=== PATIENT | female | born 1940 | race Caucasian/White ===

== ENCOUNTER 2019-12-13 00:57 | Inpatient (IN) | payer MEDICARE, SELFPAY ==
[2019-12-13] VITALS (22 sets, daily range): BP systolic 109–145; BP diastolic 62–89; PULSE 16–98; RESP 16–24; TEMP 36.6–36.7; O2SAT 88–97; BMI 25.4
--- NOTE | ~2019-12-13 | XR_ITS ---
EXAMINATION: XR chest 2V DATE: 12/13/2019 02:01 INDICATION: Shortness of breath TECHNIQUE: PA and lateral views of the chest were obtained. COMPARISON: Chest radiograph dated 11/13/2019 FINDINGS: Airspace opacities in the bilateral lower lung zones. Bilateral calcified pulmonary nodules and calci fied mediastinal lymph nodes consistent with old granulomatous disease. Blunting at the costophrenic angles consistent with small bilateral pleural effusions. No pneumothorax. Megaly. Median sternotomy wires and mediastinal surgical clips are seen, likely from prior coronary artery bypass grafting. Tor tuous and atherosclerotic thoracic aorta. Cholecystectomy clips in the right upper quadrant. Right re nal artery stenting. Thoracic kyphosis with chronic T8 first fracture. IMPRESSION: 1. Bibasilar airspace opacities which could represent pulmonary edema, pneumonia and/or atelectasis w ith small bilateral pleural effusions. 2. Cardiomegaly. Reviewed, dictated and finalized at location A. CRIPTION CLERK IMPRESSION: 1. Bibasilar airspace opacities which could represent pulmonary edema, pneumoni a and/or atelectasis with small bilateral pleural effusions. 2. Cardiomegaly.
--- NOTE | ~2019-12-13 | XR_ITS ---
EXAMINATION: XR chest 1V portable DATE: 12/15/2019 05:43 INDICATION: Heart failure. TECHNIQUE: A single frontal view of the chest was obtained. COMPARISON: Chest 2 views 12/13/2019, CT abdomen and pelvis 11/11/2019 FINDINGS: The patient is rotated to her right. There is mild atelectasis in the lower lung zones. The re is a diffuse interstitial pattern bilaterally, consistent with mild pulmonary edema. Calcified pul monary nodules and calcified hilar and mediastinal lymph nodes are consistent with old granulomatous disease. No pleural effusion or pneumothorax. Cardiomegaly is noted. Median sternotomy wires and medi astinal surgical clips are seen, likely from prior coronary artery bypass grafting. Surgical clips in the right upper quadrant are likely from cholecystectomy. IMPRESSION: 1. Mild pulmonary edema. 2. Cardiomegaly. Reviewed, dictated and finalized at location A. ROOM MANAGER
--- NOTE | 2019-12-13 01:04 | ECG_ITS ---
Measurements Intervals [place] Rate: 73 P: HI: 0 QRS: 27 QRSD: 133 T: 189 QT: 451 QTc: 500 Interpretive Statements ATRIAL FIBRILLATION LEFT BUNDLE BRANCH BLOCK ST-T WAVE ABNORMALITY IN LATERAL LEADS- CONSIDER ISCHEMIA BASELINE ARTIFACT- III, AVL, V1 ABNORMAL ECG Electronically Signed On 12-13-2019 7:12:21 PHOTO JOURNALIST by Reinaldo Crowell D.O.
--- NOTE | 2019-12-13 01:06 | ED.SOB ---
HPI - SOB/Dyspnea General Chief Complaint: Shortness of Breath/Dyspnea Stated Complaint: sob Time Seen by Provider: 12/13/19 01:05 Source: patient and RN notes reviewed Mode of arrival: EMS Limitations: no limitations History of Present Illness HPI Narrative: Pt is an 79 y/o female who presents to the ED, via EMS, with c/o SOB that began at 11 PM yesterday (12/12/19). Pt notes that her sx woke her up. She states that she felt like she was going to suffocate. She states that she also awoke with chest pain. Pt denies being on oxygen at home. Pt's O2 saturation was 85% on room air. Pt was placed on 2L NC by EMS. Pt received 1 NTG spray and Lasix IV. Pt states that her chest pain has resolved after the NTG. Pt has a hx of CHF and pulmonary edema. Pt notes that she takes Lasix as prescribed. Pt denies diaphoresis, nausea, dizziness, cough, and a fever. Pt's cardiolgist is Dr. Duke and pt's laminating machine operator is Dr. Russell. MD elicited complaint: shortness of breath Pertinent past history: congestive heart failure Onset (ago): minute(s) Timing: constant Known history of: congestive heart failure Associated symptoms: chest pain (resolved) Treatment prior to arrival: oxygen (2L NC), nitroglycerin (1 spray) and diuretics (Lasix) Related Data Home oxygen amount: none Home Medications Medication Instructions Recorded Confirmed clopidogrel 75 mg PO DAILY 09/08/19 11/11/19 diazepam [Valium] 10 mg PO Q6H PRN 09/08/19 11/11/19 levothyroxine 100 mcg PO DAILY 09/08/19 11/11/19 potassium chloride 20 meq PO DAILY 09/08/19 11/11/19 simvastatin 20 mg PO HS 09/08/19 11/11/19 venlafaxine 75 mg PO QACLUNCH 09/08/19 11/11/19 Eliquis 2.5 mg PO Q12H 11/11/19 11/11/19 amiodarone [Pacerone] 200 mg PO DAILY@0800 11/11/19 11/11/19 amlodipine [Norvasc] 10 mg PO DAILY 11/11/19 11/11/19 furosemide 40 mg PO BID 11/11/19 11/11/19 metoprolol tartrate 100 mg PO Q12H 11/11/19 11/11/19 Avapro 300 mg PO 1300 12/13/19 12/13/19 oxycodone-acetaminophen [Percocet] 1 tablet PO Q6H PRN 12/13/19 12/13/19 Allergies Allergy/AdvReac Type Severity Reaction Status Date / Time No Known Allergies Allergy Verified 12/13/19 01:09 Review of Systems Review of Systems: All systems reviewed & are unremarkable except as noted in HPI and below Constitutional: Constitutional: Denies fever(s) Cardiovascular: Cardiovascular: Denies diaphoresis Respiratory: Respiratory: Denies cough and Reports dyspnea Gastrointestinal: Gastrointestinal: Denies nausea Neurologic: Denies dizziness [facility] Past Medical History Medical History (Updated 12/13/19 @ 07:49 by Windy Elias MD) Acute respiratory failure with hypoxia Anxiety Aortic stenosis Severe Atrial flutter Burst fracture of lumbar vertebra Chronic renal failure, stage 3 (moderate) Congestive heart failure Mixed Coronary artery disease Depression DVT prophylaxis Foot fracture, right History of basal cell carcinoma History of stent insertion of renal artery Hyperlipidemia Hypertension Hypokalemia Hypothyroidism Hypoxemia Myocardial infarction Osteoporosis PAF (paroxysmal atrial fibrillation) Cardioverted Renal artery stenosis Occluded right renal artery Surgical History Surgical History H/O hysterectomy for benign disease History of cardiac catheterization History of renal stent Hx of CABG Hx of cholecystectomy Family History Family History Mother Heart failure Hypertension Father Heart failure Hypertension Sibling Heart failure Diabetes mellitus Sibling Heart failure Sibling Alzheimer disease Social History Social History (Updated 12/13/19 @ 05:29 by Deysi Saenz NP) Social History: We had a long discussion about DNR. The patient states she understands with a DNR is in at this time she wants to leave herself a DNR. She still continues to live at [facility]
[2019-12-13 01:27] LABS: Basophils Percent Auto 0.6 % (0.2-1.2); Eosinophils Absolute Auto 0.3 K/mm3 (0-0.3); Eosinophils Percent Auto 3.8 % (0-4.4); Hematocrit 38.9 % (37.0-47.0); Immature Granulocyte Absolute 0.03 K/mm3 (0.00-0.031); Immature Granulocyte Percent A 0.5 % (0-0.5); Lymphocytes Absolute Auto 1.19 K/mm3 (0.9-3.2); Lymphocytes Percent Auto 18.3 % (18.3-44.2); Mean Corpuscular HGB Conc 33.4 g/dl (32-36); Mean Corpuscular Hemoglobin 33.9 pg (26-34); Mean Corpuscular Volume 101.3 fl (80-100); Mean Platelet Volume 9.4 fl (7.4-10.4); Monocytes Absolute Auto 0.5 K/mm3 (0.1-0.6); Monocytes Percent Auto 8.3 % (2.6-8.5); Neutrophils Absolute Auto 4.5 K/mm3 (1.3-6.7); Neutrophils Percent Auto 68.5 % (45.5-73.1); Platelet Count Result 258 k/mm3 (150-375); Red Blood Count 3.84 M/mm3 (4.2-5.4); Red Cell Distribution Width 15.1 % (11.5-14.5); White Blood Count 6.5 K/mm3 (4.5-10.0)
[2019-12-13 01:39] LABS: Blood Urea Nitrogen 36 mg/dL (7-17); Calcium 8.7 mg/dL (8.4-10.2); Carbon Dioxide 26 mmol/L (22-30); Chloride 95 mmol/L (98-107); Estimated CRCL calculation 16 ml/min; Estimated Glomerular Filt Rate 25; Glucose 162 mg/dL (65-105); Potassium 3.6 mmol/L (3.4-5.0); Sodium 135 mmol/L (137-145)
[2019-12-13 01:43] LABS: Partial Thromboplastin Time 24.8 SECONDS (22.3-36.8)
[2019-12-13 01:43] LABS: Alveolar/Arterial O2 Gradient 80.7 mmHg; Base Excess ABG -1.4 mEq/l (+/-2.0); Carboxyhemoglobin 1.2 % THb (0-2.0); Fractional Inspired Oxygen 28 %; HCO3 ABG 24.8 mEq/l (22.0-26.0); Oxygen Content ABG 16.1 %vol (16.0-22.0); Oxygen Saturation ABG 90.5 % (95.0-100.0); Oxyhemoglobin 89.3 % THb (90.0-100.0); PCO2 ABG 47.6 mmHg (35.0-45.0); PO2 ABG 62.8 mmHg (80.0-100.0); PO2 FiO2 Ratio Arterial Blood 2.24 %; Reduced Hemoglobin 9.5 %THb (0-5.0); Total Hemoglobin 12.8 g/dL (12.0-18.0); pH ABG 7.335 (7.350-7.450)
[2019-12-13 01:44] LABS: Device NASAL CANNULA; Modified Allen's Test Pass; Site Drawn RIGHT RADIAL
[2019-12-13 01:51] LABS: NT Pro B Type Natriuretic Pept 12500 PG/ML (5-100); Troponin I < 0.012 ng/mL (0.000-0.034)
--- NOTE | 2019-12-13 05:23 | PM.IMHP ---
H&P: HPI History of Present Illness Chief complaint: chf exacerbation Narrative: Olivia Horn is a 79 year old female who has a history of severe aortic stenosis and mixed congestive heart failure. The patient was last admitted here about a month ago. [facility]. Last month she was in atrial fibrillation and got a cardioversion. The patient still remains in sinus rhythm. She still lives at [facility] [address]. The patient stated that she is able to lie flat but is short of breath with exertion. The patient stated that this shortness of breath woke her up in the middle of the night. She denies any chest pain but stated that it is more in her upper back is she has had this upper back pain since she last left here last month. Patient's BNP was noted to be 12,500. She was given IV Lasix in the emergency room. Consult was placed for her concessionist. Date of service 12/13/2019. Review of Systems Review of Systems: All systems reviewed & are unremarkable except as noted in HPI and below Constitutional: Constitutional: Reports as per HPI and Reports no additional constitutional complaints Eyes: Eyes: Reports as per HPI and Reports no additional eye complaints ENT: Reports system reviewed and no additional complaints, except as documented and Reports Normal hearing present Cardiovascular: Cardiovascular: Reports no additional cardiovascular complaints Respiratory: Respiratory: Reports no additional respiratory complaints and Reports no additional respiratory complaints Gastrointestinal: Gastrointestinal: Reports as per HPI and Reports no additional gastrointestinal complaints Musculoskeletal: Musculoskeletal: Reports no additional musculoskeletal complaints Integumentary/Breasts: Skin/Breast: Reports system reviewed and no additional complaints, except as docu and Reports as per HPI Neurologic: Reports system reviewed and no additional complaints, except as documented, Reports as per HPI and Reports Normal hearing present Psychiatric: Psychiatric: Reports no additional psychiatric complaints and Reports as per HPI Endocrine: Endocrine: Reports no additional endocrine complaints Hematologic/Lymphatic: Hematologic/Lymphatic: Reports no additional hematologic/lymphatic complaints Allergic/Immunologic: Allergic/Immunologic: Reports no additional allergic/immunologic complaints [facility] Past Medical History Medical History (Updated 12/13/19 @ 05:28 by Deysi Saenz NP) Acute respiratory failure with hypoxia Anxiety Aortic stenosis Severe Atrial flutter Burst fracture of lumbar vertebra Chronic renal failure, stage 3 (moderate) Congestive heart failure Mixed Coronary artery disease Depression DVT prophylaxis Foot fracture, right History of basal cell carcinoma History of stent insertion of renal artery Hyperlipidemia Hypertension Hypokalemia Hypothyroidism Hypoxemia Myocardial infarction Osteoporosis PAF (paroxysmal atrial fibrillation) Cardioverted Renal artery stenosis Occluded right renal artery Surgical History Surgical History H/O hysterectomy for benign disease History of cardiac catheterization History of renal stent Hx of CABG Hx of cholecystectomy Family History Family History Mother Heart failure Hypertension Father Heart failure Hypertension Sibling Heart failure Diabetes mellitus Sibling Heart failure Sibling Alzheimer disease Social History Social History (Updated 12/13/19 @ 05:29 by Deysi Saenz NP) Social History: We had a long discussion about DNR. The patient states she understands with a DNR is in at this time she wants to leave herself a DNR. She still continues to live at [facility]. 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 Smoking status: Never smoker [place]
[2019-12-13 08:30] LABS: Troponin I < 0.012 ng/mL (0.000-0.034)
[2019-12-13] MEDS: FUROSEMIDE INJ 40 MG/4 ML VIAL 20 MG IV PUSH ×2 (08:49→20:33)
[2019-12-13] MEDS: CLOPIDOGREL BISULFATE 75 MG TABLET PO (08:50)
[2019-12-13] MEDS: METOPROLOL TARTRATE 50 MG TAB 100 MG PO ×2 (08:50→20:34)
[2019-12-13] MEDS: LEVOTHYROXINE SODIUM 100 MCG TABLET PO (08:50)
[2019-12-13] MEDS: POTASSIUM CHLORIDE 20 MEQ TABLET.ER PO (08:51)
[2019-12-13] MEDS: AMIODARONE HCL 200 MG TABLET PO (08:51)
[2019-12-13] MEDS: AMLODIPINE BESYLATE 5 MG TABLET 10 MG PO (08:51)
[2019-12-13] MEDS: VENLAFAXINE HCL XR 75 MG CAP.ER.24H PO (12:05)
--- NOTE | 2019-12-13 12:27 | PM.CNCAR ---
Assessment and Plan Assessment and plan (1) Congestive heart failure: Qualifiers: Heart failure type: unspecified Code(s): I50.9 - Heart failure, unspecified Status: Chronic Assessment and Plan: Acute on chronic decompensated heart failure with preserved ejection fraction. Symptomatically improved with IV Lasix, persistent crackles on examination. Continue with IV diuresis, monitor renal function and electrolytes. Monitor volume status. Ambulate with caution. Compliance with medications counseling performed. I would reduce amlodipine to 5 mg daily. (2) PAF (paroxysmal atrial fibrillation): Code(s): I48.0 - Paroxysmal atrial fibrillation Status: Chronic Assessment and Plan: Atrial fibrillation, heart rate controlled. Patient counseled not to discontinue anticoagulation unless otherwise explicitly advised. Counseled increased stroke risk. Patient is convinced her back pain is caused by her Eliquis yet admits for back pain has improved and in fact has worsened despite stopping Eliquis over 1 week ago. Her back pain is not related to anticoagulation use, H&H stable to evidence of bleeding or history of recent falls or trauma. Patient does not agree to restart Eliquis. She is reluctant to begin alternative such as Xarelto and refuses warfarin. Explained the importance of systemic anticoagulation in detail. All questions answered to her satisfaction yet she states she can't get past that she thinks Eliquis is causing her back pain. I informed her she must make a decision and inform us of which she will agree to understanding the ongoing risk of bleeding versus stroke risk. (3) Aortic stenosis: Qualifiers: Cardiac valve disease etiology: etiology unspecified Qualified Code(s): I35.0 - Nonrheumatic aortic (valve) stenosis Code(s): I35.0 - Nonrheumatic aortic (valve) stenosis Status: Chronic Assessment and Plan: Severe symptomatic aortic stenosis. She is not a good candidate for open aortic valve replacement. TAVR potential option. Patient is not definite on what she wants to do in this regard either. I explained the natural history of progression, limited life expectancy should she decide to do nothing along with increasing risk for further decompensated heart failure, declining quality of life, activity tolerance. Patient verbalized understanding. (4) Acute respiratory failure with hypoxia: Code(s): J96.01 - Acute respiratory failure with hypoxia Status: Acute Assessment and Plan: Stable, improved with IV diuresis. (5) Hypertension: Qualifiers: Hypertension type: essential hypertension Qualified Code(s): I10 - Essential (primary) hypertension Code(s): I10 - Essential (primary) hypertension Status: Chronic Assessment and Plan: Stable. Avoid hypotension given severe symptomatic aortic stenosis which may be very dangerous. Reduce Avapro to 150 mg daily. Reduce amlodipine to 5 mg daily. Monitor BP closely. (6) Chronic renal failure, stage 3 (moderate): Code(s): N18.3 - Chronic kidney disease, stage 3 (moderate) Status: Chronic Assessment and Plan: Explained potential risk for worsening renal failure with TAVR workup including CT scan, TAVR procedure. She is aware if things progression may require hemodialysis but is not clear what she desires in general. (7) Coronary artery disease: Qualifiers: Coronary Disease-Associated Artery/Lesion type: bypass graft [place] vs. transplanted heart: [place] heart Associated angina: without angina Qualified Code(s): I25.810 - Atherosclerosis of coronary artery bypass graft(s) without angina pectoris Code(s): I25.10 - Atherosclerotic heart disease of [place] coronary artery without angina pectoris Status: Acute Assessment and Plan: Continue aggressive medical therapy statin, beta-mansi as well as clopidogrel. Discussed
[2019-12-13] MEDS: IRBESARTAN 150 MG TABLET 300 MG PO (13:45)
--- NOTE | 2019-12-13 15:15 | PM.IMPN ---
Progress Note: A&P Assessment and Plan (1) Congestive heart failure: Qualifiers: Heart failure type: unspecified Code(s): I50.9 - Heart failure, unspecified Status: Chronic Assessment and Plan: Acute on chronic. Patient is clinically improving with diuresis. Cardiology is following and appreciate recommendations. Continue with diuresis for now Monitor UO Monitor for improvements. Wean O2 when tolerable (2) Aortic stenosis: Qualifiers: Cardiac valve disease etiology: etiology unspecified Qualified Code(s): I35.0 - Nonrheumatic aortic (valve) stenosis Code(s): I35.0 - Nonrheumatic aortic (valve) stenosis Status: Chronic Assessment and Plan: Patient is a DNR. She is followed by Dr. Duke. Cardiology consulted and appreciate recommendations Further discussion of possible TAVR and work up in some point in her future per Cardiology (3) Chronic kidney disease, stage 3: Code(s): N18.3 - Chronic kidney disease, stage 3 (moderate) Status: Acute Assessment and Plan: Patient's creatinine is 1.9 today; with baseline typically between 1.2-1.4 on EMR. Monitor closely as she is on diuretics. Trend tomorrow (4) Hypothyroidism: Qualifiers: Hypothyroidism type: acquired Qualified Code(s): E03.9 - Hypothyroidism, unspecified Code(s): E03.9 - Hypothyroidism, unspecified Status: Chronic Assessment and Plan: Continue with the levothyroxine. (5) Hyperlipidemia: Qualifiers: Hyperlipidemia type: unspecified Qualified Code(s): E78.5 - Hyperlipidemia, unspecified Code(s): E78.5 - Hyperlipidemia, unspecified Status: Chronic Assessment and Plan: Continue with her simvastatin (6) Depression: Qualifiers: Depression Type: unspecified Qualified Code(s): F32.9 - Major depressive disorder, single episode, unspecified Code(s): F32.9 - Major depressive disorder, single episode, unspecified Status: Chronic Assessment and Plan: Continue with the venlafaxine (7) Anxiety: Code(s): F41.9 - Anxiety disorder, unspecified Status: Chronic Assessment and Plan: Continue with Valium. (8) PAF (paroxysmal atrial fibrillation): Code(s): I48.0 - Paroxysmal atrial fibrillation Status: Chronic Assessment and Plan: Patient has refused Eliquis at this time due to back pain. She stopped taking roughly 1 week prior Further recommendations per Cardiology Her home Eliquis has been ordered for this hospital stay Subjective Date/time seen: 12/13/19 15:15 Interval history: Patient is a 79 yo F with history of severe , CHF, CKDIII, HTN as well as multiple other comorbidities who is here for acute on chronic CHF exacerbation. Patient states she is feeling much better today. She states her swelling in her legs has improved and she is breathing much better today, but is still requiring 2L O2 NC. Patient otherwise has no complaints today. Denies f/c/ns, headaches, dizziness, lightheadedness, changes in v/h, cp/palpitations, n/v/d/c, abd pain, dysphagia, melena, brbpr, dysuria, hematuria, cloudy urine, s/sx of stroke. Review of Systems Review of Systems: All systems reviewed & are unremarkable except as noted in HPI and below Exam Narrative: Exam Narrative: Patient lying supine in bed with head raised at time of visit Const: General: comfortable, no acute distress, well developed, alert and ill appearing chronically Orientation/consciousness: patient oriented x3 HENMT: Head: normocephalic and atraumatic Ears: external ears normal General nose exam
[2019-12-13] MEDS: APIXABAN 2.5 MG TABLET PO (17:43)
[2019-12-13] MEDS: SIMVASTATIN 20 MG TABLET PO (20:34)
[2019-12-14] VITALS (17 sets, daily range): BP systolic 107–148; BP diastolic 62–93; PULSE 67–100; RESP 18–24; TEMP 36.1–36.6; O2SAT 90–96
[2019-12-14 05:14] LABS: Basophils Absolute Auto 0.1 K/mm3 (0.0-0.1); Basophils Percent Auto 0.8 % (0.2-1.2); Eosinophils Absolute Auto 0.2 K/mm3 (0-0.3); Eosinophils Percent Auto 3.5 % (0-4.4); Hemoglobin 12.3 g/dL (12.0-15.0); Immature Granulocyte Absolute 0.02 K/mm3 (0.00-0.031); Immature Granulocyte Percent A 0.3 % (0-0.5); Lymphocytes Absolute Auto 1.17 K/mm3 (0.9-3.2); Lymphocytes Percent Auto 18.8 % (18.3-44.2); Mean Corpuscular HGB Conc 32.4 g/dl (32-36); Mean Corpuscular Hemoglobin 33.3 pg (26-34); Mean Platelet Volume 9.7 fl (7.4-10.4); Monocytes Absolute Auto 0.5 K/mm3 (0.1-0.6); Monocytes Percent Auto 8.3 % (2.6-8.5); Neutrophils Absolute Auto 4.3 K/mm3 (1.3-6.7); Neutrophils Percent Auto 68.3 % (45.5-73.1); Platelet Count Result 235 k/mm3 (150-375); Red Blood Count 3.69 M/mm3 (4.2-5.4); Red Cell Distribution Width 15.4 % (11.5-14.5); White Blood Count 6.2 K/mm3 (4.5-10.0)
[2019-12-14 05:29] LABS: Blood Urea Nitrogen 27 mg/dL (7-17); Calcium 8.5 mg/dL (8.4-10.2); Carbon Dioxide 29 mmol/L (22-30); Chloride 98 mmol/L (98-107); Estimated CRCL calculation 21 ml/min; Estimated Glomerular Filt Rate 36; Glucose 110 mg/dL (65-105); Potassium 3.3 mmol/L (3.4-5.0); Sodium 140 mmol/L (137-145)
[2019-12-14] MEDS: LEVOTHYROXINE SODIUM 100 MCG TABLET PO (05:41)
[2019-12-14] MEDS: AMIODARONE HCL 200 MG TABLET PO (09:09)
[2019-12-14] MEDS: CLOPIDOGREL BISULFATE 75 MG TABLET PO (09:09)
[2019-12-14] MEDS: POTASSIUM CHLORIDE 20 MEQ TABLET 40 MEQ PO (09:09)
[2019-12-14] MEDS: AMLODIPINE BESYLATE 5 MG TABLET PO (09:09)
[2019-12-14] MEDS: APIXABAN 2.5 MG TABLET PO ×2 (09:09→17:35)
[2019-12-14] MEDS: FUROSEMIDE INJ 40 MG/4 ML VIAL 20 MG IV PUSH ×2 (09:09→17:35)
[2019-12-14] MEDS: METOPROLOL TARTRATE 50 MG TAB 100 MG PO ×2 (09:10→20:43)
[2019-12-14] MEDS: POTASSIUM CHLORIDE 20 MEQ TABLET.ER PO (09:10)
[2019-12-14] MEDS: VENLAFAXINE HCL XR 75 MG CAP.ER.24H PO (12:12)
[2019-12-14] MEDS: IRBESARTAN 150 MG TABLET PO (12:15)
--- NOTE | 2019-12-14 16:16 | PM.IMPN ---
Progress Note: A&P Assessment and Plan (1) Congestive heart failure: Qualifiers: Heart failure type: unspecified Code(s): I50.9 - Heart failure, unspecified Status: Chronic Assessment and Plan: Acute on chronic. Patient is clinically improving with diuresis, although still having crackles on lung exam. Cr is 1.40 today, improved from yesterday. Cardiology is following and appreciate recommendations. Continue with diuresis for now Monitor UO Monitor for improvements. Wean O2 when tolerable CXR tomorrow morning per Cardiology (2) Aortic stenosis: Qualifiers: Cardiac valve disease etiology: etiology unspecified Qualified Code(s): I35.0 - Nonrheumatic aortic (valve) stenosis Code(s): I35.0 - Nonrheumatic aortic (valve) stenosis Status: Chronic Assessment and Plan: Patient is a DNR. She is followed by Dr. Duke. Cardiology consulted and appreciate recommendations Further discussion of possible TAVR and work up in some point in her future per Cardiology. Daughter states she is in the process of meeting with a Compo Caster at [facility]; she had an appointment a few weeks ago, but had to cancel due to not feeling well. (3) Chronic kidney disease, stage 3: Code(s): N18.3 - Chronic kidney disease, stage 3 (moderate) Status: Acute Assessment and Plan: Patient's creatinine is 1.4 today; improvement. Baseline typically between 1.2-1.4 on EMR. Monitor closely as she is on diuretics. Trend tomorrow (4) Hypothyroidism: Qualifiers: Hypothyroidism type: acquired Qualified Code(s): E03.9 - Hypothyroidism, unspecified Code(s): E03.9 - Hypothyroidism, unspecified Status: Chronic Assessment and Plan: Continue with the levothyroxine. (5) Hyperlipidemia: Qualifiers: Hyperlipidemia type: unspecified Qualified Code(s): E78.5 - Hyperlipidemia, unspecified Code(s): E78.5 - Hyperlipidemia, unspecified Status: Chronic Assessment and Plan: Continue with her simvastatin (6) Depression: Qualifiers: Depression Type: unspecified Qualified Code(s): F32.9 - Major depressive disorder, single episode, unspecified Code(s): F32.9 - Major depressive disorder, single episode, unspecified Status: Chronic Assessment and Plan: Continue with the venlafaxine (7) Anxiety: Code(s): F41.9 - Anxiety disorder, unspecified Status: Chronic Assessment and Plan: Continue with Valium. (8) PAF (paroxysmal atrial fibrillation): Code(s): I48.0 - Paroxysmal atrial fibrillation Status: Chronic Assessment and Plan: Patient agreeable to Eliquis now. She stopped taking roughly 1 week prior to presentation due to back pain Further recommendations per Cardiology Subjective Date/time seen: 12/14/19 16:16 Interval history: Patient is a 79 yo F with history of severe , CHF, CKDIII, HTN as well as multiple other comorbidities who is here for acute on chronic CHF exacerbation. Patient states she continues to improve. Her breathing has improved although still on 1L O2 NC. Her swelling continues to improve. Patient otherwise has no complaints today. Denies f/c/ns, headaches, dizziness, lightheadedness, changes in v/h, cp/palpitations, SOB, cough, n/v/d/c, abd pain, dysphagia, melena, brbpr, dysuria, hematuria, cloudy urine, s/sx of stroke. Review of Systems Review of Systems: All systems reviewed & are unremarkable except as noted in HPI and below Exam Narrative: Exam Narrative: Patient lying on right side in bed; daughter is in the room visiting Const: Yash
--- NOTE | 2019-12-14 16:22 | PM.PNCARD ---
Progress Note: A&P Assessment and Plan (1) Congestive heart failure: Qualifiers: Heart failure type: unspecified Code(s): I50.9 - Heart failure, unspecified Status: Chronic Assessment and Plan: Acute on chronic decompensated heart failure with preserved ejection fraction. -She remains symptomatically improved with IV Lasix, persistent crackles on examination. Continue IV diuresis. Monitor renal function and electrolytes. I/O, daily weight. -Ambulate with caution. -CXR in AM. -Wean O2 - (2) PAF (paroxysmal atrial fibrillation): Code(s): I48.0 - Paroxysmal atrial fibrillation Status: Chronic Assessment and Plan: Atrial fibrillation, heart rate controlled. Patient counseled not to discontinue anticoagulation unless otherwise explicitly advised. She has agreed to resume Eliquis. Tolerating well. (3) Aortic stenosis: Qualifiers: Cardiac valve disease etiology: etiology unspecified Qualified Code(s): I35.0 - Nonrheumatic aortic (valve) stenosis Code(s): I35.0 - Nonrheumatic aortic (valve) stenosis Status: Chronic Assessment and Plan: Severe symptomatic aortic stenosis. She is not a good candidate for open aortic valve replacement. TAVR workup underway at [facility]. (4) Acute respiratory failure with hypoxia: Code(s): J96.01 - Acute respiratory failure with hypoxia Status: Acute Assessment and Plan: Stable, improved with IV diuresis. Wean O2 as tolerated. Home O2 eval. (5) Hypertension: Qualifiers: Hypertension type: essential hypertension Qualified Code(s): I10 - Essential (primary) hypertension Code(s): I10 - Essential (primary) hypertension Status: Chronic Assessment and Plan: Stable. Avoid hypotension given severe symptomatic aortic stenosis which may be very dangerous. Reduce Avapro to 150 mg daily. Reduce amlodipine to 5 mg daily. Monitor BP closely. (6) Chronic renal failure, stage 3 (moderate): Code(s): N18.3 - Chronic kidney disease, stage 3 (moderate) Status: Chronic Assessment and Plan: Explained potential risk for worsening renal failure with TAVR workup including CT scan, TAVR procedure. She is aware if things progression may require hemodialysis but is not clear what she desires in general. (7) Coronary artery disease: Qualifiers: Coronary Disease-Associated Artery/Lesion type: bypass graft [place] vs. transplanted heart: [place] heart Associated angina: without angina Qualified Code(s): I25.810 - Atherosclerosis of coronary artery bypass graft(s) without angina pectoris Code(s): I25.10 - Atherosclerotic heart disease of [place] coronary artery without angina pectoris Status: Acute Assessment and Plan: Continue aggressive medical therapy statin, beta-mansi as well as clopidogrel. Discussed increased bleeding risk with anticoagulation and antiplatelet therapy. Patient states she has been on clopidogrel for many years and refuses to stop. Subjective Date/time seen: Date of service: 12/14/19 16:22 Follow-up for CHF, aortic stenosis Patient once again states she wants to go home. Remains on oxygen, denies shortness of breath but tachypneic lying in bed. No chest pain. States she feels fine which she has stated every day. Back pain better with pain medication. No chest pain. Denies dizziness, palpitations. Sons at bedside discussed plan of care. Review of Systems Review of Systems: All systems reviewed & are unremarkable except as noted in HPI and below Constitutional: Constitutional: Reports as per HPI, Reports no additional constitutional complaints, Denies difficulty sleeping, Reports fatigue, Denies headache(s) and Denies lethargy Eyes: Eyes: Reports as per HPI and Reports no additional eye complaints ENT: Reports system reviewed and no additional complaints, except as documented, Reports as per HPI and De
[2019-12-14] MEDS: SIMVASTATIN 20 MG TABLET PO (20:43)
[2019-12-15] VITALS (19 sets, daily range): BP systolic 129–141; BP diastolic 67–92; PULSE 65–104; RESP 12–20; TEMP 36–36.8; O2SAT 91–96
[2019-12-15 04:54] LABS: Hematocrit 40.7 % (37.0-47.0); Hemoglobin 13.7 g/dL (12.0-15.0); Mean Corpuscular HGB Conc 33.7 g/dl (32-36); Mean Corpuscular Hemoglobin 34.2 pg (26-34); Mean Corpuscular Volume 101.5 fl (80-100); Mean Platelet Volume 9.4 fl (7.4-10.4); Platelet Count Result 277 k/mm3 (150-375); Red Blood Count 4.01 M/mm3 (4.2-5.4); Red Cell Distribution Width 15.5 % (11.5-14.5); White Blood Count 6.5 K/mm3 (4.5-10.0)
[2019-12-15 05:14] LABS: Blood Urea Nitrogen 19 mg/dL (7-17); Calcium 8.9 mg/dL (8.4-10.2); Carbon Dioxide 32 mmol/L (22-30); Chloride 100 mmol/L (98-107); Estimated CRCL calculation 25 ml/min; Estimated Glomerular Filt Rate 43; Glucose 140 mg/dL (65-105); Magnesium 2.1 mg/dL (1.6-2.3); Potassium 3.8 mmol/L (3.4-5.0); Sodium 142 mmol/L (137-145)
[2019-12-15] MEDS: LEVOTHYROXINE SODIUM 100 MCG TABLET PO (06:10)
--- NOTE | 2019-12-15 09:01 | P.CDI_ITS ---
CDI Query Clarification Request -Acute respiratory failure has been documented by Dr Seymour -12/13 ABG's pH 7.335, pCO2 47.6, pO2 62.8, HCO3 24.8, O2sats 90.5% on 2LO2 -Pt on O2 at 2L here -No mention of acute respiratory failure by hospitalist Please clarify if acute respiratory failure was: * Ruled in * Ruled out * Unable to determine
[2019-12-15] MEDS: AMIODARONE HCL 200 MG TABLET PO (09:18)
[2019-12-15] MEDS: AMLODIPINE BESYLATE 5 MG TABLET PO (09:18)
[2019-12-15] MEDS: POTASSIUM CHLORIDE 20 MEQ TABLET.ER PO (09:19)
[2019-12-15] MEDS: CLOPIDOGREL BISULFATE 75 MG TABLET PO (09:19)
[2019-12-15] MEDS: FUROSEMIDE INJ 40 MG/4 ML VIAL 20 MG IV PUSH ×2 (09:19→17:51)
[2019-12-15] MEDS: APIXABAN 2.5 MG TABLET PO ×2 (09:19→17:49)
[2019-12-15] MEDS: METOPROLOL TARTRATE 50 MG TAB 100 MG PO ×2 (09:19→20:18)
[2019-12-15] MEDS: IRBESARTAN 150 MG TABLET PO (12:38)
[2019-12-15] MEDS: VENLAFAXINE HCL XR 75 MG CAP.ER.24H PO (12:38)
--- NOTE | 2019-12-15 14:33 | PM.PNCARD ---
Progress Note: A&P Assessment and Plan (1) Congestive heart failure: Qualifiers: Heart failure chronicity: acute on chronic Heart failure type: diastolic Qualified Code(s): I50.33 - Acute on chronic diastolic (congestive) heart failure Code(s): I50.9 - Heart failure, unspecified Status: Chronic Assessment and Plan: Acute on chronic decompensated heart failure with preserved ejection fraction. Continues to be symptomatically improved with IV Lasix, persistent crackles on examination. Continue IV diuresis. Monitor renal function and electrolytes. I/O, daily weight. Ambulate with assistance Mild pulmonary edema on chest x-ray Still requiring 1 L of oxygen. Will need home O2 eval prior to discharge. (2) PAF (paroxysmal atrial fibrillation): Code(s): I48.0 - Paroxysmal atrial fibrillation Status: Chronic Assessment and Plan: Atrial fibrillation, heart rate controlled. She has agreed to resume Eliquis. Tolerating well. (3) Aortic stenosis: Qualifiers: Cardiac valve disease etiology: etiology unspecified Qualified Code(s): I35.0 - Nonrheumatic aortic (valve) stenosis Code(s): I35.0 - Nonrheumatic aortic (valve) stenosis Status: Chronic Assessment and Plan: Severe symptomatic aortic stenosis. She is not a good candidate for open aortic valve replacement. TAVR workup underway at [facility]. Creatinine down 1.2 today. Family asking if she should be transferred to [facility] so that she can continue her workup. She is not unstable. Her pulmonary edema continues to improve. Her renal function is not worsening. There is no urgency in performing the CT scan necessary for her TAVR workup which is usually done as outpatient. Discussed with Dr Seymour. Did not feel there was a need to transfer her at this time. (4) Acute respiratory failure with hypoxia: Code(s): J96.01 - Acute respiratory failure with hypoxia Status: Acute Assessment and Plan: Acute respiratory failure has been ruled out. She is improving with diuretics. (5) Hypertension: Qualifiers: Hypertension type: essential hypertension Qualified Code(s): I10 - Essential (primary) hypertension Code(s): I10 - Essential (primary) hypertension Status: Chronic Assessment and Plan: Stable. Avoid hypotension given severe symptomatic aortic stenosis which may be very dangerous. Reduce Avapro to 150 mg daily. Reduce amlodipine to 5 mg daily. Monitor BP closely. (6) Chronic renal failure, stage 3 (moderate): Code(s): N18.3 - Chronic kidney disease, stage 3 (moderate) Status: Chronic Assessment and Plan: Explained potential risk for worsening renal failure with TAVR workup including CT scan, TAVR procedure. She is aware if things progression may require hemodialysis but is not clear what she desires in general. TAVR workup as above. (7) Coronary artery disease: Qualifiers: Associated angina: without angina Coronary Disease-Associated Artery/Lesion type: bypass graft [place] vs. transplanted heart: [place] heart Qualified Code(s): I25.810 - Atherosclerosis of coronary artery bypass graft(s) without angina pectoris Code(s): I25.10 - Atherosclerotic heart disease of [place] coronary artery without angina pectoris Status: Acute Assessment and Plan: Continue aggressive medical therapy statin, beta-mansi as well as clopidogrel. Discussed increased bleeding risk with anticoagulation and antiplatelet therapy. Patient states she has been on clopidogrel for many years and refuses to stop. Additional Plan Plan discussed with Dr Seymour [id number] 12/15/2019 Time Spent With Patient Time with patient: less than 15
--- NOTE | 2019-12-15 15:36 | PM.IMPN ---
Progress Note: A&P Assessment and Plan (1) Congestive heart failure: Qualifiers: Heart failure type: diastolic Heart failure chronicity: acute on chronic Qualified Code(s): I50.33 - Acute on chronic diastolic (congestive) heart failure Code(s): I50.9 - Heart failure, unspecified Status: Chronic Assessment and Plan: Acute on chronic. Patient is clinically improving with diuresis, although still having crackles on lung exam. Cr is 1.20 today, improved from yesterday. Cardiology is following and appreciate recommendations. CXR showed mild pulmonary edema today. Continue with diuresis for now Monitor UO Monitor for improvements. Wean O2 when tolerable (2) Aortic stenosis: Qualifiers: Cardiac valve disease etiology: etiology unspecified Qualified Code(s): I35.0 - Nonrheumatic aortic (valve) stenosis Code(s): I35.0 - Nonrheumatic aortic (valve) stenosis Status: Chronic Assessment and Plan: Patient is a DNR. She is followed by Dr. Duke. Cardiology consulted and appreciate recommendations Discussed with the patient and the family of the importance of further work up with patient as an outpatient as soon as possible. (3) Acute respiratory failure with hypoxia: Code(s): J96.01 - Acute respiratory failure with hypoxia Status: Acute Assessment and Plan: Patient was found to be hypoxic prior to arrival to the ER, satting 85% on RA; EMS placed patient on 2L NC. Patient satting 94% on 1L O2 on NC. Likely secondary to CHF exacerbation. Showing improvement with diuresis. CXR today shows mild pulmonary edema today. Continue to wean O2 as tolerable Monitor respiratory status during diuresis (4) Chronic kidney disease, stage 3: Code(s): N18.3 - Chronic kidney disease, stage 3 (moderate) Status: Acute Assessment and Plan: Patient's creatinine is 1.2 today; improvement. Baseline typically between 1.2-1.4 on EMR. Monitor closely as she is on diuretics. Trend tomorrow (5) Hypothyroidism: Qualifiers: Hypothyroidism type: acquired Qualified Code(s): E03.9 - Hypothyroidism, unspecified Code(s): E03.9 - Hypothyroidism, unspecified Status: Chronic Assessment and Plan: Continue with the levothyroxine. (6) Hyperlipidemia: Qualifiers: Hyperlipidemia type: unspecified Qualified Code(s): E78.5 - Hyperlipidemia, unspecified Code(s): E78.5 - Hyperlipidemia, unspecified Status: Chronic Assessment and Plan: Continue with her simvastatin (7) Depression: Qualifiers: Depression Type: unspecified Qualified Code(s): F32.9 - Major depressive disorder, single episode, unspecified Code(s): F32.9 - Major depressive disorder, single episode, unspecified Status: Chronic Assessment and Plan: Continue with the venlafaxine (8) Anxiety: Code(s): F41.9 - Anxiety disorder, unspecified Status: Chronic Assessment and Plan: Continue with Valium. (9) PAF (paroxysmal atrial fibrillation): Code(s): I48.0 - Paroxysmal atrial fibrillation Status: Chronic Assessment and Plan: Patient agreeable to Eliquis now. She stopped taking roughly 1 week prior to presentation due to back pain Further recommendations per Cardiology Subjective Date/time seen: 12/15/19 15:36 Interval history: Patient is a 79 yo F with history of severe , CHF, CKDIII, HTN as well as multiple other comorbidities who is here for acute on chronic CHF exacerbation. Patient tells me her breathing is okay today but still requiring 1L O2 N
[2019-12-15] MEDS: DIAZEPAM 10 MG TABLET PO (20:18)
[2019-12-15] MEDS: SIMVASTATIN 20 MG TABLET PO (20:18)
[2019-12-16] VITALS (20 sets, daily range): BP systolic 108–138; BP diastolic 65–90; PULSE 66–98; RESP 16–20; TEMP 35.9–36.5; O2SAT 92–97
[2019-12-16 04:41] LABS: Hematocrit 37.2 % (37.0-47.0); Hemoglobin 12.2 g/dL (12.0-15.0); Mean Corpuscular HGB Conc 32.8 g/dl (32-36); Mean Corpuscular Hemoglobin 34.1 pg (26-34); Mean Corpuscular Volume 103.9 fl (80-100); Mean Platelet Volume 9.7 fl (7.4-10.4); Platelet Count Result 241 k/mm3 (150-375); Red Blood Count 3.58 M/mm3 (4.2-5.4); Red Cell Distribution Width 15.5 % (11.5-14.5); White Blood Count 6.5 K/mm3 (4.5-10.0)
[2019-12-16 04:56] LABS: Blood Urea Nitrogen 16 mg/dL (7-17); Calcium 8.4 mg/dL (8.4-10.2); Carbon Dioxide 32 mmol/L (22-30); Chloride 96 mmol/L (98-107); Estimated CRCL calculation 29 ml/min; Estimated Glomerular Filt Rate 53; Glucose 178 mg/dL (65-105); Magnesium 1.8 mg/dL (1.6-2.3); Potassium 3.4 mmol/L (3.4-5.0); Sodium 138 mmol/L (137-145)
[2019-12-16] MEDS: LEVOTHYROXINE SODIUM 100 MCG TABLET PO (06:02)
[2019-12-16] MEDS: POTASSIUM CHLORIDE 20 MEQ TABLET.ER PO (09:07)
[2019-12-16] MEDS: METOPROLOL TARTRATE 50 MG TAB 100 MG PO ×2 (09:07→21:09)
[2019-12-16] MEDS: AMIODARONE HCL 200 MG TABLET PO (09:08)
[2019-12-16] MEDS: APIXABAN 2.5 MG TABLET PO ×2 (09:08→17:22)
[2019-12-16] MEDS: AMLODIPINE BESYLATE 5 MG TABLET PO (09:08)
[2019-12-16] MEDS: CLOPIDOGREL BISULFATE 75 MG TABLET PO (09:08)
[2019-12-16] MEDS: FUROSEMIDE INJ 40 MG/4 ML VIAL 20 MG IV PUSH ×2 (09:10→17:24)
--- NOTE | 2019-12-16 09:47 | PM.PNCARD ---
Progress Note: A&P Additional Plan 79-year-old lady with coronary artery disease previous CABG and recurrent CHF with critical aortic valve stenosis. CHF is improved following diuresis patient still has some left basilar rales but is breathing relatively comfortably this morning at bed rest. Still has shortness of breath with modest activity such as up to the bathroom. Current regimen will be continued for the time being as she is improving. I will reach out to her surgeon at [facility] to discuss the concept of transferring this patient apparently the next step in her TAVR workup is to perform their CT to determine if her aorta is suitable for this procedure Time Spent With Patient Time with patient: 15 - 25 minutes Subjective Date/time seen: Date of service: 12/16/19 09:47 Interval history: Follow-up for: severe , CHF, CKD 3, HTN , acute on chronic CHF exacerbation. Date of service: 12/16/19 Subjective: Denied chest discomfort, shortness of breath or lightheadedness. Son and [id number] at bedside. Questioning whether or not she needs to be transferred to [facility] so that she can proceed with her CT scan as part of her TAVR workup. Again again discussed the patient's need for AVR or TAVR as she has critical aortic stenosis and recurrent congestive heart failure. Once again daughter is asking about the concept of transferring patient to [facility] for more expedient evaluation/care. Exam Narrative: Exam Narrative: General: Well developed, alert and oriented x3. No apparent distress, mild discomfort due to back pain, lying flat in bed. Cooperative Head: atraumatic, normocephalic Eyes: conjunctivae unremarkable Ears/Nose: external inspection of ears and nose were grossly normal Mouth/Throat: oral mucosa pink and moist, lips are dry Neck: supple, normal range of motion, no jugular venous distention, , trachea midline. Cardiac: Irregular irregular rate and rhythm, normal S1-S2, grade II-III/ late systolic murmur, no clicks or rubs. Lungs: Crackles bilaterally in the bases. Able to complete a sentence Abdomen: Soft, nontender, nondistended, positive bowel sounds throughout. No appreciable hepatomegaly. Extremities: Trace bilateral LE edema, no clubbing or cyanosis. Extremities warm and well perfused. Skin: Warm and dry without ecchymoses, rashes, and/or petechiae. Healed median sternotomy scar Musculoskeletal: Muscle strength and tone intact throughout without obvious deformities. Vascular: Radial pulses 2+ bilaterally, dorsalis pedis pulses 2+ bilaterally, posterior tibialis pulses palpable bilaterally. Neurologic: Cranial nerves 2-12 grossly intact, examination grossly nonfocal Pscyhiatric: Mood calm and appropriate. Const: General: No confusion Orientation/consciousness: No confusion Neuro: General: No confusion Speech: No Abnormal speech present Objective Data Vital Signs Vital Signs: Vital Signs - 24 hr 12/15/19 10:00 12/15/19 12:00 12/15/19 12:32 Temperature 36.8 C Pulse Rate 80 88 78 Respiratory Rate 12 Blood Pressure 132/67 Pulse Oximetry 91 12/15/19 14:00 12/15/19 15:35 12/15/19 16:00 Temperature 36.3 C L Pulse Rate 75 72 104 H Respiratory Rate 16 Blood Pressure 130/81 Pulse Oximetry 94 12/15/19 18:00 12/15/19 20:00 12/15/19 20:18 Temperature 36.2 C L Pulse Rate 97 83 84 Respiratory Rate 18 Blood Pressure 129/87 Pulse Oximetry 96 12/15/19 22:00 12/16/19 00:00 12/16/19 00:32 Temperature 36.4 C Pulse Rate 77 77 77 Respiratory Rate 20 20 Blood Pressure 131/80 Pulse Oximetry 97 97 12/16/19 01:40 12/16/19 04:00 12/16/19 04:45 Temperature 36.5 C Pulse Rate 67 88 88 Respiratory Rate 18 18 Blood Pressure 138/84 Pulse Oximetry 92 92 12/16/19 05:14 12/16/19 08:00 12/16/19 08:22 Temperature 36.1 C L Pulse Rate 87 79 82 Respiratory Rate 16 Blood Pressure 108/80 Pulse Oximetry
[2019-12-16] MEDS: VENLAFAXINE HCL XR 75 MG CAP.ER.24H PO (11:18)
[2019-12-16] MEDS: IRBESARTAN 150 MG TABLET PO (14:01)
--- NOTE | 2019-12-16 15:50 | PM.IMPN ---
Progress Note: A&P Assessment and Plan (1) Congestive heart failure: Qualifiers: Heart failure type: diastolic Heart failure chronicity: acute on chronic Qualified Code(s): I50.33 - Acute on chronic diastolic (congestive) heart failure Code(s): I50.9 - Heart failure, unspecified Status: Chronic Assessment and Plan: Acute on chronic. Patient is clinically improving with diuresis, although still having crackles on lung exam again today. Cr is 1.00 today, improved from yesterday. Cardiology is following and appreciate recommendations. CXR showed mild pulmonary edema yesterday. Continue with diuresis for now Monitor UO Monitor for improvements. Wean O2 when tolerable (2) Aortic stenosis: Qualifiers: Cardiac valve disease etiology: etiology unspecified Qualified Code(s): I35.0 - Nonrheumatic aortic (valve) stenosis Code(s): I35.0 - Nonrheumatic aortic (valve) stenosis Status: Chronic Assessment and Plan: Patient is a DNR. She is followed by Dr. Duke. Cardiology consulted and appreciate recommendations Discussed with the patient and the family of the importance of further work up with patient as an outpatient as soon as possible. (3) Acute respiratory failure with hypoxia: Code(s): J96.01 - Acute respiratory failure with hypoxia Status: Acute Assessment and Plan: Patient was found to be hypoxic prior to arrival to the ER, satting 85% on RA; EMS placed patient on 2L NC. Patient satting 97% on 1L O2 on NC this morning. Likely secondary to CHF exacerbation. Showing improvement with diuresis. CXR yesterday shows mild pulmonary edema today. Continue to wean O2 as tolerable Monitor respiratory status during diuresis (4) Chronic kidney disease, stage 3: Code(s): N18.3 - Chronic kidney disease, stage 3 (moderate) Status: Acute Assessment and Plan: Patient's creatinine is 1.00 today; improvement. Baseline typically between 1.2-1.4 on EMR. Monitor closely as she is on diuretics. Trend tomorrow (5) Hypothyroidism: Qualifiers: Hypothyroidism type: acquired Qualified Code(s): E03.9 - Hypothyroidism, unspecified Code(s): E03.9 - Hypothyroidism, unspecified Status: Chronic Assessment and Plan: Continue with the levothyroxine. (6) Hyperlipidemia: Qualifiers: Hyperlipidemia type: unspecified Qualified Code(s): E78.5 - Hyperlipidemia, unspecified Code(s): E78.5 - Hyperlipidemia, unspecified Status: Chronic Assessment and Plan: Continue with her simvastatin (7) Depression: Qualifiers: Depression Type: unspecified Qualified Code(s): F32.9 - Major depressive disorder, single episode, unspecified Code(s): F32.9 - Major depressive disorder, single episode, unspecified Status: Chronic Assessment and Plan: Continue with the venlafaxine (8) Anxiety: Code(s): F41.9 - Anxiety disorder, unspecified Status: Chronic Assessment and Plan: Continue with Valium. (9) PAF (paroxysmal atrial fibrillation): Code(s): I48.0 - Paroxysmal atrial fibrillation Status: Chronic Assessment and Plan: Patient agreeable to Eliquis now. She stopped taking roughly 1 week prior to presentation due to back pain Further recommendations per Cardiology Subjective Date/time seen: 12/16/19 15:50 Interval history: Patient is a 79 yo F with history of severe , CHF, CKDIII, HTN as well as multiple other comorbidities who is here for acute on chronic CHF exacerbation. Patient tells me her breathing is ok
[2019-12-16] MEDS: SIMVASTATIN 20 MG TABLET PO (21:10)
[2019-12-17] VITALS (8 sets, daily range): BP systolic 112–147; BP diastolic 74–89; PULSE 74–95; RESP 16–24; TEMP 36.5–36.6; O2SAT 84–99
[2019-12-17] MEDS: DIAZEPAM 10 MG TABLET PO (00:09)
[2019-12-17 05:35] LABS: Hematocrit 38.3 % (37.0-47.0); Hemoglobin 12.4 g/dL (12.0-15.0); Mean Corpuscular HGB Conc 32.4 g/dl (32-36); Mean Corpuscular Hemoglobin 33.5 pg (26-34); Mean Corpuscular Volume 103.5 fl (80-100); Mean Platelet Volume 9.8 fl (7.4-10.4); Platelet Count Result 261 k/mm3 (150-375); Red Cell Distribution Width 15.6 % (11.5-14.5); White Blood Count 5.4 K/mm3 (4.5-10.0)
[2019-12-17] MEDS: LEVOTHYROXINE SODIUM 100 MCG TABLET PO (06:14)
[2019-12-17 06:25] LABS: Blood Urea Nitrogen 17 mg/dL (7-17); Calcium 8.9 mg/dL (8.4-10.2); Carbon Dioxide 33 mmol/L (22-30); Chloride 94 mmol/L (98-107); Estimated CRCL calculation 27 ml/min; Estimated Glomerular Filt Rate 48; Glucose 135 mg/dL (65-105); Magnesium 1.8 mg/dL (1.6-2.3); Potassium 3.5 mmol/L (3.4-5.0); Sodium 138 mmol/L (137-145)
[2019-12-17 07:10] LABS: Folic Acid 12.5 ng/mL (2.76->20)
[2019-12-17] MEDS: AMLODIPINE BESYLATE 5 MG TABLET PO (09:44)
[2019-12-17] MEDS: AMIODARONE HCL 200 MG TABLET PO (09:44)
[2019-12-17] MEDS: POTASSIUM CHLORIDE 20 MEQ TABLET.ER PO (09:44)
--- NOTE | 2019-12-17 09:44 | PM.PNCARD ---
Progress Note: A&P Additional Plan Okay to discharge to home Will shift Lasix back to 40 mg p.o. q.12 hours Anticipate seeing her in follow-up in the office with Dr. Duke following TAVR or AVR Time Spent With Patient Time with patient: 15 - 25 minutes Subjective Date/time seen: 12/17/19 09:44 Interval history: Follow-up for: severe , CHF, CKD 3, HTN , acute on chronic CHF exacerbation. Date of service: 12/17/2019 Subjective: Patient is feeling relatively good today not short of breath hoping to be discharged. Oxygenation on room air is normal. Discussion had with again with patient and family regarding the plans going forward. I did speak with her surgeon yesterday at [facility] and now that her creatinine as essentially normalized they will arrange for CT of the aorta this week as an outpatient and then further consultation if she is a candidate for TAVR or AVR Exam Narrative: Exam Narrative: General: Well developed, alert and oriented x3. No apparent distress, mild discomfort due to back pain, lying flat in bed. Cooperative Head: atraumatic, normocephalic Eyes: conjunctivae unremarkable Ears/Nose: external inspection of ears and nose were grossly normal Mouth/Throat: oral mucosa pink and moist, lips are dry Neck: supple, normal range of motion, no jugular venous distention, , trachea midline. Cardiac: Irregular irregular rate and rhythm, normal S1-S2, grade II-III/ late systolic murmur, no clicks or rubs. Lungs: Crackles bilaterally in the bases. Able to complete a sentence Abdomen: Soft, nontender, nondistended, positive bowel sounds throughout. No appreciable hepatomegaly. Extremities: Trace bilateral LE edema, no clubbing or cyanosis. Extremities warm and well perfused. Skin: Warm and dry without ecchymoses, rashes, and/or petechiae. Healed median sternotomy scar Musculoskeletal: Muscle strength and tone intact throughout without obvious deformities. Vascular: Radial pulses 2+ bilaterally, dorsalis pedis pulses 2+ bilaterally, posterior tibialis pulses palpable bilaterally. Neurologic: Cranial nerves 2-12 grossly intact, examination grossly nonfocal Pscyhiatric: Mood calm and appropriate. Const: General: No confusion Orientation/consciousness: No confusion Neuro: General: No confusion Speech: No Abnormal speech present Objective Data Vital Signs Vital Signs: Vital Signs - 24 hr 12/16/19 10:09 12/16/19 11:51 12/16/19 12:00 Temperature 35.9 C L Pulse Rate 71 98 93 Respiratory Rate 16 Blood Pressure 125/90 Pulse Oximetry 97 12/16/19 14:15 12/16/19 16:00 12/16/19 18:15 Temperature 36.2 C L Pulse Rate 79 72 83 Respiratory Rate 16 Blood Pressure 127/83 Pulse Oximetry 95 12/16/19 19:35 12/16/19 20:00 12/16/19 21:09 Temperature 36.2 C L Pulse Rate 82 82 86 Respiratory Rate 18 18 Blood Pressure 114/65 Pulse Oximetry 95 95 12/16/19 22:00 12/17/19 00:00 12/17/19 00:03 Temperature 36.6 C Pulse Rate 74 74 Respiratory Rate 24 H Blood Pressure 112/74 Pulse Oximetry 84 L 95 12/17/19 02:00 12/17/19 04:00 12/17/19 06:00 Temperature 36.6 C Pulse Rate 78 78 81 Respiratory Rate 20 Blood Pressure 147/80 H Pulse Oximetry 95 12/17/19 08:00 Temperature 36.5 C Pulse Rate 89 Respiratory Rate 16 Blood Pressure 145/89 H Pulse Oximetry 99 Intake/Output Intake/Output: Intake & Output 12/14/19 12/15/19 12/16/19 12/17/19 23:59 23:59 23:59 23:59 Intake Total 1610 655 745 150 Output Total 1200 1100 850 450 Balance 410 -445 -105 -300 Meds/Results Medications: Active Medications Generic Name Dose Route Start Last Admin Trade Name Moon PRN Reason Stop Dose Admin Amiodarone HCl 200 mg 12/13/19 08:05 12/16/19 09:08 Pacerone PO 200 mg DAILY@0800 HEATH Administration Amlodipine Besylate 5 mg 12/14/19 09:00 12/16/19 09:08 Norvasc PO 5 mg DAILY HEATH Administration Apixa
[2019-12-17] MEDS: APIXABAN 2.5 MG TABLET PO (09:45)
[2019-12-17] MEDS: CLOPIDOGREL BISULFATE 75 MG TABLET PO (09:45)
[2019-12-17] MEDS: METOPROLOL TARTRATE 50 MG TAB 100 MG PO (09:45)
--- NOTE | 2019-12-17 10:53 | PM.DS ---
DS: Diagnosis Admitting Diagnosis Admitting Diagnosis: Acute on chronic systolic (congestive) heart failure Discharge Diagnosis (1) Congestive heart failure: Qualifiers: Heart failure chronicity: acute on chronic Heart failure type: diastolic Qualified Code(s): I50.33 - Acute on chronic diastolic (congestive) heart failure Code(s): I50.9 - Heart failure, unspecified Status: Chronic Assessment and Plan: Acute on chronic. Patient is clinically improving with diuresis. She is breathing okay today on RA. Some crackles noted on exam at bases today. Cr is 1.10 today, stable. Cardiology is following and appreciate recommendations. CXR showed mild pulmonary edema on repeat. Okay for discharge from Cardiology standpoint Discharge on home PO diuretics Patient to be discharged today (2) Aortic stenosis: Qualifiers: Cardiac valve disease etiology: etiology unspecified Qualified Code(s): I35.0 - Nonrheumatic aortic (valve) stenosis Code(s): I35.0 - Nonrheumatic aortic (valve) stenosis Status: Chronic Assessment and Plan: Patient is a DNR. She is followed by Dr. Duke. Cardiology consulted and appreciate recommendations Discussed with the patient and the family of the importance of further work up with patient as an outpatient as soon as possible. It appears patient is to have CT sometime within the next week as her Cr has improved this hospital stay. (3) Acute respiratory failure with hypoxia: Code(s): J96.01 - Acute respiratory failure with hypoxia Status: Acute Assessment and Plan: Patient was found to be hypoxic prior to arrival to the ER, satting 85% on RA; EMS placed patient on 2L NC. Likely secondary to CHF exacerbation. Showing improvement with diuresis. Repeat CXR earlier in stay shows mild pulmonary edema. Patient satting 90s on RA (4) Chronic kidney disease, stage 3: Code(s): N18.3 - Chronic kidney disease, stage 3 (moderate) Status: Acute Assessment and Plan: Patient's creatinine is 1.10 today; stable. Baseline typically between 1.2-1.4 on EMR. Patient to follow up with her surgeon for CT scan this next week Follow up with Nephrology (5) Hypothyroidism: Qualifiers: Hypothyroidism type: acquired Qualified Code(s): E03.9 - Hypothyroidism, unspecified Code(s): E03.9 - Hypothyroidism, unspecified Status: Chronic Assessment and Plan: Continue with the levothyroxine. (6) Hyperlipidemia: Qualifiers: Hyperlipidemia type: unspecified Qualified Code(s): E78.5 - Hyperlipidemia, unspecified Code(s): E78.5 - Hyperlipidemia, unspecified Status: Chronic Assessment and Plan: Continue with her simvastatin (7) Depression: Qualifiers: Depression Type: unspecified Qualified Code(s): F32.9 - Major depressive disorder, single episode, unspecified Code(s): F32.9 - Major depressive disorder, single episode, unspecified Status: Chronic Assessment and Plan: Continue with the venlafaxine (8) Anxiety: Code(s): F41.9 - Anxiety disorder, unspecified Status: Chronic Assessment and Plan: Continue with Valium. (9) PAF (paroxysmal atrial fibrillation): Code(s): I48.0 - Paroxysmal atrial fibrillation Status: Chronic Assessment and Plan: Patient agreeable to Eliquis now. She stopped taking roughly 1 week prior to presentation due to back pain continue eliquis on discharge. DS: Summary Hospital Course Reason for hospitalization: CHF exacerbation, acute respiratory failure with hyp
[2019-12-17] MEDS: FUROSEMIDE 40 MG TABLET PO (11:22)
== END 2019-12-17 11:50 | disposition home or self-care (01) | DRG 291 ==
LOC: ANHED 01:16 → ANHIMU 02:44
PROVIDERS: Physician Assistant; Admitting Provider Family Medicine; Emergency Provider General Practice; PCP Internal Medicine; Visit Provider Family Medicine
DX: I13.0 Hypertensive heart and chronic kidney disease with heart failure and stage 1 through stage 4 chronic kidney disease, or unspecified chronic kidney disease (principal); I50.33 Acute on chronic diastolic (congestive) heart failure; J96.01 Acute respiratory failure with hypoxia; I25.810 Atherosclerosis of coronary artery bypass graft(s) without angina pectoris; N18.3 Chronic kidney disease, stage 3 (moderate); I48.0 Paroxysmal atrial fibrillation; I35.0 Nonrheumatic aortic (valve) stenosis; E03.9 Hypothyroidism, unspecified; E78.5 Hyperlipidemia, unspecified; F32.9 Major depressive disorder, single episode, unspecified; F41.9 Anxiety disorder, unspecified; E87.6 Hypokalemia; I70.1 Atherosclerosis of renal artery; M81.0 Age-related osteoporosis without current pathological fracture; Z85.828 Personal history of other malignant neoplasm of skin; I25.2 Old myocardial infarction; Z95.5 Presence of coronary angioplasty implant and graft; Z95.1 Presence of aortocoronary bypass graft; Z90.49 Acquired absence of other specified parts of digestive tract
CPT/HCPCS: 36415; 36600; 71045; 71046; 80048; 82375; 82607; 82746; 82805; 83050; 83735; 83880; 84132; 84484; 85025; 85027; 85610; 85730; 93005; 96374; 99291; A9270; G0378; J1940

== ENCOUNTER 2019-12-19 08:02 | Inpatient (IN) | payer MEDICARE, SELFPAY ==
[2019-12-19] VITALS (32 sets, daily range): BP systolic 95–167; BP diastolic 62–90; PULSE 85–109; RESP 16–36; TEMP 36.4–37.3; O2SAT 75–100; BMI 24.3
--- NOTE | ~2019-12-19 | XR_ITS ---
EXAMINATION: XR chest 2V DATE: 12/23/2019 08:07 INDICATION: Pulmonary edema TECHNIQUE: PA and lateral views of the chest are obtained. COMPARISON: 12/22/2019 FINDINGS: The lungs are hyperinflated. Mild atelectasis of the lung bases has improved. There is no p leural effusion or pneumothorax. There is stable cardiomegaly. Median sternotomy wires and mediastina l surgical clips are seen, likely from prior coronary artery bypass grafting. Chronic burst fractures of the mid thoracic spine are unchanged. A stent is again noted in the right renal artery. IMPRESSION: 1. Mild atelectasis of the lung bases with improvement. 2. Stable cardiomegaly. Reviewed, dictated and finalized at location A. INUM POLISHER
--- NOTE | ~2019-12-19 | XR_ITS ---
EXAMINATION: XR chest 2V DATE: 12/25/2019 13:12 INDICATION: Shortness of breath. Cough. Shortness of failure. TECHNIQUE: Frontal and lateral views of the chest were obtained. COMPARISON: Chest 2 views 12/23/2019 FINDINGS: Calcified pulmonary nodules and calcified hilar lymph nodes are consistent with old granulo matous disease. There is mild atelectasis in the lower lung zones. No pleural effusion or pneumothora x. Cardiomegaly is noted. Median sternotomy wires and mediastinal surgical clips are seen, likely fro m prior coronary artery bypass grafting. Surgical clips in the right upper quadrant are likely from c holecystectomy. There are chronic burst fractures in thoracic spine. IMPRESSION: 1. Mild atelectasis in the lower lung zones. 2. Cardiomegaly. Reviewed, dictated and finalized at location A. IPLE SCLEROSIS NURSE
--- NOTE | ~2019-12-19 | XR_ITS ---
EXAMINATION: XR chest 1V portable DATE: 12/21/2019 06:07 INDICATION: Congestive heart failure. Acute respiratory failure with hypoxia. TECHNIQUE: A single frontal view of the chest was obtained. COMPARISON: Chest 2 views 12/19/2019, CT abdomen and pelvis 11/11/2019, chest CT 08/05/2016 FINDINGS: Calcified bilateral lung nodules and calcified hilar and mediastinal lymph nodes are consis tent with old granulomatous disease. There are mild airspace opacities in right mid and lower lung zo delmi. No pleural effusion or pneumothorax. Cardiomegaly is noted. Median sternotomy wires and mediasti nal surgical clips are seen, likely from prior coronary artery bypass grafting. Surgical clips in the right upper quadrant are likely from cholecystectomy. The brachiocephalic vessels are tortuous. IMPRESSION: 1. Worsened mild airspace opacities in right mid and lower lung zones, consistent with atelectasis ve rsus pneumonia. 2. Cardiomegaly. Reviewed, dictated and finalized at location A. NICAL CLERK IMPRESSION: 1. Worsened mild airspace opacities in right mid and lower lung zones, consiste nt with atelectasis versus pneumonia. 2. Cardiomegaly.
--- NOTE | ~2019-12-19 | XR_ITS ---
XR chest 2V DATE: 12/19/2019 09:14 INDICATION: Shortness of breath. Weakness. History of cardiac problems. TECHNIQUE: PA and lateral views COMPARISON: 12/15/2019 portable upright AP chest on 0532 hours FINDINGS: Status post sternotomy. Cardiomegaly. There is mild pulmonary vascular congestion and redistribution. No apparent pleural eff usion. No pneumothorax. There is mild infiltrate or atelectasis involving primarily the mid and lower lung zones. Aortic calcification. Probable right renal artery stent; recommend correlation with clinical history. Surgical clips, right upper quadrant, consistent with cholecystectomy. Diffuse osteopenia. There are 2 contiguous prominent fracture deformities with loss of height and anterior wedging at the mid to lower thoracic spine, including at least one probable burst fracture. IMPRESSION: Cardiomegaly, mild pulmonary vascular congestion and redistribution, consistent with mild congestive heart failure, stable or minimally increased since 12/15/2019 Mild patchy infiltrates in mid and lower lung zones Reviewed, dictated and finalized at location B. CULTURAL SCIENCE PROFESSOR IMPRESSION: Cardiomegaly, mild pulmonary vascular congestion and redistribution , consistent with mild congestive heart failure, stable or minimally increased since 12/15/2019 Mild patchy infiltrates in mid and lower lung zones
--- NOTE | ~2019-12-19 | XR_ITS ---
EXAMINATION: XR chest 2V EXAM DATE: 12/22/2019 12:45 INDICATION: Cough, CHF. TECHNIQUE: Frontal and lateral projections of the chest obtained and reviewed. Comparison is made to prior examination from 12/21/2019, 12/19/2019. FINDINGS: Some linear bilateral airspace disease consistent with atelectasis. There is cardiomegaly and pulmonary vascular congestion. Probable small unilateral pleural effusion based on the lateral im age. No confluent consolidation or pneumothorax. Sternotomy wires are present without findings to sug gest sternal dehiscence. There is aortic arterial sclerosis. The bones are osteopenic. There are bon y degenerative changes. 2 consecutive mid thoracic compression fractures causing kyphosis. IMPRESSION: 1. Cardiac, congestion. 2. Small pleural effusion. 3. Linear atelectasis. Reviewed, dictated and finalized at location A. ATOR OPERATOR
--- NOTE | 2019-12-19 08:33 | ECG_ITS ---
Measurements Intervals [place] Rate: 94 P: MD: 0 QRS: 17 QRSD: 140 T: 204 QT: 390 QTc: 488 Interpretive Statements ATRIAL FIBRILLATION LEFT BUNDLE BRANCH BLOCK ST-T WAVE ABNORMALITY IN LATERAL LEADS- CONSIDER ISCHEMIA BASELINE ARTIFACT- I, III, AVR, AVL, AVF, V1-V2, V4-V5 ABNORMAL ECG Electronically Signed On 12-19-2019 9:31:03 RECONSIGNMENT CLERK by Reinaldo Crowell D.O.
[2019-12-19 08:57] LABS: Basophils Absolute Auto 0.1 K/mm3 (0.0-0.1); Basophils Percent Auto 0.9 % (0.2-1.2); Eosinophils Absolute Auto 0.2 K/mm3 (0-0.3); Eosinophils Percent Auto 1.9 % (0-4.4); Hematocrit 41.7 % (37.0-47.0); Immature Granulocyte Absolute 0.03 K/mm3 (0.00-0.031); Immature Granulocyte Percent A 0.3 % (0-0.5); Lymphocytes Absolute Auto 0.56 K/mm3 (0.9-3.2); Lymphocytes Percent Auto 5.5 % (18.3-44.2); Mean Corpuscular HGB Conc 33.6 g/dl (32-36); Mean Corpuscular Hemoglobin 34.4 pg (26-34); Mean Corpuscular Volume 102.5 fl (80-100); Mean Platelet Volume 10.3 fl (7.4-10.4); Monocytes Absolute Auto 0.7 K/mm3 (0.1-0.6); Monocytes Percent Auto 6.4 % (2.6-8.5); Neutrophils Absolute Auto 8.7 K/mm3 (1.3-6.7); Platelet Count Result 289 k/mm3 (150-375); Red Blood Count 4.07 M/mm3 (4.2-5.4); Red Cell Distribution Width 15.4 % (11.5-14.5); White Blood Count 10.2 K/mm3 (4.5-10.0)
[2019-12-19 09:23] LABS: Blood Urea Nitrogen 20 mg/dL (7-17); Calcium 8.9 mg/dL (8.4-10.2); Carbon Dioxide 30 mmol/L (22-30); Chloride 88 mmol/L (98-107); Estimated CRCL calculation 23 ml/min; Estimated Glomerular Filt Rate 39; Glucose 206 mg/dL (65-105); Potassium 3.9 mmol/L (3.4-5.0); Sodium 134 mmol/L (137-145)
--- NOTE | 2019-12-19 09:29 | ED.SOB ---
HPI - SOB/Dyspnea General Chief Complaint: Shortness of Breath/Dyspnea Stated Complaint: sob Time Seen by Provider: 12/19/19 09:10 Source: patient Mode of arrival: wheelchair Limitations: no limitations History of Present Illness HPI Narrative: This is a 79 year old female that presents to the ER for shortness of breath since this morning. Reports she woke up in the middle of the night feeling short of breath and had a sharp chest pain. Reports she has since continued to be short of breath. Patient placed on NC on arrival to ED and reports improvement. Reports she is not on oxygen at home. Patient and daughter report she was just discharged from here 2 days ago for similar problems. She was scheduled to get imaging done at [facility] for a valve replacement. Currently denies any chest pain. Reports a productive cough that started today. Denies fever, congestion, rhinorrhea, sore throat, abdominal pain, or dysuria. Related Data Home Medications Medication Instructions Recorded Confirmed clopidogrel 75 mg PO DAILY 09/08/19 12/13/19 diazepam [Valium] 10 mg PO Q6H PRN 09/08/19 12/13/19 levothyroxine 100 mcg PO DAILY 09/08/19 12/13/19 potassium chloride 20 meq PO DAILY 09/08/19 12/13/19 simvastatin 20 mg PO HS 09/08/19 12/13/19 venlafaxine 75 mg PO QACLUNCH 09/08/19 12/13/19 Eliquis 2.5 mg PO Q12H 11/11/19 12/13/19 amiodarone [Pacerone] 200 mg PO DAILY@0800 11/11/19 12/13/19 amlodipine [Norvasc] 10 mg PO DAILY 11/11/19 12/13/19 furosemide 40 mg PO BID 11/11/19 12/13/19 metoprolol tartrate 100 mg PO Q12H 11/11/19 12/13/19 Avapro 300 mg PO 1300 12/13/19 12/13/19 oxycodone-acetaminophen [Percocet] 1 tablet PO Q6H PRN 12/13/19 12/13/19 Allergies Allergy/AdvReac Type Severity Reaction Status Date / Time No Known Allergies Allergy Verified 12/19/19 08:49 Review of Systems Review of Systems: Narrative: CONSTITUTIONAL: Denies fever ENT: Denies rhinorrhea, congestion, sore throat, or otalgia. CARDIOVASCULAR: Reports chest pain, and edema. RESPIRATORY: Reports cough and dyspnea. GASTROINTESTINAL: Denies abdominal pain, nausea, vomiting GENITOURINARY: Denies dysuria or hematuria. All systems reviewed & are unremarkable except as noted in HPI and below PMFSH Social History Social History Social History: We had a long discussion about DNR. The patient states she understands with a DNR is in at this time she wants to leave herself a DNR. She still continues to live at [facility]. 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 Smoking status: Never smoker Tobacco type: cigarettes Second hand tobacco smoke exposure: Yes Alcohol intake: never Substance use: never Substance use type: does not use Gender identity (if verbalized by the patient): Female Spiritual care concerns: No Agree to blood products: No Exam Narrative: Exam Narrative: GENERAL: Elderly, well-nourished, and in no acute distress. HEAD: Normocephalic, atraumatic. EYES: EOMI. ENT: Nares clear, no rhinorrhea or epistaxis. Mucous membranes moist. Oropharynx without tonsillar hypertrophy exudate or other lesions. Bilateral TMs pearly novoa non-bulging NECK: Supple. No adenopathy or masses. CHEST: No respiratory distress. Mild scattered wheezes. Rales in the bases bilaterally. No rhonchi HEART: Regular rate and rhythm. No murmur heard. Normal peripheral pulses. ABDOMEN: Soft, nontender, nondistended, normal active bowel sounds. EXTREMITIES: Normal range of motion. No edema. SKIN: Warm, dry, no rash. NEURO: No focal deficits. Alert and oriented x3. PSYCH: Normal mood and affect Course Vital Signs Vital signs: Vital Signs Temperature 98.7 F 12/19/19 08:05 Pulse Rate 104 H 12/19/19 08:05 Respiratory Rate 27 H 12/19/19 08:05 Blood Pressure 143/83 H 12/19/19 08:05 Pulse Oximetry 75 L 12/19/19 08:05 Temperature 97.6 F 12/19/19 10:40 Pulse Rate 88 0
[2019-12-19 11:05] LABS: NT Pro B Type Natriuretic Pept 7920 PG/ML (5-100); Troponin I < 0.012 ng/mL (0.000-0.034)
[2019-12-19] MEDS: ALBUTEROL SULFATE NEB 2.5 MG/0.5 ML INH 5 MG INHALATION (11:35)
[2019-12-19] MEDS: IPRATROPIUM BR 0.02% INH SOLN 0.5 MG/2.5 ML VIAL INHALATION (11:35)
--- NOTE | 2019-12-19 12:14 | PC.NURSE ---
Assuming care of pt from Anni VAZ. Pt wheeled to bathroom. Pt is A&Ox4. Pt lungs diminished with inspirator and expiratory wheezing throughout. Pt family at bedside. Pt aware of POC. Pt has call light in reach.
[2019-12-19] MEDS: OSELTAMIVIR PHOSPHATE 75 MG CAP PO (12:18)
[2019-12-19 13:07] LABS: Troponin I < 0.012 ng/mL (0.000-0.034)
--- NOTE | 2019-12-19 13:30 | PC.NURSE ---
This patient, Olivia Horn, was admitted to 3 [facility] Surg Room 313-01. Patient/family oriented to hospital policies and general routines including ID bracelet, bed and alarms, visiting hours, pain management, procedures, bathroom and other care routines, personal items, smoking policy, room service/diet, and visiting hours. Valuables list has been completed. Information on how to activate the Rapid Response Team has been discussed. Patient/Family are encouraged to report perceived risks to care and to ask questions if they do not understand what they are told or what they should do.
--- NOTE | 2019-12-19 16:28 | PM.IMHP ---
H&P: HPI History of Present Illness Chief complaint: Acute Respiratory Failure with Hypoxia/Influenza A Narrative: Olivia Horn is a 79 year old female Who was just discharged from here approximately 2 days ago. The patient has severe aortic stenosis and was going to be evaluated for a TAVR today. She is from [facility]. According to the daughter the patient had a little bit of nausea yesterday but was not short of breath and felt okay. The patient woke up around 445 this morning was very short of breath and also nauseated. She did not feel like she has the flu but was very short of breath. She could not get out of bed. She short of just lying in bed. She did not miss any of her medications at home last night. The daughter came over to evaluate the patient and she was unable to get out of bed and was tachypneic and was nauseated. Here the patient was checked for influenza a was found to be positive for influenza A. The patient does not have oxygen at home. Her oxygen level upon arrival was 75%. She was placed on 2 L per nasal cannula and her O2 saturations came up to 97%. She was afebrile and her pulse rate was 104 and then came down 88 she does have chronic AFib. The patient appears to be dry she has had a poor appetite today. Creatinine is 1.3. Troponin is negative. Chest x-ray was read by radiology as cardiomegaly, mild pulmonary vascular congestion and redistribution, consistent with mild congestive heart failure, stable or minimally increased since 12/15/2019. Patient was started on Tamiflu in the emergency room. Tylenol neb treatments. She was resting quietly when I entered the room. Her respirations were even and labored at that time. Patient was placed on droplet isolation for influenza A. She is being admitted for influenza a and hypoxia. Also she has acute renal failure as well. Date of service 12/19/2019 Review of Systems Review of Systems: All systems reviewed & are unremarkable except as noted in HPI and below Constitutional: Constitutional: Reports as per HPI and Reports no additional constitutional complaints Eyes: Eyes: Reports as per HPI and Reports no additional eye complaints ENT: Reports system reviewed and no additional complaints, except as documented and Reports Normal hearing present Cardiovascular: Cardiovascular: Reports no additional cardiovascular complaints Respiratory: Respiratory: Reports no additional respiratory complaints and Reports no additional respiratory complaints Gastrointestinal: Gastrointestinal: Reports as per HPI and Reports no additional gastrointestinal complaints Musculoskeletal: Musculoskeletal: Reports no additional musculoskeletal complaints Integumentary/Breasts: Skin/Breast: Reports system reviewed and no additional complaints, except as docu and Reports as per HPI Neurologic: Reports system reviewed and no additional complaints, except as documented, Reports as per HPI and Reports Normal hearing present Psychiatric: Psychiatric: Reports no additional psychiatric complaints and Reports as per HPI Endocrine: Endocrine: Reports no additional endocrine complaints Hematologic/Lymphatic: Hematologic/Lymphatic: Reports no additional hematologic/lymphatic complaints Allergic/Immunologic: Allergic/Immunologic: Reports no additional allergic/immunologic complaints [facility] Past Medical History Medical History Acute respiratory failure with hypoxia Anxiety Aortic stenosis Severe Atrial flutter Burst fracture of lumbar vertebra Chronic renal failure, stage 3 (moderate) Congestive heart failure Mixed Coronary artery disease Depression DVT prophylaxis Foot fracture, right History of basal cell carcinoma History of stent insertion of renal artery Hyperlipidemia Hypertension Hypokalemia Hypothyroidism Hypoxemia Myocardial infarction Osteoporosis PAF (paroxysmal atrial fibrillation) Cardi
[2019-12-19] MEDS: ONDANSETRON INJ 4 MG/2 ML VIAL IV PUSH (18:36)
[2019-12-19] MEDS: FUROSEMIDE 40 MG TABLET PO (18:36)
[2019-12-19] MEDS: METOPROLOL TARTRATE 50 MG TAB 100 MG PO (22:16)
[2019-12-19] MEDS: APIXABAN 2.5 MG TABLET PO (22:16)
[2019-12-19] MEDS: SIMVASTATIN 20 MG TABLET PO (22:17)
[2019-12-19] MEDS: DIAZEPAM 10 MG TABLET PO (22:19)
[2019-12-20] VITALS (15 sets, daily range): BP systolic 105–115; BP diastolic 53–68; PULSE 73–95; RESP 16–18; TEMP 36.8; O2SAT 93–97
[2019-12-20] MEDS: LEVOTHYROXINE SODIUM 100 MCG TABLET PO (05:44)
[2019-12-20 06:08] LABS: Basophils Percent Auto 0.3 % (0.2-1.2); Hematocrit 35.5 % (37.0-47.0); Hemoglobin 11.8 g/dL (12.0-15.0); Immature Granulocyte Absolute 0.03 K/mm3 (0.00-0.031); Immature Granulocyte Percent A 0.5 % (0-0.5); Lymphocytes Absolute Auto 0.41 K/mm3 (0.9-3.2); Lymphocytes Percent Auto 6.9 % (18.3-44.2); Mean Corpuscular HGB Conc 33.2 g/dl (32-36); Mean Corpuscular Volume 102.3 fl (80-100); Mean Platelet Volume 9.7 fl (7.4-10.4); Monocytes Absolute Auto 0.7 K/mm3 (0.1-0.6); Monocytes Percent Auto 11.4 % (2.6-8.5); Neutrophils Absolute Auto 4.8 K/mm3 (1.3-6.7); Neutrophils Percent Auto 80.9 % (45.5-73.1); Platelet Count Result 217 k/mm3 (150-375); Red Blood Count 3.47 M/mm3 (4.2-5.4)
[2019-12-20 06:13] LABS: Alanine Aminotransferase 82 U/L (4-35); Albumin Level 3.4 g/dL (3.5-5.1); Alkaline Phosphatase 91 U/L (38-126); Aspartate Amino Transferase 126 U/L (14-36); Bilirubin,Total 0.8 mg/dL (0.2-1.3); Blood Urea Nitrogen 14 mg/dL (7-17); Calcium 8.3 mg/dL (8.4-10.2); Carbon Dioxide 33 mmol/L (22-30); Chloride 91 mmol/L (98-107); Estimated CRCL calculation 27 ml/min; Estimated Glomerular Filt Rate 48; Glucose 108 mg/dL (65-105); Magnesium 1.7 mg/dL (1.6-2.3); Potassium 2.9 mmol/L (3.4-5.0); Sodium 134 mmol/L (137-145)
[2019-12-20] MEDS: CLOPIDOGREL BISULFATE 75 MG TABLET PO (08:35)
[2019-12-20] MEDS: AMIODARONE HCL 200 MG TABLET PO (08:35)
[2019-12-20] MEDS: AMLODIPINE BESYLATE 5 MG TABLET 10 MG PO (08:35)
[2019-12-20] MEDS: OSELTAMIVIR PHOSPHATE 30 MG CAPSULE PO (08:35)
[2019-12-20] MEDS: FUROSEMIDE 40 MG TABLET PO ×2 (08:37→18:01)
[2019-12-20] MEDS: METOPROLOL TARTRATE 50 MG TAB 100 MG PO ×2 (08:37→20:37)
[2019-12-20] MEDS: POTASSIUM CHLORIDE 10 MEQ TABLET.ER 20 MEQ PO (08:37)
[2019-12-20] MEDS: APIXABAN 2.5 MG TABLET PO ×2 (08:37→20:37)
[2019-12-20] MEDS: VENLAFAXINE HCL XR 75 MG CAP.ER.24H PO (12:25)
--- NOTE | 2019-12-20 13:51 | PM.IMPN ---
Progress Note: A&P Assessment and Plan (1) Influenza A: Code(s): J10.1 - Influenza due to other identified influenza virus with other respiratory manifestations Status: Acute Assessment and Plan: Pt is on tamiflu for influenza (2) Acute respiratory failure with hypoxia: Code(s): J96.01 - Acute respiratory failure with hypoxia Status: Acute Assessment and Plan: Patient is currently on oxygen. Added Iv rocephin and medrol. Patient has severe aortic stenosis and is awaiting to be evaluated for a TAVR. PT will need home oxygen evaluation on discharge. (3) PAF (paroxysmal atrial fibrillation): Code(s): I48.0 - Paroxysmal atrial fibrillation Status: Chronic Assessment and Plan: Continue with Eliquis and amiodarone and metoprolol. (4) Chronic kidney disease, stage 3: Code(s): N18.3 - Chronic kidney disease, stage 3 (moderate) Status: Acute Assessment and Plan: Pt has severe aortic stenosis continue to monitor BMP, consult cardiology tomorrow. (5) Hypertension: Qualifiers: Hypertension type: essential hypertension Qualified Code(s): I10 - Essential (primary) hypertension Code(s): I10 - Essential (primary) hypertension Status: Chronic Assessment and Plan: Chronic and stable (6) Congestive heart failure: Qualifiers: Heart failure type: unspecified Heart failure chronicity: chronic Qualified Code(s): I50.9 - Heart failure, unspecified Code(s): I50.9 - Heart failure, unspecified Status: Chronic Assessment and Plan: Patient is on Lasix and potassium. Careful not to over diuresis. She is also on metoprolol as well. (7) Hypothyroidism: Qualifiers: Hypothyroidism type: acquired Qualified Code(s): E03.9 - Hypothyroidism, unspecified Code(s): E03.9 - Hypothyroidism, unspecified Status: Chronic Assessment and Plan: Continue with levothyroxine. (8) Hyperlipidemia: Qualifiers: Hyperlipidemia type: unspecified Qualified Code(s): E78.5 - Hyperlipidemia, unspecified Code(s): E78.5 - Hyperlipidemia, unspecified Status: Chronic Assessment and Plan: Continue with simvastatin. (9) Depression: Qualifiers: Depression Type: unspecified Qualified Code(s): F32.9 - Major depressive disorder, single episode, unspecified Code(s): F32.9 - Major depressive disorder, single episode, unspecified Status: Chronic Assessment and Plan: Continue on a venlafaxine (10) Anxiety: Code(s): F41.9 - Anxiety disorder, unspecified Status: Chronic Assessment and Plan: Venlafaxine Subjective Date/time seen: 12/20/19 13:51 Interval history: 79 year old female Who was just discharged from here approximately 2 days ago. The patient has severe aortic stenosis and was going to be evaluated for a TAVR today. Cxr shows pulmonary edema and infiltrates. Pt is flu positive. Pt has not been eating much her potassium is low. Review of Systems Review of Systems: All systems reviewed & are unremarkable except as noted in HPI and below Respiratory: Respiratory: Reports dyspnea Gastrointestinal: Gastrointestinal: Reports no additional gastrointestinal complaints Musculoskeletal: Musculoskeletal: Reports myalgias Neurologic: Reports system reviewed and no additional complaints, except as documented Exam Chest: Chest palpation & inspection: normal inspection of the chest Resp: Effort & Inspection: normal respiratory effort Auscultation: clear to auscultation bilaterally Percussion: percussion normal Cardio: Palpation: normal PMI Rate: regular rate Rhythm: abnormal rhythm (Atrial fibrillation) regularly irregular Heart sounds: S1 normal heart sound present and S2 normal heart sound present Peripheral pulses: Peripheral pulses 2+ throughout Extrem: General: normal to inspection Right upper extremity: no
[2019-12-20] MEDS: IRBESARTAN 150 MG TABLET 300 MG PO (14:50)
[2019-12-20] MEDS: methylPREDNISolone (MEDROL) DOSEPACK 4 MG TABLETS PO ×4 (15:33→23:51)
[2019-12-20] MEDS: POTASSIUM CHLORIDE 20 MEQ TABLET 40 MEQ PO (15:34)
--- NOTE | 2019-12-20 18:01 | WPDCN ---
Assessment and Plan Assessment and plan (1) Influenza A: Code(s): J10.1 - Influenza due to other identified influenza virus with other respiratory manifestations Status: Acute Assessment and Plan: Patient looks a lot better than I expected, no respiratory distress, doing fine on 1 L of O2. Treatment per hospitalist (2) Aortic stenosis: Qualifiers: Cardiac valve disease etiology: etiology unspecified Qualified Code(s): I35.0 - Nonrheumatic aortic (valve) stenosis Code(s): I35.0 - Nonrheumatic aortic (valve) stenosis Status: Chronic Assessment and Plan: Severe aortic stenosis being evaluated for TAVR by Dr. Sanchez at [facility]. When discharged, we will arrange for a follow-up CTA of iliacs and aorta at [facility] with Dr. Sanchez to evaluate her candidacy for TAVR. (3) Chronic diastolic heart failure: Code(s): I50.32 - Chronic diastolic (congestive) heart failure Status: Acute Assessment and Plan: Patient looks stable despite her influenza with mild chronic CHF. Stable on furosemide 40 mg b.i.d.. (4) Persistent atrial fibrillation: Code(s): I48.19 - Other persistent atrial fibrillation Status: Acute Assessment and Plan: Heart rate is controlled, with metoprolol 100 mg b.i.d. and amiodarone 200 mg daily. Anticoagulated with Eliquis 2.5 mg b.i.d. (5) Chronic kidney disease, stage 3: Code(s): N18.3 - Chronic kidney disease, stage 3 (moderate) Status: Acute Assessment and Plan: Renal function is stable. Follow I's and O's, fluid balance, BMPs etcetera (6) Coronary artery disease: Qualifiers: Coronary Disease-Associated Artery/Lesion type: bypass graft [place] vs. transplanted heart: [place] heart Associated angina: without angina Qualified Code(s): I25.810 - Atherosclerosis of coronary artery bypass graft(s) without angina pectoris Code(s): I25.10 - Atherosclerotic heart disease of [place] coronary artery without angina pectoris Status: Acute Assessment and Plan: History of CAD and CABG, stable. Taking clopidogrel. HPI Data of Consult Date/Time: 12/20/19 18:01 Requesting Physician: Parker Barakat MD Primary Care Provider: Kyle Bojorquez, Consult Narrative Narrative: Date of service: 12/20/2019 Olivia Horn is a 79 year old female whom we are asked to see by Dr. Henao for advice and opinion regarding her aortic stenosis and chronic CHF in consultation. Mrs. Horn is followed by Dr. Duke has had recurrent admissions for CHF secondary to severe bicuspid aortic stenosis. She is being evaluated for TAVR by Dr. Sanchez accessory [facility]. She also has persistent atrial fibrillation and chronic kidney disease. 09/08/2020-09/19/2020 admitted for heart failure, had cardioversion for atrial flutter which later recurred 11/11/2019-11/17/2019 admitted for heart failure 12/13/2019-12/17/2019 admitted for heart failure 12/17/2019 admitted for influenza. The patient was feeling well on discharge, December 17 put on December 19 she woke up feeling very short of breath and weak. She was tachypneic and nauseated. She was supposed to get a CT angiogram of her aorta and iliacs through Dr. Canas at [facility] but instead she was brought to the emergency room and was positive for influenza a. She was hypoxic and started on oxygen as well as Tamiflu. She has been given Tylenol and nebulizer treatments. She actually has done fairly well, with a reduction of her O2 needs, just now on 1 L. Her eyes nose had been fairly well-balanced. There is no edema. She is feeling better today had a lot less tired. Her breathing has improved. Cardiac testing:
[2019-12-20] MEDS: POTASSIUM CHLORIDE 20 MEQ TABLET.ER 40 MEQ PO (18:02)
[2019-12-20] MEDS: SIMVASTATIN 20 MG TABLET PO (20:37)
--- NOTE | 2019-12-20 20:38 | PC.NURSE ---
1700 dose of Medrol Dosepak given now since the medication wasn't sent from pharmacy on time.
[2019-12-20] MEDS: DIAZEPAM 10 MG TABLET PO (22:08)
--- NOTE | 2019-12-20 23:50 | PC.NURSE ---
2100 dose of Medrol Dosepak due to being behind on schedule from the medication not being available earlier.
[2019-12-21] VITALS (12 sets, daily range): BP systolic 115–126; BP diastolic 67–84; PULSE 71–100; RESP 14–18; TEMP 36.2–36.8; O2SAT 98–100
[2019-12-21] MEDS: LEVOTHYROXINE SODIUM 100 MCG TABLET PO (06:23)
[2019-12-21] MEDS: methylPREDNISolone (MEDROL) DOSEPACK 4 MG TABLETS PO ×4 (06:23→21:42)
[2019-12-21 06:40] LABS: Hematocrit 38.3 % (37.0-47.0); Hemoglobin 12.4 g/dL (12.0-15.0); Mean Corpuscular HGB Conc 32.4 g/dl (32-36); Mean Corpuscular Hemoglobin 33.8 pg (26-34); Mean Corpuscular Volume 104.4 fl (80-100); Mean Platelet Volume 9.9 fl (7.4-10.4); Platelet Count Result 248 k/mm3 (150-375); Red Blood Count 3.67 M/mm3 (4.2-5.4); Red Cell Distribution Width 14.9 % (11.5-14.5); White Blood Count 3.7 K/mm3 (4.5-10.0)
[2019-12-21 06:47] LABS: Blood Urea Nitrogen 17 mg/dL (7-17); Calcium 8.5 mg/dL (8.4-10.2); Carbon Dioxide 35 mmol/L (22-30); Chloride 93 mmol/L (98-107); Estimated CRCL calculation 29 ml/min; Estimated Glomerular Filt Rate 53; Glucose 193 mg/dL (65-105); Potassium 3.9 mmol/L (3.4-5.0); Sodium 137 mmol/L (137-145)
[2019-12-21] MEDS: POTASSIUM CHLORIDE 20 MEQ TABLET.ER 40 MEQ PO ×2 (08:51→17:06)
[2019-12-21] MEDS: AMIODARONE HCL 200 MG TABLET PO (08:52)
[2019-12-21] MEDS: FUROSEMIDE 40 MG TABLET PO ×2 (08:53→17:05)
[2019-12-21] MEDS: METOPROLOL TARTRATE 50 MG TAB 100 MG PO ×2 (08:53→21:42)
[2019-12-21] MEDS: APIXABAN 2.5 MG TABLET PO ×2 (08:54→21:42)
[2019-12-21] MEDS: OSELTAMIVIR PHOSPHATE 30 MG CAPSULE PO (08:54)
[2019-12-21] MEDS: CLOPIDOGREL BISULFATE 75 MG TABLET PO (08:54)
[2019-12-21] MEDS: AMLODIPINE BESYLATE 5 MG TABLET 10 MG PO (08:54)
--- NOTE | 2019-12-21 12:34 | PM.IMPN ---
Progress Note: A&P Assessment and Plan (1) Influenza A: Code(s): J10.1 - Influenza due to other identified influenza virus with other respiratory manifestations Status: Acute Assessment and Plan: Pt is on tamiflu for influenza (2) Acute respiratory failure with hypoxia: Code(s): J96.01 - Acute respiratory failure with hypoxia Status: Acute Assessment and Plan: Patient is currently on oxygen. Added Iv rocephin and medrol. Patient has severe aortic stenosis and is awaiting to be evaluated for a TAVR. PT will need home oxygen evaluation on discharge. Add iv zithromax, CXR reveiwed today. Bc negative to date. (3) PAF (paroxysmal atrial fibrillation): Code(s): I48.0 - Paroxysmal atrial fibrillation Status: Chronic Assessment and Plan: Continue with Eliquis and amiodarone and metoprolol. (4) Chronic kidney disease, stage 3: Code(s): N18.3 - Chronic kidney disease, stage 3 (moderate) Status: Acute Assessment and Plan: Pt has severe aortic stenosis continue to monitor BMP, consult cardiology tomorrow. (5) Hypertension: Qualifiers: Hypertension type: essential hypertension Qualified Code(s): I10 - Essential (primary) hypertension Code(s): I10 - Essential (primary) hypertension Status: Chronic Assessment and Plan: Chronic and stable (6) Congestive heart failure: Qualifiers: Heart failure type: unspecified Heart failure chronicity: chronic Qualified Code(s): I50.9 - Heart failure, unspecified Code(s): I50.9 - Heart failure, unspecified Status: Chronic Assessment and Plan: Patient is on Lasix and potassium. Careful not to over diuresis. She is also on metoprolol as well. Pt is awaiting a TAVR, seen by cardiology today. (7) Hypothyroidism: Qualifiers: Hypothyroidism type: acquired Qualified Code(s): E03.9 - Hypothyroidism, unspecified Code(s): E03.9 - Hypothyroidism, unspecified Status: Chronic Assessment and Plan: Continue with levothyroxine. (8) Hyperlipidemia: Qualifiers: Hyperlipidemia type: unspecified Qualified Code(s): E78.5 - Hyperlipidemia, unspecified Code(s): E78.5 - Hyperlipidemia, unspecified Status: Chronic Assessment and Plan: Continue with simvastatin. (9) Depression: Qualifiers: Depression Type: unspecified Qualified Code(s): F32.9 - Major depressive disorder, single episode, unspecified Code(s): F32.9 - Major depressive disorder, single episode, unspecified Status: Chronic Assessment and Plan: Continue on a venlafaxine (10) Anxiety: Code(s): F41.9 - Anxiety disorder, unspecified Status: Chronic Assessment and Plan: Venlafaxine Subjective Date/time seen: 12/21/19 12:34 Interval history: 79 year old female Who was just discharged from here approximately 2 days ago. The patient has severe aortic stenosis and was going to be evaluated for a TAVR today. Cxr shows pulmonary edema and infiltrates. Pt is flu positive. Pt looks better today more energy , Cxr shows pneumonia and cardiomegaly. Pt seen by cardiology. Review of Systems Review of Systems: All systems reviewed & are unremarkable except as noted in HPI and below Constitutional: Constitutional: Reports as per HPI and Reports lethargy Eyes: Eyes: Reports as per HPI and Reports no additional eye complaints ENT: Reports system reviewed and no additional complaints, except as documented and Reports Normal hearing present Cardiovascular: Cardiovascular: Reports no additional cardiovascular complaints and Reports dyspnea Respiratory: Respiratory: Reports dyspnea and Reports wheezing Gastrointestinal: Gastrointestinal: Reports as per HPI and Reports no additional gastrointestinal complaints Musculoskeletal: Musculoskeletal: Reports no additional musculoskeletal complaints and Reports myalgi
[2019-12-21] MEDS: VENLAFAXINE HCL XR 75 MG CAP.ER.24H PO (12:55)
[2019-12-21] MEDS: IRBESARTAN 150 MG TABLET 300 MG PO (13:49)
--- NOTE | 2019-12-21 14:08 | PM.PNCARD ---
Progress Note: A&P Assessment and Plan (1) Influenza A: Code(s): J10.1 - Influenza due to other identified influenza virus with other respiratory manifestations Status: Acute Assessment and Plan: Patient looks a lot better than I expected, no respiratory distress, doing fine on 1 L of O2 and occasionally on. Treatment per hospitalist (2) Chronic diastolic heart failure: Code(s): I50.32 - Chronic diastolic (congestive) heart failure Status: Acute Assessment and Plan: Patient looks pretty good despite her influenza with mild chronic CHF. Has been on home dose of furosemide 40 mg b.i.d. However, has some JVD, rales (chronic vs flu vs CHF?), worsening infiltrates, more LE edema and is a bit more tachy now (though just got back fr [place]). Will give an extra 20 mg Lasix today X1. BMP and BNP tmr. (3) Aortic stenosis: Qualifiers: Cardiac valve disease etiology: etiology unspecified Qualified Code(s): I35.0 - Nonrheumatic aortic (valve) stenosis Code(s): I35.0 - Nonrheumatic aortic (valve) stenosis Status: Chronic Assessment and Plan: Severe aortic stenosis being evaluated for TAVR by Dr. Sanchez at [facility]. When discharged, we will arrange for a follow-up CTA of iliacs and aorta at [facility] with Dr. Sanchez to evaluate her candidacy for TAVR. ___ (4) Persistent atrial fibrillation: Code(s): I48.19 - Other persistent atrial fibrillation Status: Acute Assessment and Plan: Heart rate is controlled, with metoprolol 100 mg b.i.d. and amiodarone 200 mg daily. Anticoagulated with Eliquis 2.5 mg b.i.d. (5) Chronic kidney disease, stage 3: Code(s): N18.3 - Chronic kidney disease, stage 3 (moderate) Status: Acute Assessment and Plan: CKD stage 2-3. Renal function is stable. Follow I's and O's, fluid balance, BMPs etcetera Subjective Date/time seen: 12/21/19 14:08 Interval history: Follow-up CHF, aortic stenosis. Admitted with SOB and influenza. Date of service: 12/21/2019: Feels pretty good, walked to [facility] and back w/o much breathlessness. Some loose stool. No dizziness, CP. Son and [id number] at bedside. Chest x-ray showed worsening left middle and upper lobe infiltrates. Small right effusion unchanged. Personally reviewed. Review of Systems Constitutional: Constitutional: Denies difficulty sleeping and Denies fatigue ENT: Denies epistaxis and Denies nasal discharge Cardiovascular: Cardiovascular: Denies chest pain, Reports leg edema, Denies lightheadedness and Denies palpitations Respiratory: Respiratory: Reports cough, Denies dyspnea and Denies dyspnea on exertion Gastrointestinal: Gastrointestinal: Denies abdominal pain and Reports diarrhea Genitourinary: Genitourinary: Denies hematuria Musculoskeletal: Musculoskeletal: Denies back pain Integumentary/Breasts: Skin/Breast: Denies rash Neurologic: Denies confusion Psychiatric: Psychiatric: Denies confusion Exam Const: General: comfortable and no acute distress HENMT: Mouth: Yes moist mucous membranes Eyes: EOM: EOMs intact bilaterally Neck: Neck: supple and No no JVD (Slight JVD) Resp: Auscultation: rales (RAles 1/2 up on left, base on right) Cardio: Rate: tachycardic Rhythm: abnormal rhythm regularly irregular Heart sounds: Murmur heart sound present GI: Auscultation: normal bowel sounds Skin: General skin exam: normal color Rashes: no rashes noted Neuro: General: gait normal Speech: normal speech Extrem: Right lower extremity: edema (trace to mild ) Left lower extremity: edema (trace to mild) and no joint enlargement Psych: Mental Status: mental status grossly normal Affect: normal affect Objective Data Vital Signs Vital Signs: Vital Signs - 24 hr
[2019-12-21] MEDS: DOXYCYCLINE HYCLATE 100 MG TABLET PO ×2 (14:26→21:42)
[2019-12-21] MEDS: FUROSEMIDE 20 MG TABLET PO (17:05)
[2019-12-21] MEDS: SIMVASTATIN 20 MG TABLET PO (21:42)
[2019-12-22] VITALS (13 sets, daily range): BP systolic 109–129; BP diastolic 69–81; PULSE 70–107; RESP 14–18; TEMP 36.4; O2SAT 96–100
[2019-12-22] MEDS: LEVOTHYROXINE SODIUM 100 MCG TABLET PO (06:25)
[2019-12-22] MEDS: methylPREDNISolone (MEDROL) DOSEPACK 4 MG TABLETS PO ×4 (06:29→20:31)
[2019-12-22 06:31] LABS: Blood Urea Nitrogen 21 mg/dL (7-17); Calcium 8.9 mg/dL (8.4-10.2); Carbon Dioxide 35 mmol/L (22-30); Chloride 92 mmol/L (98-107); Estimated CRCL calculation 27 ml/min; Estimated Glomerular Filt Rate 48; Glucose 185 mg/dL (65-105); Potassium 4.4 mmol/L (3.4-5.0); Sodium 138 mmol/L (137-145)
[2019-12-22 06:40] LABS: NT Pro B Type Natriuretic Pept 9990 PG/ML (5-100)
[2019-12-22] MEDS: FUROSEMIDE 40 MG TABLET PO ×2 (08:18→17:09)
[2019-12-22] MEDS: CLOPIDOGREL BISULFATE 75 MG TABLET PO (08:18)
[2019-12-22] MEDS: DOXYCYCLINE HYCLATE 100 MG TABLET PO ×2 (08:18→20:30)
[2019-12-22] MEDS: AMLODIPINE BESYLATE 5 MG TABLET 10 MG PO (08:19)
[2019-12-22] MEDS: AMIODARONE HCL 200 MG TABLET PO (08:19)
[2019-12-22] MEDS: OSELTAMIVIR PHOSPHATE 30 MG CAPSULE PO (08:19)
[2019-12-22] MEDS: POTASSIUM CHLORIDE 20 MEQ TABLET.ER 40 MEQ PO ×2 (08:19→17:09)
[2019-12-22] MEDS: METOPROLOL TARTRATE 50 MG TAB 100 MG PO ×2 (08:20→20:31)
[2019-12-22] MEDS: APIXABAN 2.5 MG TABLET PO ×2 (08:21→20:30)
--- NOTE | 2019-12-22 11:21 | WPDCDIQUERY2 ---
CDI Query Clarification Request - Cxr shows pulmonary edema and infiltrates and Cxr shows pneumonia and cardiomegaly documented by Dr Earlene Dumont IV and Doxycycline PO ordered -Coders cannot code CXR findings Please clarify on problem list, diagnosis/reason for antibiotics being given. <Abbie Strickland RN - Last Filed: 12/22/19 11:25>
[2019-12-22] MEDS: DIAZEPAM 10 MG TABLET PO ×2 (11:51→20:39)
[2019-12-22] MEDS: FUROSEMIDE INJ 40 MG/4 ML VIAL IV PUSH (12:47)
[2019-12-22] MEDS: VENLAFAXINE HCL XR 75 MG CAP.ER.24H PO (12:49)
--- NOTE | 2019-12-22 14:55 | WPDGIPROGNO ---
Progress Note: A&P Assessment and Plan (1) Influenza A: Code(s): J10.1 - Influenza due to other identified influenza virus with other respiratory manifestations Status: Acute Assessment and Plan: Pt is on tamiflu for influenza -continue use of oxygen (2) Acute respiratory failure with hypoxia: Code(s): J96.01 - Acute respiratory failure with hypoxia Status: Acute Assessment and Plan: Secondary to pneumonia -Patient is currently on oxygen. Will attempt to titrate off Continue iv rocephin and medrol and azithromycin -Patient has severe aortic stenosis and is awaiting to be evaluated for a TAVR. -PT will need home oxygen evaluation on discharge. - - Bc negative to date. (3) PAF (paroxysmal atrial fibrillation): Code(s): I48.0 - Paroxysmal atrial fibrillation Status: Chronic Assessment and Plan: Continue with Eliquis and amiodarone and metoprolol. (4) Chronic kidney disease, stage 3: Code(s): N18.3 - Chronic kidney disease, stage 3 (moderate) Status: Acute Assessment and Plan: Pt has severe aortic stenosis continue to monitor BMP, consult cardiology tomorrow. (5) Hypertension: Qualifiers: Hypertension type: essential hypertension Qualified Code(s): I10 - Essential (primary) hypertension Code(s): I10 - Essential (primary) hypertension Status: Chronic Assessment and Plan: Chronic and stable (6) Congestive heart failure: Qualifiers: Heart failure type: unspecified Heart failure chronicity: chronic Qualified Code(s): I50.9 - Heart failure, unspecified Code(s): I50.9 - Heart failure, unspecified Status: Chronic Assessment and Plan: Patient is on Lasix and potassium. Patient BNP and 9000 Careful not to over diuresis. She is also on metoprolol as well. Pt is awaiting a TAVR, seen by cardiology today. (7) Hypothyroidism: Qualifiers: Hypothyroidism type: acquired Qualified Code(s): E03.9 - Hypothyroidism, unspecified Code(s): E03.9 - Hypothyroidism, unspecified Status: Chronic Assessment and Plan: Stable Continue with levothyroxine. (8) Hyperlipidemia: Qualifiers: Hyperlipidemia type: unspecified Qualified Code(s): E78.5 - Hyperlipidemia, unspecified Code(s): E78.5 - Hyperlipidemia, unspecified Status: Chronic Assessment and Plan: Stable Continue with simvastatin. (9) Depression: Qualifiers: Depression Type: unspecified Qualified Code(s): F32.9 - Major depressive disorder, single episode, unspecified Code(s): F32.9 - Major depressive disorder, single episode, unspecified Status: Chronic Assessment and Plan: Stable Continue on a venlafaxine (10) Anxiety: Code(s): F41.9 - Anxiety disorder, unspecified Status: Chronic Assessment and Plan: Stable Venlafaxine (11) Pneumonia: Code(s): J18.9 - Pneumonia, unspecified organism Status: Acute Assessment and Plan: Secondary to pneumonia -Patient is currently on oxygen. Will attempt to titrate off Continue iv rocephin and medrol and azithromycin -Patient has severe aortic stenosis and is awaiting to be evaluated for a TAVR. -PT will need home oxygen evaluation on discharge. - - Bc negative to date. Subjective Date/time seen: 12/22/19 14:55 Follow-up CHF, aortic stenosis. Admitted with SOB and influenza. Patient does not appear to be any distress today. She denies any shortness of breath. She did not sleep well overnight due to the environment noted that she takes trazodone daily HS. Is asking for the oxygen to removed. I informed patient that we would have to titrate the oxygen off and that she would need a home O2 evaluation. Review of Systems Review of Systems: All systems reviewed & are unremarkable except as noted in HPI and below Constitutional: Constitutional: Reports a
[2019-12-22] MEDS: IRBESARTAN 150 MG TABLET 300 MG PO (15:32)
[2019-12-22] MEDS: SIMVASTATIN 20 MG TABLET PO (20:30)
[2019-12-23] VITALS (12 sets, daily range): BP systolic 125–130; BP diastolic 69–85; PULSE 65–105; RESP 18; TEMP 36.6–36.9; O2SAT 94–100
[2019-12-23] MEDS: methylPREDNISolone (MEDROL) DOSEPACK 4 MG TABLETS PO ×3 (05:56→21:28)
[2019-12-23] MEDS: LEVOTHYROXINE SODIUM 100 MCG TABLET PO (05:56)
[2019-12-23 06:52] LABS: Hematocrit 45.3 % (37.0-47.0); Hemoglobin 14.3 g/dL (12.0-15.0); Mean Corpuscular HGB Conc 31.6 g/dl (32-36); Mean Corpuscular Volume 104.6 fl (80-100); Platelet Count Result 349 k/mm3 (150-375); Red Blood Count 4.33 M/mm3 (4.2-5.4); Red Cell Distribution Width 14.5 % (11.5-14.5); White Blood Count 9.9 K/mm3 (4.5-10.0)
[2019-12-23 07:09] LABS: Blood Urea Nitrogen 29 mg/dL (7-17); Calcium 9.4 mg/dL (8.4-10.2); Carbon Dioxide 34 mmol/L (22-30); Chloride 89 mmol/L (98-107); Estimated CRCL calculation 23 ml/min; Estimated Glomerular Filt Rate 39; Glucose 176 mg/dL (65-105); Potassium 4.5 mmol/L (3.4-5.0); Sodium 137 mmol/L (137-145)
--- NOTE | 2019-12-23 07:09 | PC.NURSE ---
Patient is refusing the bed alarm. Patient is a high fall risk. Education on safety was provided and importance explained. Patient is still refusing bed alarm. Patient is being encouraged to use the call light and more frequent checks.
[2019-12-23 07:17] LABS: NT Pro B Type Natriuretic Pept 7730 PG/ML (5-100)
--- NOTE | 2019-12-23 09:29 | PM.IMPN ---
Progress Note: A&P Assessment and Plan (1) Influenza A: Code(s): J10.1 - Influenza due to other identified influenza virus with other respiratory manifestations Status: Acute Assessment and Plan: Pt is on tamiflu for influenza -continue use of oxygen (2) Acute respiratory failure with hypoxia: Code(s): J96.01 - Acute respiratory failure with hypoxia Status: Acute Assessment and Plan: Secondary to pneumonia -Patient is currently on oxygen. Will attempt to titrate off Continue iv rocephin and medrol and azithromycin -Patient has severe aortic stenosis and is awaiting to be evaluated for a TAVR. -PT will need home oxygen evaluation on discharge. - - Bc negative to date. (3) PAF (paroxysmal atrial fibrillation): Code(s): I48.0 - Paroxysmal atrial fibrillation Status: Chronic Assessment and Plan: Continue with Eliquis and amiodarone and metoprolol. (4) Chronic kidney disease, stage 3: Code(s): N18.3 - Chronic kidney disease, stage 3 (moderate) Status: Acute Assessment and Plan: Pt has severe aortic stenosis continue to monitor BMP, -cardiology consulted-Severe aortic stenosis being evaluated for TAVR by Dr. Sanchez at [facility]. When discharged, we will arrange for a follow-up CTA of iliacs and aorta at [facility] with Dr. Sanchez to evaluate her candidacy for TAVR. -renal function worsening to use diuretics. Will monitor closely. -BMP in the am (5) Hypertension: Qualifiers: Hypertension type: essential hypertension Qualified Code(s): I10 - Essential (primary) hypertension Code(s): I10 - Essential (primary) hypertension Status: Chronic Assessment and Plan: Chronic and stable (6) Congestive heart failure: Qualifiers: Heart failure chronicity: chronic Heart failure type: unspecified Qualified Code(s): I50.9 - Heart failure, unspecified Code(s): I50.9 - Heart failure, unspecified Status: Chronic Assessment and Plan: Patient is on Lasix and potassium. Patient BNP and 9000 now [id number] She is also on metoprolol as well. (7) Hypothyroidism: Qualifiers: Hypothyroidism type: acquired Qualified Code(s): E03.9 - Hypothyroidism, unspecified Code(s): E03.9 - Hypothyroidism, unspecified Status: Chronic Assessment and Plan: Stable Continue with levothyroxine. (8) Hyperlipidemia: Qualifiers: Hyperlipidemia type: unspecified Qualified Code(s): E78.5 - Hyperlipidemia, unspecified Code(s): E78.5 - Hyperlipidemia, unspecified Status: Chronic Assessment and Plan: Stable Continue with simvastatin. (9) Depression: Qualifiers: Depression Type: unspecified Qualified Code(s): F32.9 - Major depressive disorder, single episode, unspecified Code(s): F32.9 - Major depressive disorder, single episode, unspecified Status: Chronic Assessment and Plan: Stable Continue on a venlafaxine (10) Anxiety: Code(s): F41.9 - Anxiety disorder, unspecified Status: Chronic Assessment and Plan: Stable Venlafaxine (11) Pneumonia: Code(s): J18.9 - Pneumonia, unspecified organism Status: Acute Assessment and Plan: -Patient is currently on oxygen. Will attempt to titrate off Continue iv rocephin and medrol and azithromycin -Patient has severe aortic stenosis and is awaiting to be evaluated for a TAVR. -PT will need home oxygen evaluation on discharge. - - Bc negative to date. Subjective Date/time seen: 12/23/19 09:29 Patient in bed with family member at bedside. She appear to be better today and have no complains. Patient able to tolerate all meals , slept well and ambulate at baseline. Patient denies SOB, CP, palpitation, extremity numbness, lightheadness, dizziness, constipation, diarrhea, or chills or fever. Patient agree that they are ready for discharge
[2019-12-23] MEDS: METOPROLOL TARTRATE 50 MG TAB 100 MG PO ×2 (10:27→21:27)
[2019-12-23] MEDS: POTASSIUM CHLORIDE 20 MEQ TABLET.ER 40 MEQ PO ×2 (10:30→18:27)
[2019-12-23] MEDS: AMLODIPINE BESYLATE 5 MG TABLET 10 MG PO (10:30)
[2019-12-23] MEDS: AMIODARONE HCL 200 MG TABLET PO (10:30)
[2019-12-23] MEDS: OSELTAMIVIR PHOSPHATE 30 MG CAPSULE PO (10:30)
[2019-12-23] MEDS: FUROSEMIDE 40 MG TABLET PO ×2 (10:31→18:27)
[2019-12-23] MEDS: CLOPIDOGREL BISULFATE 75 MG TABLET PO (10:31)
[2019-12-23] MEDS: DOXYCYCLINE HYCLATE 100 MG TABLET PO ×2 (10:31→21:28)
[2019-12-23] MEDS: APIXABAN 2.5 MG TABLET PO ×2 (10:31→21:28)
[2019-12-23] MEDS: VENLAFAXINE HCL XR 75 MG CAP.ER.24H PO (15:01)
[2019-12-23] MEDS: IRBESARTAN 150 MG TABLET 300 MG PO (15:01)
--- NOTE | 2019-12-23 16:12 | PC.NURSE ---
At 1500 pt and family member (granddaughter) upset that pt had bed alarm on. While she has refused in the past to have her bed alarm, she wasambulating this AM and found to be very wobbly. She told the aide she felt drunk . When pt came back from toilet at 1500, I explained our concern for her and how we wanted to keep her safe. She said she was only joking, but I playfully reminded her we just wanted to keep her safe. She smiled and said okay. Bed alarm on at this time
[2019-12-23] MEDS: SIMVASTATIN 20 MG TABLET PO (21:27)
[2019-12-23] MEDS: DIAZEPAM 10 MG TABLET PO (23:42)
[2019-12-24] VITALS (14 sets, daily range): BP systolic 129–144; BP diastolic 72–81; PULSE 50–101; RESP 16–18; TEMP 36.1–36.8; O2SAT 94–98
[2019-12-24] MEDS: methylPREDNISolone (MEDROL) DOSEPACK 4 MG TABLETS PO ×2 (05:47→20:54)
[2019-12-24] MEDS: LEVOTHYROXINE SODIUM 100 MCG TABLET PO (05:47)
[2019-12-24 06:19] LABS: Mean Corpuscular HGB Conc 32.6 g/dl (32-36); Mean Corpuscular Hemoglobin 33.9 pg (26-34); Mean Corpuscular Volume 103.8 fl (80-100); Platelet Count Result 330 k/mm3 (150-375); Red Blood Count 4.43 M/mm3 (4.2-5.4); Red Cell Distribution Width 14.3 % (11.5-14.5); White Blood Count 9.7 K/mm3 (4.5-10.0)
[2019-12-24 06:37] LABS: NT Pro B Type Natriuretic Pept 6430 PG/ML (5-100)
[2019-12-24 06:42] LABS: Alanine Aminotransferase 171 U/L (4-35); Albumin Level 3.9 g/dL (3.5-5.1); Alkaline Phosphatase 101 U/L (38-126); Aspartate Amino Transferase 72 U/L (14-36); Bilirubin,Total 0.7 mg/dL (0.2-1.3); Blood Urea Nitrogen 41 mg/dL (7-17); Calcium 9.3 mg/dL (8.4-10.2); Carbon Dioxide 32 mmol/L (22-30); Chloride 90 mmol/L (98-107); Estimated CRCL calculation 23 ml/min; Estimated Glomerular Filt Rate 39; Glucose 143 mg/dL (65-105); Potassium 4.9 mmol/L (3.4-5.0); Sodium 137 mmol/L (137-145)
--- NOTE | 2019-12-24 07:08 | ECG_ITS ---
Measurements Intervals [place] Rate: 97 P: CA: 0 QRS: 0 QRSD: 126 T: 177 QT: 404 QTc: 515 Interpretive Statements ATRIAL FIBRILLATION LEFT BUNDLE BRANCH BLOCK VOLTAGE CRITERIA FOR LVH ST-T WAVE ABNORMALITY IN LATERAL LEADS- CONSIDER ISCHEMIA BASELINE ARTIFACT- II, III ABNORMAL ECG Electronically Signed On 12-24-2019 8:57:52 [employer]CH[employer]IC by Reinaldo Crowell D.O.
--- NOTE | 2019-12-24 07:24 | PC.NURSE ---
Pt is refusing the bed alarm this morning. Teaching was done on the importance of the bed alarm for her safety. Pt is alert and oriented and states she knows the risks.
--- NOTE | 2019-12-24 07:29 | PM.IMPN ---
Progress Note: A&P Assessment and Plan (1) Chest pain: Qualifiers: Chest pain type: unspecified Qualified Code(s): R07.9 - Chest pain, unspecified Code(s): R07.9 - Chest pain, unspecified Status: Acute Assessment and Plan: Patient with atypical chest pain occurring at rest. Possibly related to anxiety. EKG reviewed personally showing no significant changes. Patient had a left heart catheterization on 11/16/19 showing: Patent SVG to PDA, patent SVG sequential to the ramus, diagonal and obtuse marginal. Totally occluded DIAMOND to LAD. Diffuse 40-50% proximal LAD. Moderate to severe pulmonary arterial hypertension. Slightly elevated pulmonary capillary wedge pressure Will discuss with Cardiology but will continue curernt meds at this time without change. Contineu tele. (2) Influenza A: Code(s): J10.1 - Influenza due to other identified influenza virus with other respiratory manifestations Status: Acute Assessment and Plan: Patient was influenza A positive in the emergency room on 12/19/2019. Tamiflu started. Tamiflu is renally dosed. Show complete a course tomorrow. She appears to be clinically improving. Continue to monitor. (3) Pneumonia: Qualifiers: Pneumonia type: due to influenza A virus Laterality: bilateral Lung location: lower lobe of lung Qualified Code(s): J11.00 - Influenza due to unidentified influenza virus with unspecified type of pneumonia Code(s): J18.9 - Pneumonia, unspecified organism Status: Acute Assessment and Plan: CXR images from 12/23/19 was reviewed. This shows mild atelectasis at the lung bases with improvement. She has been weaned to room air. She is currently on Medrol, doxycycline and Rocephin. She is also on Tamiflu for the influenza. She is not on nebulizer treatments. There are no blood cultures that have been collected. Medrol Dosepak will end tomorrow so will continue this until it is completed. This is day 4 of doxycycline and will complete 7 days. (4) Acute respiratory failure with hypoxia: Code(s): J96.01 - Acute respiratory failure with hypoxia Status: Acute Assessment and Plan: Is felt patient may have pneumonia by chest x-ray although appears more likely atelectasis and/or viral pneumonia. No wheezing noted on exam. Patient is no longer hypoxic. Symptoms appear to be resolving as expected. (5) PAF (paroxysmal atrial fibrillation): Code(s): I48.0 - Paroxysmal atrial fibrillation Status: Chronic Assessment and Plan: Heart rate occasion elevated by telemetry but overall heart rate well controlled. Continue metoprolol and amiodarone. Will continue the Eliquis. She is also on Plavix. Hemoglobin remains normal. Continue current treatment plan. (6) Congestive heart failure: Qualifiers: Heart failure type: unspecified Heart failure chronicity: chronic Qualified Code(s): I50.9 - Heart failure, unspecified Code(s): I50.9 - Heart failure, unspecified Status: Chronic Assessment and Plan: EF 50-55% by recent Echo. BNP was 10,000 2 days ago but has dropped to 6400 now. Patient appears to be euvolemic. Continue Lasix and other cardiac medications. (7) Aortic stenosis: Qualifiers: Cardiac valve disease etiology: etiology unspecified Qualified Code(s): I35.0 - Nonrheumatic aortic (valve) stenosis Code(s): I35.0 - Nonrheumatic aortic (valve) stenosis Status: Chronic Assessment and Plan: CLEMENCIA 09/15/19 showing severe aortic stenosis with ELIZABETH 0.9cm2. Limited TTE echo November with ELIZABETH at 0.6. Patient had LHC in November here in preparation for further evaluated for TAVR by Dr. Sanchez at [facility]. When discharged per Cardiology, patient willl need a follow-up CTA of iliacs and aorta at [facility] with Dr. Sanchez to evaluate her candidacy for TAVR. (8) Chronic kidney disease, stag
[2019-12-24] MEDS: POTASSIUM CHLORIDE 20 MEQ TABLET.ER 40 MEQ PO ×2 (09:36→17:54)
[2019-12-24] MEDS: AMLODIPINE BESYLATE 5 MG TABLET 10 MG PO (09:36)
[2019-12-24] MEDS: DOXYCYCLINE HYCLATE 100 MG TABLET PO ×2 (09:36→20:53)
[2019-12-24] MEDS: APIXABAN 2.5 MG TABLET PO ×2 (09:36→20:55)
[2019-12-24] MEDS: CLOPIDOGREL BISULFATE 75 MG TABLET PO (09:37)
[2019-12-24] MEDS: METOPROLOL TARTRATE 50 MG TAB 100 MG PO ×2 (09:37→20:55)
[2019-12-24] MEDS: FUROSEMIDE 40 MG TABLET PO ×2 (09:38→17:54)
[2019-12-24] MEDS: AMIODARONE HCL 200 MG TABLET PO (09:38)
[2019-12-24] MEDS: OSELTAMIVIR PHOSPHATE 30 MG CAPSULE PO (09:38)
[2019-12-24] MEDS: IRBESARTAN 150 MG TABLET 300 MG PO (12:44)
[2019-12-24] MEDS: VENLAFAXINE HCL XR 75 MG CAP.ER.24H PO (12:44)
[2019-12-24] MEDS: SIMVASTATIN 20 MG TABLET PO (20:56)
[2019-12-25] VITALS (15 sets, daily range): BP systolic 112–118; BP diastolic 64–66; PULSE 53–80; RESP 16–18; TEMP 36.3–36.6; O2SAT 92–98
[2019-12-25 06:42] LABS: Alanine Aminotransferase 149 U/L (4-35); Albumin Level 3.8 g/dL (3.5-5.1); Alkaline Phosphatase 107 U/L (38-126); Aspartate Amino Transferase 69 U/L (14-36); Bilirubin,Total 0.8 mg/dL (0.2-1.3); Blood Urea Nitrogen 51 mg/dL (7-17); Calcium 9.2 mg/dL (8.4-10.2); Carbon Dioxide 31 mmol/L (22-30); Chloride 91 mmol/L (98-107); Estimated CRCL calculation 20 ml/min; Estimated Glomerular Filt Rate 33; Glucose 153 mg/dL (65-105); Potassium 4.9 mmol/L (3.4-5.0); Sodium 136 mmol/L (137-145)
[2019-12-25] MEDS: LEVOTHYROXINE SODIUM 100 MCG TABLET PO (06:58)
[2019-12-25] MEDS: methylPREDNISolone 4 MG TABLET PO (08:37)
[2019-12-25] MEDS: POTASSIUM CHLORIDE 20 MEQ TABLET.ER 40 MEQ PO ×2 (08:38→17:01)
[2019-12-25] MEDS: AMIODARONE HCL 200 MG TABLET PO (08:38)
[2019-12-25] MEDS: AMLODIPINE BESYLATE 5 MG TABLET 10 MG PO (08:38)
[2019-12-25] MEDS: DOXYCYCLINE HYCLATE 100 MG TABLET PO ×2 (08:38→21:15)
[2019-12-25] MEDS: CLOPIDOGREL BISULFATE 75 MG TABLET PO (08:38)
[2019-12-25] MEDS: APIXABAN 2.5 MG TABLET PO ×2 (08:38→21:17)
[2019-12-25] MEDS: METOPROLOL TARTRATE 50 MG TAB 100 MG PO ×2 (08:39→21:16)
[2019-12-25] MEDS: OSELTAMIVIR PHOSPHATE 30 MG CAPSULE PO (08:39)
[2019-12-25] MEDS: FUROSEMIDE 40 MG TABLET PO ×2 (08:39→17:01)
--- NOTE | 2019-12-25 09:54 | PM.IMPN ---
Progress Note: A&P Assessment and Plan (1) Chest pain: Qualifiers: Chest pain type: unspecified Qualified Code(s): R07.9 - Chest pain, unspecified Code(s): R07.9 - Chest pain, unspecified Status: Acute Assessment and Plan: Patient with atypical chest pain occurring at rest on 12/24/19. Possibly related to anxiety. EKG reviewed personally showing no significant changes. Patient had a left heart catheterization on 11/16/19 showing: Patent SVG to PDA, patent SVG sequential to the ramus, diagonal and obtuse marginal. Totally occluded DIAMOND to LAD. Diffuse 40-50% proximal LAD. Moderate to severe pulmonary arterial hypertension. Slightly elevated pulmonary capillary wedge pressure Further evaluation per Cardiology. Continue current meds at this time without change. (2) Influenza A: Code(s): J10.1 - Influenza due to other identified influenza virus with other respiratory manifestations Status: Acute Assessment and Plan: Patient was influenza A positive in the emergency room on 12/19/2019. Completed Tamiflu. She appears to be clinically improving. Continue to monitor. (3) Pneumonia: Qualifiers: Laterality: bilateral Lung location: lower lobe of lung Pneumonia type: due to influenza A virus Qualified Code(s): J11.00 - Influenza due to unidentified influenza virus with unspecified type of pneumonia Code(s): J18.9 - Pneumonia, unspecified organism Status: Acute Assessment and Plan: CXR images from 12/23/19 was reviewed. This shows mild atelectasis at the lung bases with improvement. She is back on 1L O2. She is currently on Medrol and doxycycline. Rocephin stopped yesterday. She has completed Tamiflu today. She was not on nebulizer treatments. There are no blood cultures that have been collected. Medrol Dosepak completed this morning. This is day 5 of doxycycline and will complete 7 days. (4) Acute respiratory failure with hypoxia: Code(s): J96.01 - Acute respiratory failure with hypoxia Status: Acute Assessment and Plan: Is felt patient may have pneumonia by chest x-ray although appears more likely atelectasis and/or viral pneumonia. Benign exam now. Symptoms appear to be resolving as expected. Home O2 eval showing no needs but patient on 1L this morning. Repeat home O2 eval (5) PAF (paroxysmal atrial fibrillation): Code(s): I48.0 - Paroxysmal atrial fibrillation Status: Chronic Assessment and Plan: Heart rate well controlled. Continue metoprolol and amiodarone. Will continue the Eliquis. She is also on Plavix. Hemoglobin remains normal. Continue current treatment plan. Stop tele (6) Congestive heart failure: Qualifiers: Heart failure chronicity: chronic Heart failure type: unspecified Qualified Code(s): I50.9 - Heart failure, unspecified Code(s): I50.9 - Heart failure, unspecified Status: Chronic Assessment and Plan: EF 50-55% by recent Echo. BNP was 10,000 2 days ago but has dropped to 6400. Patient appears to be euvolemic. Continue Lasix and other cardiac medications. (7) Aortic stenosis: Qualifiers: Cardiac valve disease etiology: etiology unspecified Qualified Code(s): I35.0 - Nonrheumatic aortic (valve) stenosis Code(s): I35.0 - Nonrheumatic aortic (valve) stenosis Status: Chronic Assessment and Plan: CLEMENCIA 09/15/19 showing severe aortic stenosis with ELIZABETH 0.9cm2. Limited TTE echo November with ELIZABETH at 0.6. Patient had LHC in November here in preparation for further evaluated for TAVR by Dr. Sanchez at [facility]. When discharged per Cardiology, patient will need a follow-up CTA of iliacs and aorta at [facility] with Dr. Sanchez to evaluate her candidacy for TAVR. (8) Chronic kidney disease, stage 3: Code(s): N18.3 - Chronic kidney disease, stage 3 (moderate) Status: Acute Assess
--- NOTE | 2019-12-25 10:18 | PM.PNCARD ---
Progress Note: A&P Assessment and Plan (1) Influenza A: Code(s): J10.1 - Influenza due to other identified influenza virus with other respiratory manifestations Status: Acute Assessment and Plan: Patient looks a lot better than I expected, no respiratory distress, doing fine on 1 L of O2 and occasionally on. Treatment per hospitalist (2) Chronic diastolic heart failure: Code(s): I50.32 - Chronic diastolic (congestive) heart failure Status: Acute Assessment and Plan: Patient looks pretty good despite her influenza with mild chronic CHF. Has been on home dose of furosemide 40 mg b.i.d. will repeat a PA and lateral chest x-ray today as well as a BNP. Creatinine is increasing slightly and she appears more pre renal .may need to back off furosemide (3) Aortic stenosis: Qualifiers: Cardiac valve disease etiology: etiology unspecified Qualified Code(s): I35.0 - Nonrheumatic aortic (valve) stenosis Code(s): I35.0 - Nonrheumatic aortic (valve) stenosis Status: Chronic Assessment and Plan: Severe aortic stenosis being evaluated for TAVR by Dr. Sanchez at [facility]. When discharged, we will arrange for a follow-up CTA of iliacs and aorta at [facility] with Dr. Sanchez to evaluate her candidacy for TAVR. ___ (4) Persistent atrial fibrillation: Code(s): I48.19 - Other persistent atrial fibrillation Status: Acute Assessment and Plan: Heart rate is controlled, with metoprolol 100 mg b.i.d. and amiodarone 200 mg daily. Anticoagulated with Eliquis 2.5 mg b.i.d. (5) Chronic kidney disease, stage 3: Code(s): N18.3 - Chronic kidney disease, stage 3 (moderate) Status: Acute Assessment and Plan: CKD stage 2-3. Renal function is stable. Follow I's and O's, fluid balance, BMPs etcetera Subjective Date/time seen: 12/25/19 10:18 Interval history: Follow-up CHF, aortic stenosis. Admitted with SOB and influenza. Date of service: 12/25/2019: no chest pain or shortness of breath. no edema Review of Systems Constitutional: Constitutional: Denies chills, Denies difficulty sleeping, Denies fatigue and Reports weakness ENT: Denies epistaxis and Denies nasal discharge Cardiovascular: Cardiovascular: Denies chest pain, Reports leg edema, Denies lightheadedness, Denies palpitations, Denies dyspnea and Denies dyspnea on exertion Respiratory: Respiratory: Denies chest congestion, Reports cough, Denies dyspnea and Denies dyspnea on exertion Gastrointestinal: Gastrointestinal: Denies abdominal pain and Reports diarrhea Genitourinary: Genitourinary: Denies hematuria Musculoskeletal: Musculoskeletal: Denies back pain Integumentary/Breasts: Skin/Breast: Denies rash Neurologic: Denies confusion and Reports weakness Psychiatric: Psychiatric: Denies anxiety and Denies confusion Endocrine: Endocrine: Denies fatigue and Denies palpitations Hematologic/Lymphatic: Hematologic/Lymphatic: Reports easy bleeding Allergic/Immunologic: Allergic/Immunologic: Denies tongue swelling Exam Narrative: Exam Narrative: Elderly female lying in bed, daughter at the bedside, smiling at me and in no distress Const: General: comfortable and no acute distress; No confusion Orientation/consciousness: No confusion HENMT: General nose exam: no epistaxis Mouth: Yes moist mucous membranes Eyes: EOM: EOMs intact bilaterally Neck: Neck: supple and No no JVD (Slight JVD) Resp: Effort & Inspection: normal respiratory effort Auscultation: rales (RAles 1/2 up on left, base on right) Cardio: Rate: tachycardic Heart sounds: Murmur heart sound present Other: 3/6 harsh ALEXANDER upper sternal borders GI: Inspection: non-distended Auscultation: normal bowel sounds Skin: General skin exam: normal co
[2019-12-25 11:42] LABS: NT Pro B Type Natriuretic Pept 4650 PG/ML (5-100)
[2019-12-25] MEDS: VENLAFAXINE HCL XR 75 MG CAP.ER.24H PO (12:07)
--- NOTE | 2019-12-25 14:52 | PCRCNOTE ---
HOME O2 EVAL COMPLETE. PT. DOES NOT NEED OXYGEN AT HOME.
--- NOTE | 2019-12-25 14:54 | HOMEO2EVAL ---
Home Oxygen Evaluation RC: Home Oxygen (O2) Evaluation Start: 12/25/19 09:57 Freq: ONCE Status: Active Protocol: RPE Activity Type Activity Date Activity User E-Sign Co-Sign Detail Recorded Client Recorded Date Recorded By Document 12/25/19 14:43 KRM [id number] 12/25/19 14:54 KRM Document 12/25/19 14:44 KRM [email or web address] 12/25/19 14:54 KRM Document 12/25/19 14:46 KRM [email or web address] 12/25/19 14:54 KRM Document 12/25/19 14:49 [email or web address] [email or web address] 12/25/19 14:54 KRM 12/25/19 12/25/19 12/25/19 14:43 14:44 14:46 Home O2 Evaluation Test Phase Resting Exercise Exercise Oxygen Delivery Room Air Room Air Room Air Pulse Oximetry (90-100 %) 92 95 98 Pulse Rate (60-100 beats/min) 67 72 66 Activity Tolerance Good Good Ambulation Distance (feet) 75 Treatment Charges O2 Evaluation 12/25/19 14:49 Home O2 Evaluation Test Phase Resting Oxygen Delivery Room Air Pulse Oximetry (90-100 %) 98 Pulse Rate (60-100 beats/min) 64 Activity Tolerance Ambulation Distance (feet) Treatment Charges
[2019-12-25] MEDS: IRBESARTAN 150 MG TABLET 300 MG PO (14:56)
[2019-12-25] MEDS: ACETAMINOPHEN 325 MG TABLET PO (21:14)
[2019-12-25] MEDS: SIMVASTATIN 20 MG TABLET PO (21:16)
[2019-12-26] MEDS: LEVOTHYROXINE SODIUM 100 MCG TABLET PO (05:30)
[2019-12-26 06:00] VITALS: BP 107/82; PULSE 66; RESP 18; TEMP 36.4; O2SAT 94
--- NOTE | 2019-12-26 06:33 | PC.NURSE ---
PATIENT REFUSED TO HAVE BED ALARM ON AFTER GETTING UP THIS AM, REASON FOR ALARM FOR PATIENT SAFETY WAS EXPLAINED TO PATIENT, AND PATIENT STATED SHE KNEW HOW TO CALL FOR ASSISTANCE.
[2019-12-26 06:40] LABS: Potassium 5.2 mmol/L (3.4-5.0)
[2019-12-26 09:29] VITALS: PULSE 80
[2019-12-26] MEDS: DOXYCYCLINE HYCLATE 100 MG TABLET PO (09:29)
[2019-12-26] MEDS: METOPROLOL TARTRATE 50 MG TAB 100 MG PO (09:29)
[2019-12-26] MEDS: CLOPIDOGREL BISULFATE 75 MG TABLET PO (09:29)
[2019-12-26] MEDS: APIXABAN 2.5 MG TABLET PO (09:29)
[2019-12-26 09:30] VITALS: PULSE 80
[2019-12-26] MEDS: AMIODARONE HCL 200 MG TABLET PO (09:30)
[2019-12-26] MEDS: AMLODIPINE BESYLATE 5 MG TABLET 10 MG PO (09:30)
[2019-12-26] MEDS: FUROSEMIDE 40 MG TABLET PO (09:30)
--- NOTE | 2019-12-26 10:50 | PM.PNCARD ---
Progress Note: A&P Assessment and Plan (1) Influenza A: Code(s): J10.1 - Influenza due to other identified influenza virus with other respiratory manifestations Status: Acute Assessment and Plan: Patient looks a lot better than I expected, no respiratory distress, doing fine off of oxygen and occasionally on. Treatment per hospitalist (2) Chronic diastolic heart failure: Code(s): I50.32 - Chronic diastolic (congestive) heart failure Status: Acute Assessment and Plan: Patient looks pretty good despite her influenza with mild chronic CHF. Has been on home dose of furosemide 40 mg b.i.d. BMP now (3) Aortic stenosis: Qualifiers: Cardiac valve disease etiology: etiology unspecified Qualified Code(s): I35.0 - Nonrheumatic aortic (valve) stenosis Code(s): I35.0 - Nonrheumatic aortic (valve) stenosis Status: Chronic Assessment and Plan: Severe aortic stenosis being evaluated for TAVR by Dr. Sanchez at [facility]. When discharged, we will arrange for a follow-up CTA of iliacs and aorta at [facility] with Dr. Sanchez to evaluate her candidacy for TAVR. ___ (4) Persistent atrial fibrillation: Code(s): I48.19 - Other persistent atrial fibrillation Status: Acute Assessment and Plan: Heart rate is controlled, with metoprolol 100 mg b.i.d. and amiodarone 200 mg daily. Anticoagulated with Eliquis 2.5 mg b.i.d. (5) Chronic kidney disease, stage 3: Code(s): N18.3 - Chronic kidney disease, stage 3 (moderate) Status: Acute Assessment and Plan: CKD stage 2-3. Renal function is stable. Follow I's and O's, fluid balance, BMPs etcetera (6) Hyperkalemia: Code(s): E87.5 - Hyperkalemia Status: Acute Assessment and Plan: will discontinue potassium. Patient is hyperkalemia today Subjective Date/time seen: 12/26/19 10:50 Interval history: Follow-up CHF, aortic stenosis. Admitted with SOB and influenza. Date of service: 12/26/2019: no chest pain or shortness of breath. no edema.Anxious to go home Review of Systems Constitutional: Constitutional: Denies chills, Denies difficulty sleeping, Denies fatigue and Reports weakness ENT: Denies epistaxis, Denies nasal discharge and Denies tongue swelling Cardiovascular: Cardiovascular: Denies chest pain, Reports leg edema, Denies lightheadedness, Denies palpitations, Denies dyspnea and Denies dyspnea on exertion Respiratory: Respiratory: Denies chest congestion, Reports cough, Denies dyspnea and Denies dyspnea on exertion Gastrointestinal: Gastrointestinal: Denies abdominal pain and Reports diarrhea Genitourinary: Genitourinary: Denies hematuria Musculoskeletal: Musculoskeletal: Denies back pain Integumentary/Breasts: Skin/Breast: Denies rash Neurologic: Denies confusion and Reports weakness Psychiatric: Psychiatric: Denies anxiety and Denies confusion Endocrine: Endocrine: Denies fatigue and Denies palpitations Hematologic/Lymphatic: Hematologic/Lymphatic: Reports easy bleeding Allergic/Immunologic: Allergic/Immunologic: Denies tongue swelling Exam Narrative: Exam Narrative: Elderly female lying in bed, daughter at the bedside, smiling at me and in no distress Const: General: comfortable and no acute distress; No confusion Orientation/consciousness: No confusion HENMT: General nose exam: no epistaxis Mouth: Yes moist mucous membranes Eyes: EOM: EOMs intact bilaterally Neck: Neck: supple and No no JVD (Slight JVD) Resp: Effort & Inspection: normal respiratory effort Auscultation: rales (RAles 1/2 up on left, base on right) Cardio: Rate: tachycardic Rhythm: abnormal rhythm regularly irregular Heart sounds: Murmur heart sound present Other: 3/6 harsh ALEXANDER upper sternal borders
[2019-12-26 11:38] LABS: Blood Urea Nitrogen 62 mg/dL (7-17); Calcium 9.6 mg/dL (8.4-10.2); Carbon Dioxide 32 mmol/L (22-30); Chloride 93 mmol/L (98-107); Estimated CRCL calculation 17 ml/min; Estimated Glomerular Filt Rate 27; Glucose 147 mg/dL (65-105); Potassium 4.8 mmol/L (3.4-5.0); Sodium 136 mmol/L (137-145)
--- NOTE | 2019-12-26 12:00 | PM.IMPN ---
Progress Note: A&P Assessment and Plan (1) Acute respiratory failure with hypoxia: Code(s): J96.01 - Acute respiratory failure with hypoxia Status: Acute Assessment and Plan: Result of pneumonia, influenza A. Now resolved. Not on oxygen at this time. Home oxygen evaluation with no oxygen need found. Will discharge home today. (2) Influenza A: Code(s): J10.1 - Influenza due to other identified influenza virus with other respiratory manifestations Status: Acute Assessment and Plan: Patient was influenza A positive in the emergency room on 12/19/2019. Has completed treatment with Tamiflu. Clinically improved. (3) Pneumonia: Qualifiers: Pneumonia type: due to influenza A virus Laterality: bilateral Lung location: lower lobe of lung Qualified Code(s): J11.00 - Influenza due to unidentified influenza virus with unspecified type of pneumonia Code(s): J18.9 - Pneumonia, unspecified organism Status: Acute Assessment and Plan: Infiltrates in mid and lower lung zones on 12/19/2019. Chest x-ray from 12/25/2019 with mild atelectasis seen. Completed Medrol Dosepak. Continue pleaded Tamiflu. Has completed 11 of 14 doses of doxycycline. (4) Chest pain: Qualifiers: Chest pain type: unspecified Qualified Code(s): R07.9 - Chest pain, unspecified Code(s): R07.9 - Chest pain, unspecified Status: Acute Assessment and Plan: Patient with atypical chest pain occurring at rest on 12/24/19. Possibly related to anxiety. Cardiology has been following and appreciate input. Had cardiac catheterization in November 2019 with following results: Patent SVG to PDA, patent SVG sequential to the ramus, diagonal and obtuse marginal. Totally occluded DIAMOND to LAD. Diffuse 40-50% proximal LAD. Moderate to severe pulmonary arterial hypertension. Slightly elevated pulmonary capillary wedge pressure No additional evaluation needed at this time. (5) PAF (paroxysmal atrial fibrillation): Code(s): I48.0 - Paroxysmal atrial fibrillation Status: Chronic Assessment and Plan: Appreciate help from Cardiology. Remains on metoprolol 100 mg q.12 hours with amiodarone 200 mg daily. On Eliquis for anticoagulation. (6) Congestive heart failure: Qualifiers: Heart failure type: unspecified Heart failure chronicity: chronic Qualified Code(s): I50.9 - Heart failure, unspecified Code(s): I50.9 - Heart failure, unspecified Status: Chronic Assessment and Plan: EF 50-55% by recent Echo. Presently stable. On home furosemide 40 mg b.i.d.. = (7) Aortic stenosis: Qualifiers: Cardiac valve disease etiology: etiology unspecified Qualified Code(s): I35.0 - Nonrheumatic aortic (valve) stenosis Code(s): I35.0 - Nonrheumatic aortic (valve) stenosis Status: Chronic Assessment and Plan: CLEMENCIA 09/15/19 showing severe aortic stenosis with ELIZABETH 0.9cm2. Limited TTE echo November with ELIZABETH at 0.6. Patient had LHC in November here in preparation for further evaluated for TAVR by Dr. Sanchez at [facility]. When discharged per Cardiology, patient will need a follow-up CTA of iliacs and aorta at [facility] with Dr. Sanchez to evaluate her candidacy for TAVR. (8) Chronic kidney disease, stage 3: Code(s): N18.3 - Chronic kidney disease, stage 3 (moderate) Status: Acute Assessment and Plan: Creatinine higher at 1.80 today but will need to tolerate. Will need to follow as outpatient. (9) Hypertension: Qualifiers: Hypertension type: essential hypertension Qualified Code(s): I10 - Essential (primary) hypertension Code(s): I10 - Essential (primary) hypertension Status: Chronic Assessment and Plan: Blood pressure reviewed on 12/26/2019 and stable. Continue amlodipine, metoprolol and Avapro. (10) Hypothyroidism: Qualifiers:
[2019-12-26] MEDS: VENLAFAXINE HCL XR 75 MG CAP.ER.24H PO (12:08)
--- NOTE | 2019-12-26 18:02 | PM.DS ---
DS: Diagnosis Admitting Diagnosis Admitting Diagnosis: Influenza due to other identified influenza virus with other respiratory manifestations Discharge Diagnosis (1) Acute respiratory failure with hypoxia: Code(s): J96.01 - Acute respiratory failure with hypoxia Status: Acute (2) Influenza A: Code(s): J10.1 - Influenza due to other identified influenza virus with other respiratory manifestations Status: Acute (3) Pneumonia: Qualifiers: Laterality: bilateral Lung location: lower lobe of lung Pneumonia type: due to influenza A virus Qualified Code(s): J11.00 - Influenza due to unidentified influenza virus with unspecified type of pneumonia Code(s): J18.9 - Pneumonia, unspecified organism Status: Acute (4) Chest pain: Qualifiers: Chest pain type: unspecified Qualified Code(s): R07.9 - Chest pain, unspecified Code(s): R07.9 - Chest pain, unspecified Status: Acute (5) PAF (paroxysmal atrial fibrillation): Code(s): I48.0 - Paroxysmal atrial fibrillation Status: Chronic (6) Congestive heart failure: Qualifiers: Heart failure chronicity: chronic Heart failure type: unspecified Qualified Code(s): I50.9 - Heart failure, unspecified Code(s): I50.9 - Heart failure, unspecified Status: Chronic (7) Aortic stenosis: Qualifiers: Cardiac valve disease etiology: etiology unspecified Qualified Code(s): I35.0 - Nonrheumatic aortic (valve) stenosis Code(s): I35.0 - Nonrheumatic aortic (valve) stenosis Status: Chronic (8) Chronic kidney disease, stage 3: Code(s): N18.3 - Chronic kidney disease, stage 3 (moderate) Status: Acute (9) Hypertension: Qualifiers: Hypertension type: essential hypertension Qualified Code(s): I10 - Essential (primary) hypertension Code(s): I10 - Essential (primary) hypertension Status: Chronic (10) Hypothyroidism: Qualifiers: Hypothyroidism type: acquired Qualified Code(s): E03.9 - Hypothyroidism, unspecified Code(s): E03.9 - Hypothyroidism, unspecified Status: Chronic (11) Anxiety and depression: Code(s): F41.9 - Anxiety disorder, unspecified; F32.9 - Major depressive disorder, single episode, unspecified Status: Acute DS: Summary Hospital Course Reason for hospitalization: Shortness of breath and nausea. Hospital Course: Date of Service of Discharge: December 26, 2019. History of Present Illness: Patient is an 79-year-old with severe aortic stenosis recently discharged 2 days earlier who was noted to have increased shortness of breath and nausea early on the morning of presentation. Patient was to go for evaluation for TAVR on the day of presentation. She is currently living at [facility]. Patient was unable to get out of bed due to her symptoms. Patient did not miss any medications. Daughter did come to evaluate with patient noted to be tachypneic and nauseated. No fever or chills. On evaluation in the emergency room, she did test positive for influenza A. She was also requiring 2 L of oxygen. With her symptoms, patient was admitted for further evaluation and treatment. Course in Hospital: Patient was started on Tamiflu in the emergency room due to testing positive for influenza A. She was noted to have pneumonia on imaging as result of the influenza a and started on oral doxycycline. She additionally was given Medrol Dosepak which she completed during her stay. She did require oxygen but was able to wean off to room air prior to discharge. A home oxygen evaluation was done with no home oxygen requirement. Patient's shortness of breath did return to her baseline with known severe aortic stenosis. She was seen in consultation by Cardiology given her cardiac issues. She was noted to have an episode of atypical chest pain at rest on 12/24/2019 which event
== END 2019-12-26 12:50 | disposition home or self-care (01) | DRG 193 ==
LOC: ANHED 11:56 → ANH3MEDSUR 14:18
PROVIDERS: Family Medicine; Internal Medicine; Internal Medicine Cardiovascular Disease; Nurse Practitioner; Physician Assistant; Admitting Provider Family Medicine; Emergency Provider Emergency Medicine; PCP Internal Medicine; Visit Provider Family Medicine
DX: J10.01 Influenza due to other identified influenza virus with the same other identified influenza virus pneumonia (principal); J96.01 Acute respiratory failure with hypoxia; I48.20 Chronic atrial fibrillation, unspecified; I13.0 Hypertensive heart and chronic kidney disease with heart failure and stage 1 through stage 4 chronic kidney disease, or unspecified chronic kidney disease; I50.32 Chronic diastolic (congestive) heart failure; I35.0 Nonrheumatic aortic (valve) stenosis; F41.8 Other specified anxiety disorders; N18.3 Chronic kidney disease, stage 3 (moderate); I25.10 Atherosclerotic heart disease of native coronary artery without angina pectoris; E78.5 Hyperlipidemia, unspecified; I10 Essential (primary) hypertension; E03.9 Hypothyroidism, unspecified; I25.2 Old myocardial infarction; M81.0 Age-related osteoporosis without current pathological fracture; Z90.49 Acquired absence of other specified parts of digestive tract; Z66 Do not resuscitate; I27.20 Pulmonary hypertension, unspecified
CPT/HCPCS: 36415; 71045; 71046; 80048; 80053; 83735; 83880; 84132; 84484; 85025; 85027; 85055; 87045; 87046; 87427; 87804; 93005; 94618; 94640; 99291; A9270; J0131; J0696; J1940; J2405

== ENCOUNTER 2020-01-10 21:03 | Emergency (ER) | payer MEDICARE, SELFPAY ==
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
--- NOTE | ~2020-01-10 | XR_ITS ---
XR chest 2V 01/10/2020 22:24 Indication: Generalized weakness. History of pneumonia. Procedure: AP and lateral views chest Comparison: Comparison to multiple prior studies sequentially, with oldest reviewed study dated 12/21. Findings: Status post median sternotomy for CABG. Cardiomegaly. No pleural effusion or pneumothorax. Mild pulmonary venous congestion. There is atherosclerosis. There are chronic burst fractures in the thoracic spine. Impression: 1: Cardiomegaly with pulmonary vascular congestion. Reviewed, dictated and finalized at location A. Impression: 1: Cardiomegaly with pulmonary vascular congestion.
[2020-01-10 21:11] VITALS: BP 98/69; PULSE 156; RESP 16; TEMP 36.4; O2SAT 98
--- NOTE | 2020-01-10 21:22 | ED.WEAKNESS ---
HPI - Weakness General Chief complaint: Weakness Stated complaint: TIRED LEGS, ?LOW Na, CAN'T WALK Time Seen by Provider: 01/10/20 21:17 Source: patient, family and RN notes reviewed Mode of arrival: wheelchair Limitations: no limitations History of Present Illness HPI Narrative: Pt is a 79 y/o female who presents to the ED with c/o generalized weakness. According to the pt's family, she was recently hospitalized for influenza and pneumonia. She notes that the pt had diarrhea for several days after being discharged back to the [facility] [place] [facility] [place] several weeks ago. Pt states that she has had worsening generalized weakness throughout the day today, noting that she has been unable to walk this evening. She also reports nausea, but denies any vomiting, CP, ABD pain, SOB, cough, fever, numbness/tingling, dysuria, or changes in vision. Pt states that she hasn't had any recent falls. She notes that she is currently taking Eliquis. MD Complaint: generalized weakness Onset (ago): day(s) (1) Location: generalized Context: recent illness Associated symptoms: nausea/vomiting (nausea) and other (diarrhea (resolved)) Related Data Home Medications Medication Instructions Recorded Confirmed clopidogrel 75 mg PO DAILY 09/08/19 12/19/19 diazepam [Valium] 10 mg PO PRN PRN 09/08/19 12/19/19 levothyroxine 100 mcg PO DAILY 09/08/19 12/19/19 potassium chloride 20 meq PO DAILY 09/08/19 12/19/19 simvastatin 20 mg PO HS 09/08/19 12/19/19 venlafaxine 75 mg PO QACLUNCH 09/08/19 12/19/19 Eliquis 2.5 mg PO Q12-24H 11/11/19 12/19/19 amiodarone [Pacerone] 200 mg PO DAILY 11/11/19 12/19/19 amlodipine [Norvasc] 10 mg PO DAILY 11/11/19 12/19/19 furosemide 40 mg PO BID 11/11/19 12/19/19 metoprolol tartrate 100 mg PO Q12H 11/11/19 12/19/19 oxycodone-acetaminophen [Percocet] 1 tablet PO Q6H PRN 12/13/19 12/19/19 irbesartan 300 mg PO DAILY 12/19/19 12/19/19 Allergies Allergy/AdvReac Type Severity Reaction Status Date / Time No Known Allergies Allergy Verified 12/19/19 08:49 Review of Systems Review of Systems: Narrative: CONSTITUTIONAL: Denies fever, chills, or sweats. Reports generalized weakness. EYES: Denies visual changes, redness, or discharge. CARDIOVASCULAR: Denies chest pain, palpitations, or edema. RESPIRATORY: Denies cough or dyspnea. GASTROINTESTINAL: Denies abdominal pain or vomiting. Reports nausea and diarrhea (resolved). GENITOURINARY: Denies dysuria or hematuria. MUSCULOSKELETAL: Denies back pain, joint pain, or myalgia. NEUROLOGIC: Denies headache or numbness/tingling. All systems reviewed & are unremarkable except as noted in HPI and below PMFSH Past Medical History Medical History Acute respiratory failure with hypoxia Anxiety Aortic stenosis Severe Atrial flutter Burst fracture of lumbar vertebra Chronic diastolic heart failure Chronic renal failure, stage 3 (moderate) Congestive heart failure Mixed Coronary artery disease Depression DVT prophylaxis Foot fracture, right History of basal cell carcinoma History of stent insertion of renal artery Hyperlipidemia Hypertension Hypokalemia Hypothyroidism Hypoxemia Influenza A Myocardial infarction Osteoporosis PAF (paroxysmal atrial fibrillation) Cardioverted Persistent atrial fibrillation Pneumonia Renal artery stenosis Occluded right renal artery Surgical History Surgical History H/O hysterectomy for benign disease History of cardiac catheterization History of renal stent Hx of CABG Hx of cholecystectomy Social History Social History Social History: She still continues to live at [facility]. 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
[2020-01-10 21:41] LABS: Basophils Percent Auto 0.6 % (0.2-1.2); Eosinophils Absolute Auto 0.2 K/mm3 (0-0.3); Hematocrit 39.6 % (37.0-47.0); Hemoglobin 12.9 g/dL (12.0-15.0); Immature Granulocyte Absolute 0.03 K/mm3 (0.00-0.031); Immature Granulocyte Percent A 0.4 % (0-0.5); Lymphocytes Absolute Auto 1.28 K/mm3 (0.9-3.2); Lymphocytes Percent Auto 18.9 % (18.3-44.2); Mean Corpuscular HGB Conc 32.6 g/dl (32-36); Mean Corpuscular Hemoglobin 32.9 pg (26-34); Mean Platelet Volume 9.9 fl (7.4-10.4); Monocytes Absolute Auto 0.5 K/mm3 (0.1-0.6); Monocytes Percent Auto 6.8 % (2.6-8.5); Neutrophils Absolute Auto 4.8 K/mm3 (1.3-6.7); Neutrophils Percent Auto 70.3 % (45.5-73.1); Platelet Count Result 169 k/mm3 (150-375); Red Blood Count 3.92 M/mm3 (4.2-5.4); Red Cell Distribution Width 14.5 % (11.5-14.5); White Blood Count 6.8 K/mm3 (4.5-10.0)
[2020-01-10 21:43] VITALS: BP 113/66; PULSE 62; RESP 22; TEMP 36.4; O2SAT 100
[2020-01-10] MEDS: SODIUM CHLORIDE 0.9% IV 1,000 ML 999 ML IV CONT (21:46)
--- NOTE | 2020-01-10 21:48 | ECG_ITS ---
Measurements Intervals [place] Rate: 62 P: [place]: 0 QRS: -66 QRSD: 122 T: 191 QT: 467 QTc: 477 Interpretive Statements ATRIAL FIBRILLATION LEFT BUNDLE BRANCH BLOCK ST-T WAVE ABNORMALITY IN LATERAL LEADS- CONSIDER ISCHEMIA BASELINE ARTIFACT- I, II, III, AVR, AVL, AVF, V2, V4-V6 ABNORMAL ECG Electronically Signed On 01-11-2020 6:58:44 CDT by Reinaldo Crowell D.O.
[2020-01-10 21:51] LABS: INR 0.9; Partial Thromboplastin Time 25.2 SECONDS (22.3-36.8); Prothrombin Time 12.3 Seconds (11.1-14.7)
[2020-01-10 21:53] LABS: Alanine Aminotransferase 52 U/L (4-35); Albumin Level 3.8 g/dL (3.5-5.1); Alkaline Phosphatase 85 U/L (38-126); Aspartate Amino Transferase 38 U/L (14-36); Bilirubin,Total 0.5 mg/dL (0.2-1.3); Blood Urea Nitrogen 26 mg/dL (7-17); Calcium 8.4 mg/dL (8.4-10.2); Carbon Dioxide 28 mmol/L (22-30); Chloride 102 mmol/L (98-107); Estimated Glomerular Filt Rate 36; Glucose 193 mg/dL (65-105); Lipase 151 U/L (23-300); Potassium 3.4 mmol/L (3.4-5.0); Sodium 137 mmol/L (137-145)
[2020-01-10 22:05] LABS: NT Pro B Type Natriuretic Pept 10100 PG/ML (5-100); Troponin I 0.013 ng/mL (0.000-0.034)
[2020-01-10 22:10] LABS: Lactic Acid Reflex 1.8 mmol/L (0.7-2.1)
[2020-01-10 22:12] VITALS: BP 119/63; PULSE 84; RESP 16; TEMP 36.8; O2SAT 100
[2020-01-10 22:50] LABS: Add Urine Microscopic? YES; Appearance Urine Clear (Clear); Bilirubin Urine Negative (Negative); Blood Urine Negative (Negative); Color Urine Colorless (Yellow); Glucose Urine UA 1+ mg/dL (Negative); Ketones Urine Negative (Negative); Leukocyte Esterase Ur Trace LEU/UL (Negative); Mucus Urine Rare /lpf; Nitrate Urine Negative (Negative); Protein Urine Negative (Negative); RBC Urine 0-2 /hpf (0-2); Specific Grav Ur 1.009 (1.001-1.035); Squamous Epithelial Cell Urine Occasional /hpf (Few); Urobilinogen Urine Negative mg/dL (<2.0)
[2020-01-10 23:13] VITALS: BP 123/70; PULSE 84; RESP 16; TEMP 36.2; O2SAT 100
[2020-01-10 23:29] VITALS: BP 119/67; PULSE 76; RESP 19; TEMP 36.8; O2SAT 100
== END 2020-01-10 23:30 | disposition home or self-care (01) ==
PROVIDERS: Emergency Provider Emergency Medicine; PCP Internal Medicine
DX: E86.0 Dehydration (principal); R78.89 Finding of other specified substances, not normally found in blood; I48.91 Unspecified atrial fibrillation; F41.9 Anxiety disorder, unspecified; I13.0 Hypertensive heart and chronic kidney disease with heart failure and stage 1 through stage 4 chronic kidney disease, or unspecified chronic kidney disease; N18.3 Chronic kidney disease, stage 3 (moderate); I50.32 Chronic diastolic (congestive) heart failure; F32.9 Major depressive disorder, single episode, unspecified; I25.10 Atherosclerotic heart disease of native coronary artery without angina pectoris; E03.9 Hypothyroidism, unspecified; I25.2 Old myocardial infarction
CPT/HCPCS: 36415; 70450; 71046; 80053; 81001; 83605; 83690; 83880; 84484; 85025; 85610; 85730; 87040; 87086; 93005; 96360; 99284; J7030

== ENCOUNTER 2020-03-02 21:10 | Emergency (ER) | payer MEDICARE, SELFPAY ==
--- NOTE | ~2020-03-02 | XR_ITS ---
XR wrist LT min 3V 03/02/2020 21:59 Indication: Left wrist pain after fall Procedure: 4 views left wrist Comparison: No prior studies for comparison. Findings: Generalized osteopenia. There is an impaction fracture of the distal radial metaphysis with dorsal angulation. No significant displacement. Ulnar styloid avulsion fracture. There are degenerat rodríguez changes of the first finger including the first CMC, MCP and IP joints. Impression: 1: Nondisplaced impaction fracture distal radial metaphysis with mild dorsal angulation. 2: Ulnar styloid avulsion fracture. Reviewed, dictated and finalized at location A. Impression: 1: Nondisplaced impaction fracture distal radial metaphysis with mild dorsal an gulation. 2: Ulnar styloid avulsion fracture.
--- NOTE | ~2020-03-02 | CT_ITS ---
EXAMINATION: CT BRAIN W/O DATE: 03/02/2020 22:00 INDICATION: Status post fall. Headache. Head injury. TECHNIQUE: Computed tomography (CT) of the head was performed without intravenous contrast. The dose- length product was 605.33 mGy-cm. The mA was adjusted according to patient size. Iterative reconstruc tion technique was employed. COMPARISON: CT dated 01/10/2020 FINDINGS: Normal brain parenchymal volume for age. Normal novoa-white differentiation. No acute intrac ranial hemorrhage, infarction, mass or mass effect. Generalized atrophy. There are scattered moderate periventricular and subcortical white matter changes, most likely related to small vessel ischemic d isease (microangiopathy). There is intracranial atherosclerosis. No ventriculomegaly or midline shift. Midline sagittal images demonstrate a normal corpus callosum, c raniovertebral junction and sella turcica. Basilar cisterns are patent. Paranasal sinuses and mastoids are pneumatized. No depressed skull fractures. There are scattered sca lp nodules, likely chronic sebaceous cysts. IMPRESSION: 1. No acute intracranial abnormality. 2: Chronic age-related findings. Reviewed, dictated and finalized at location A.
--- NOTE | ~2020-03-02 | CT_ITS ---
EXAMINATION: CT cervical spine wo con DATE: 03/02/2020 22:00 INDICATION: Status post fall. Head injury. TECHNIQUE: Computed tomography (CT) of the cervical spine was performed without intravenous contrast. The dose-length product was 98 mGy-cm. The mA was adjusted according to patient size. Iterative gunjan nstruction technique was employed. COMPARISON: No prior studies for comparison. FINDINGS: No acute fracture, subluxation or dislocation. There is disc narrowing and endplate degener ative change at C5-6 and C6-7. Odontoid process within normal limits. Normal cervical lordosis. Parav ertebral soft tissues are unremarkable. Thyroid gland is enlarged, incompletely visualized. Lung apic es are normal. IMPRESSION: 1. No acute abnormality of the cervical spine. Reviewed, dictated and finalized at location A.
[2020-03-02 21:11] VITALS: BP 133/75; PULSE 84; RESP 18; TEMP 36.7; O2SAT 96
--- NOTE | 2020-03-02 21:41 | ED.FALL ---
HPI - Fall General Chief Complaint: Fall Stated Complaint: fall Time Seen by Provider: 03/02/20 21:17 Source: patient Mode of arrival: ambulatory Limitations: no limitations History of Present Illness HPI Narrative: Patient is an 79-year-old female who presents to the emergency department via EMS from [facility] after sustaining a fall. Patient had turned off the lights to go to bed and misjudged how close she was to her bed. Patient went to get in bed and fell on the floor as she was too far away from the bed. She struck her right forehead on the carpeted floor. She also injured her left wrist. Patient denies any other injuries or complaints. Patient has bruises on her left foot, both knees, and left elbow that are old from previous injuries. She is denying any complaints to those areas at this time. MD complaint: fall Onset (ago): hour(s) Fall from: standing Fall witnessed: no Place fall occurred: home Loss of consciousness: none Prolonged down time: no Symptoms prior to fall: none Context: other (Turned out lights to go to bed and was further from bed than she thought) Location of injury: head and other (Left wrist) Associated symptoms (after fall): denies Related Data Home Medications Medication Instructions Recorded Confirmed clopidogrel 75 mg PO DAILY 09/08/19 12/19/19 diazepam [Valium] 10 mg PO PRN PRN 09/08/19 12/19/19 levothyroxine 100 mcg PO DAILY 09/08/19 12/19/19 potassium chloride 20 meq PO DAILY 09/08/19 12/19/19 simvastatin 20 mg PO HS 09/08/19 12/19/19 venlafaxine 75 mg PO QACLUNCH 09/08/19 12/19/19 Eliquis 2.5 mg PO Q12-24H 11/11/19 12/19/19 amiodarone [Pacerone] 200 mg PO DAILY 11/11/19 12/19/19 amlodipine [Norvasc] 10 mg PO DAILY 11/11/19 12/19/19 furosemide 40 mg PO BID 11/11/19 12/19/19 metoprolol tartrate 100 mg PO Q12H 11/11/19 12/19/19 oxycodone-acetaminophen [Percocet] 1 tablet PO Q6H PRN 12/13/19 12/19/19 irbesartan 300 mg PO DAILY 12/19/19 12/19/19 Allergies Allergy/AdvReac Type Severity Reaction Status Date / Time Actonel Allergy Unknown Uncoded 02/20/20 16:07 Norvasc Allergy Unknown Uncoded 02/20/20 16:07 Remeron Allergy Unknown Uncoded 02/20/20 16:07 Review of Systems Review of Systems: All systems reviewed & are unremarkable except as noted in HPI and below PMFSH Past Medical History Medical History Acute respiratory failure with hypoxia Anxiety Aortic stenosis Severe Atrial flutter Burst fracture of lumbar vertebra Chronic diastolic heart failure Chronic renal failure, stage 3 (moderate) Congestive heart failure Mixed Coronary artery disease Depression DVT prophylaxis Foot fracture, right History of basal cell carcinoma History of stent insertion of renal artery Hyperlipidemia Hypertension Hypokalemia Hypothyroidism Hypoxemia Influenza A Myocardial infarction Osteoporosis PAF (paroxysmal atrial fibrillation) Cardioverted Persistent atrial fibrillation Pneumonia Renal artery stenosis Occluded right renal artery Surgical History Surgical History H/O hysterectomy for benign disease History of cardiac catheterization History of renal stent Hx of CABG Hx of cholecystectomy Social History Social History Social History: She still continues to live at [facility]. 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
[2020-03-02 23:46] VITALS: BP 132/77; PULSE 88; RESP 18; O2SAT 95
== END 2020-03-02 23:47 | disposition home or self-care (01) ==
PROVIDERS: Emergency Provider Emergency Medicine; PCP Internal Medicine
DX: S59.292A Other physeal fracture of lower end of radius, left arm, initial encounter for closed fracture (principal); S52.612A Displaced fracture of left ulna styloid process, initial encounter for closed fracture; S00.83XA Contusion of other part of head, initial encounter; F41.9 Anxiety disorder, unspecified; I35.0 Nonrheumatic aortic (valve) stenosis; I48.92 Unspecified atrial flutter; Z79.01 Long term (current) use of anticoagulants; I25.10 Atherosclerotic heart disease of native coronary artery without angina pectoris; I13.0 Hypertensive heart and chronic kidney disease with heart failure and stage 1 through stage 4 chronic kidney disease, or unspecified chronic kidney disease; N18.3 Chronic kidney disease, stage 3 (moderate); I50.32 Chronic diastolic (congestive) heart failure; F32.9 Major depressive disorder, single episode, unspecified; Z85.828 Personal history of other malignant neoplasm of skin; E78.5 Hyperlipidemia, unspecified; E03.9 Hypothyroidism, unspecified; I25.2 Old myocardial infarction; M81.0 Age-related osteoporosis without current pathological fracture; I48.0 Paroxysmal atrial fibrillation; Z95.1 Presence of aortocoronary bypass graft; Z77.22 Contact with and (suspected) exposure to environmental tobacco smoke (acute) (chronic); W06.XXXA Fall from bed, initial encounter
CPT/HCPCS: 29125; 70450; 72125; 73110; 99284; A4565

== ENCOUNTER 2020-04-15 04:49 | Emergency (ER) | payer MEDICARE, SELFPAY ==
--- NOTE | ~2020-04-15 | CT_ITS ---
EXAMINATION: CT brain wo con DATE: 04/15/2020 05:38 INDICATION: Head injury. TECHNIQUE: Computed tomography (CT) of the head was performed without intravenous contrast. The mA wa s adjusted according to patient size. Iterative reconstruction technique was employed. The dose-lengt h product was 605.33 mGy-cm. COMPARISON: Head CT 03/02/2020 FINDINGS: There are scattered areas of low attenuation in the cerebral white matter. There is no intr acranial hemorrhage, acute infarction, or abnormal intracranial mass lesion. The ventricles are daniel l in size. The paranasal sinuses are clear. The mastoid air cells are normal. The orbits are normal. There are calcified masses in the scalp, likely old hematomas. IMPRESSION: 1. Stable moderate nonspecific cerebral white matter disease, which likely represents chronic small v essel ischemic disease. Reviewed, dictated and finalized at location A. IMPRESSION: 1. Stable moderate nonspecific cerebral white matter disease, which likely repr esents chronic small vessel ischemic disease.
--- NOTE | ~2020-04-15 | CT_ITS ---
EXAMINATION: CT cervical spine wo con DATE: 04/15/2020 05:38 INDICATION: Head injury. TECHNIQUE: Computed tomography (CT) of the cervical spine was performed without intravenous contrast. Automated exposure control and iterative reconstruction technique were employed. The dose-length pro duct was 96.02 mGy-cm. COMPARISON: CT cervical spine 03/02/2020 FINDINGS: There is a multinodular goiter. There is 9 degrees dextrocurvature of cervical spine. Verte bral body heights are normal. There is mildly decreased disc height at C3-C4 and C4-C5 and severely d ecreased disc height at C5-C6 and C6-C7. The following disc levels are specifically discussed: C2-C3: There is no uncovertebral joint osteoarthritis. There is severe right and moderate left facet joint osteoarthritis. There is no neural foraminal stenosis. There is no central canal stenosis. C3-C4: There is no uncovertebral joint osteoarthritis. There is mild right and moderate left facet surendra int osteoarthritis. There is no neural foraminal stenosis. There is no central canal stenosis. C4-C5: There is mild bilateral uncovertebral joint osteoarthritis. There is severe right and moderate left facet joint osteoarthritis. There is mild right neural foraminal stenosis. There is no central canal stenosis. C5-C6: There is severe bilateral uncovertebral joint osteoarthritis. There is no facet joint osteoart hritis. There is mild bilateral neural foraminal stenosis. There is mild central canal stenosis. C6-C7: There is moderate right and severe left uncovertebral joint osteoarthritis. There is mild bila teral facet joint osteoarthritis. There is mild left neural foraminal stenosis. There is mild central canal stenosis. C7-T1: There is no uncovertebral joint osteoarthritis. There is mild bilateral facet joint osteoarthr itis. There is no neural foraminal stenosis. There is no central canal stenosis. IMPRESSION: 1. No fracture. 2. Severe cervical spondylosis. Reviewed, dictated and finalized at location A.
--- NOTE | ~2020-04-15 | XR_ITS ---
EXAMINATION: XR wrist RT 2V DATE: 04/15/2020 06:04 INDICATION: Right wrist pain. Fall. TECHNIQUE: 2 views of right wrist were obtained. COMPARISON: None. FINDINGS: There is a fracture deformity of distal radial metaphysis. There is 7 degrees posterior til t of the distal articular surface. There is a nondisplaced avulsion fracture of the ulnar styloid. Th ere is mild osteoarthritis of first and second metacarpophalangeal joints. IMPRESSION: 1. Age-indeterminant fracture deformity of distal radial metaphysis. 2. Avulsion fracture of ulnar styloid. Reviewed, dictated and finalized at location A.
[2020-04-15 04:47] VITALS: BP 170/102; PULSE 95; RESP 18; TEMP 36.2; O2SAT 95
--- NOTE | 2020-04-15 04:51 | ED.FALL ---
HPI - Fall General Chief Complaint: Fall <Marisol Oliver MD - Last Filed: 04/15/20 11:55> Stated Complaint: FALL/WRIST PAIN <Marisol Oliver MD - Last Filed: 04/15/20 11:55> Time Seen by Provider: 04/15/20 04:49 <Marisol Oliver MD - Last Filed: 04/15/20 11:55> History of Present Illness HPI Narrative: Patient presents via EMS for fall in her home last night. She fell onto tile floor onto her right hand hitting her head. She denies loss of consciousness or head injury. She had significant pain in her right wrist which was diagnosed as a fracture by Dr. Maurice. Her splint had already been applied, before he left, and she had been discharged. Then the son said he needed her to go to rehab not independent living, so the discharge was canceled and the caseworker intake were called. We are now waiting for a chart to be generated so that an application can be placed to [facility]. Initially the patient was reluctant to have another evaluation. She says she wants to return to her independent living and not go to rehab, but her son insists, because she has been falling and having significant injuries. She has canceled 3 appointments with the orthopedic surgeon Dr. Reilly. Her cast on the left hand has blood at the proximal end, and bruising on the index finger with redness around the index knuckle. Patient denies having been sick for the last week or 2. She complains of back pain high-end low, but not on exam only with movement. She says she does not have a problem with her memory but on the orientation questions said she was at [facility], and then changed it quickly to the hospital. <Marisol Oliver MD - Last Filed: 04/15/20 11:55> 80 yo female BIBEMS from [facility] living at [facility] after a fall. She reportedly had 2 falls this evening. In the first fall she struck her head. EMS responded and she refused transport. In the second fall she landed on the left side. She reports that she did not hit her head. She says that she hurts everywhere except her left cheek. When asked for more details she becomes defensive and refuses to answer. <Bill Maurice MD - Last Filed: 04/15/20 20:51> Related Data Home Medications: Home Medications Medication Instructions Recorded Confirmed clopidogrel 75 mg PO DAILY 09/08/19 12/19/19 diazepam [Valium] 10 mg PO PRN PRN 09/08/19 12/19/19 levothyroxine 100 mcg PO DAILY 09/08/19 12/19/19 potassium chloride 20 meq PO DAILY 09/08/19 12/19/19 simvastatin 20 mg PO HS 09/08/19 12/19/19 venlafaxine 75 mg PO QACLUNCH 09/08/19 12/19/19 Eliquis 2.5 mg PO Q12-24H 11/11/19 12/19/19 amiodarone [Pacerone] 200 mg PO DAILY 11/11/19 12/19/19 amlodipine [Norvasc] 10 mg PO DAILY 11/11/19 12/19/19 furosemide 40 mg PO BID 11/11/19 12/19/19 metoprolol tartrate 100 mg PO Q12H 11/11/19 12/19/19 oxycodone-acetaminophen [Percocet] 1 tablet PO Q6H PRN 12/13/19 12/19/19 irbesartan 300 mg PO DAILY 12/19/19 12/19/19 <Marisol Oliver MD - Last Filed: 04/15/20 11:55> Allergies/Adverse Reactions: Allergies Allergy/AdvReac Type Severity Reaction Status Date / Time amlodipine [From Norvasc] Allergy Unknown Verified 04/15/20 11:47 mirtazapine [From Remeron] Allergy Unknown Verified 04/15/20 11:48 risedronate sodium Allergy Unknown Verified 04/15/20 11:47 [From Actonel] <Marisol Oliver MD - Last Filed: 04/15/20 11:55> Review of Systems Review of Systems: Narrative: CONSTITUTIONAL: Denies fever, chills, or sweats. EYES: Denies visual changes, redness, or discharge. ENT: Denies rhinorrhea, congestion, sore throat, or otalgia. CARDIOVASCULAR: Denies chest pain, palpitations, or edema. RESPIRATORY: Denies cough or dyspnea. GASTROINTESTINAL: Denies abdominal pain, nausea, vomiting, or diarrhea. GENITOURINARY: Denies dysuria or hematuria. SKIN: Denies rash or itching. MUSCULOSKELETAL: She has back pain and right wrist pain. NEUROLOGIC: Denies headache, numbness, or weakness. .
[2020-04-15 07:36] VITALS: BP 144/90; PULSE 96; RESP 17; O2SAT 97
--- NOTE | 2020-04-15 08:09 | PC.NURSE ---
Pt verbalizes frustration with wait time and wanting to be discharge. This RN verbalized to pt waiting on Care Coordination to come for eval for rehab.
--- NOTE | 2020-04-15 08:31 | PC.NURSE ---
Care Coordination in room w/ pt for Rehab eval.
[2020-04-15 08:32] VITALS: BP 160/100; PULSE 93; RESP 14; O2SAT 94
[2020-04-15 09:39] VITALS: BP 151/102; PULSE 94; RESP 15; O2SAT 96
--- NOTE | 2020-04-15 09:51 | PCCCNOTE ---
Opp called regarding potential for Assisted Living or Rehab. Requested information faxed to [facility]. Information relayed to patient and her son, Burke who is at bedside.
--- NOTE | 2020-04-15 10:47 | PC.NURSE ---
Pt remains in room, waiting for placement w/ Rehab facility. Care coordination discussed POC w/ pt and pt son.
[2020-04-15 11:39] VITALS: BP 155/93; PULSE 95; RESP 17; O2SAT 98
--- NOTE | 2020-04-15 11:40 | PC.NURSE ---
Per Care Coordination, pt has bed at [facility], Room 631. Attempted to call and give report to [phone] x 2 and left VM in order to give report.
--- NOTE | 2020-04-15 11:52 | PC.NURSE ---
Called Rehab at [facility] and gave report to Candice VAZ.
== END 2020-04-15 12:04 ==
PROVIDERS: Emergency Provider Emergency Medicine; PCP Internal Medicine
DX: S59.292A Other physeal fracture of lower end of radius, left arm, initial encounter for closed fracture (principal); S52.612A Displaced fracture of left ulna styloid process, initial encounter for closed fracture; S00.83XA Contusion of other part of head, initial encounter; I48.19 Other persistent atrial fibrillation; I35.0 Nonrheumatic aortic (valve) stenosis; I13.0 Hypertensive heart and chronic kidney disease with heart failure and stage 1 through stage 4 chronic kidney disease, or unspecified chronic kidney disease; N18.3 Chronic kidney disease, stage 3 (moderate); I50.40 Unspecified combined systolic (congestive) and diastolic (congestive) heart failure; I25.10 Atherosclerotic heart disease of native coronary artery without angina pectoris; E78.5 Hyperlipidemia, unspecified; I25.2 Old myocardial infarction; M81.0 Age-related osteoporosis without current pathological fracture; F41.9 Anxiety disorder, unspecified; F32.9 Major depressive disorder, single episode, unspecified; Z79.01 Long term (current) use of anticoagulants; Z85.828 Personal history of other malignant neoplasm of skin; M47.812 Spondylosis without myelopathy or radiculopathy, cervical region; R90.82 White matter disease, unspecified; W19.XXXA Unspecified fall, initial encounter
CPT/HCPCS: 29125; 70450; 72125; 73100; 99284; A9270

== ENCOUNTER 2020-05-04 20:52 | Inpatient (IN) | payer MEDICARE, SELFPAY ==
--- NOTE | ~2020-05-04 | CT_ITS ---
EXAMINATION: CT brain wo con DATE: 05/04/2020 21:58 INDICATION: Altered mental status TECHNIQUE: Computed tomography (CT) of the head was performed without intravenous contrast. Sagittal and coronal reconstructions were performed. The mA was adjusted according to patient size. Iterative reconstruction technique was employed. The dose-length product was 605.33 mGy-cm. COMPARISON: head CT dated 04/15/2020 FINDINGS: No acute intracranial hemorrhage, acute infarction or abnormal extra axial fluid collection. There is moderate scattered white matter hypoattenuation consistent with chronic small vessel ischemic diseas e. Symmetric prominence of the sulci consistent with mild age-appropriate diffuse cerebral volume los s. Ventricles are normal and symmetric. No mass/mass effect. The orbits, paranasal sinuses and masto id air cells are normal. IMPRESSION: 1. No acute intracranial process. 2. No interval change in age-related changes including mild diffuse volume loss and moderate scattere d white matter hypoattenuation consistent with chronic small vessel ischemic disease. Reviewed, dictated and finalized at location A. IMPRESSION: 1. No acute intracranial process. 2. No interval change in age-related changes including mild diffuse volume loss and moderate scattered white matter hypoattenuation consistent with chronic sm all vessel ischemic disease.
--- NOTE | ~2020-05-04 | XR_ITS ---
XR chest 1V portable DATE: 05/04/2020 21:31 INDICATION: Transient alteration of awareness TECHNIQUE: Portable upright AP chest on 05/04/2020 at 2132 hours COMPARISON: 01/10/2020 FINDINGS: Cardiomegaly. Status post sternotomy. Interval probable aortic valve replacement since 01/09; recommend correlation with surgical history. Aortic calcification. There is mild infiltrate, atelectasis and/or scarring in both lower lung zones. The lungs otherwise a re clear. No pulmonary vascular congestion or any significant pleural effusion or any pneumothorax. Status post cholecystectomy. Diffuse osteopenia. IMPRESSION: Cardiomegaly Status post sternotomy, probable aortic valve replacement; recommend correlation with surgical histor y Aortic atherosclerosis Mild infiltrate, atelectasis and/or scarring in the lower lung zones Reviewed, dictated and finalized at location A. IMPRESSION: Cardiomegaly Status post sternotomy, probable aortic valve replacement; recommend correlatio n with surgical history Aortic atherosclerosis Mild infiltrate, atelectasis and/or scarring in the lower lung zones
[2020-05-04 20:53] VITALS: BP 137/85; PULSE 98; RESP 18; TEMP 36.3; O2SAT 99
--- NOTE | 2020-05-04 20:58 | ECG_ITS ---
Measurements Intervals [place] Rate: 92 P: [place]: 0 QRS: -72 QRSD: 153 T: 144 QT: 420 QTc: 520 Interpretive Statements ATRIAL FLUTTER/TACHYCARDIA LEFT AXIS DEVIATION LEFT BUNDLE BRANCH BLOCK BASELINE ARTIFACT- I, II, III, AVR, AVL, AVF, V1-V6 ABNORMAL ECG Electronically Signed On 05-04-2020 21:31:08 CDT by Reinaldo Crowell D.O.
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
[2020-05-04 21:26] LABS: Basophils Percent Auto 0.5 % (0.2-1.2); Eosinophils Absolute Auto 0.1 K/mm3 (0-0.3); Eosinophils Percent Auto 0.9 % (0-4.4); Hematocrit 37.5 % (37.0-47.0); Hemoglobin 11.6 g/dL (12.0-15.0); Immature Granulocyte Absolute 0.04 K/mm3 (0.00-0.031); Immature Granulocyte Percent A 0.5 % (0-0.5); Lymphocytes Absolute Auto 0.83 K/mm3 (0.9-3.2); Lymphocytes Percent Auto 10.9 % (18.3-44.2); Mean Corpuscular HGB Conc 30.9 g/dl (32-36); Mean Corpuscular Hemoglobin 30.1 pg (26-34); Mean Corpuscular Volume 97.4 fl (80-100); Mean Platelet Volume 10.1 fl (7.4-10.4); Monocytes Absolute Auto 0.8 K/mm3 (0.1-0.6); Monocytes Percent Auto 10.9 % (2.6-8.5); Neutrophils Absolute Auto 5.8 K/mm3 (1.3-6.7); Neutrophils Percent Auto 76.3 % (45.5-73.1); Nucleated Red Blood Cells Perc 0.3 % (0.0-0.2); Platelet Count Result 263 k/mm3 (150-375); Red Blood Count 3.85 M/mm3 (4.2-5.4); Red Cell Distribution Width 18.5 % (11.5-14.5); White Blood Count 7.6 K/mm3 (4.5-10.0)
[2020-05-04 21:34] LABS: INR 1.9; Prothrombin Time 21.3 Seconds (11.1-14.7)
[2020-05-04 21:36] LABS: Lactic Acid Reflex 1.4 mmol/L (0.7-2.1); Potassium 4.4 mmol/L (3.4-5.0)
[2020-05-04 21:41] LABS: Alanine Aminotransferase 107 U/L (4-35); Albumin Level 3.7 g/dL (3.5-5.1); Alkaline Phosphatase 166 U/L (38-126); Aspartate Amino Transferase 49 U/L (14-36); Bilirubin,Total 1.1 mg/dL (0.2-1.3); Blood Urea Nitrogen 31 mg/dL (7-17); Calcium 8.3 mg/dL (8.4-10.2); Carbon Dioxide 23 mmol/L (22-30); Chloride 103 mmol/L (98-107); Estimated CRCL calculation 23 ml/min; Estimated Glomerular Filt Rate 33; Glucose 171 mg/dL (65-105); Sodium 138 mmol/L (137-145)
[2020-05-04 21:53] LABS: Add Urine Microscopic? YES; Appearance Urine Clear (Clear); Bilirubin Urine Negative (Negative); Blood Urine Negative (Negative); Color Urine Yellow (Yellow); Glucose Urine UA Negative (Negative); Ketones Urine Negative (Negative); Leukocyte Esterase Ur Negative LEU/UL (Negative); Mucus Urine Rare /lpf; Nitrate Urine Negative (Negative); Protein Urine 1+ mg/dL (Negative); RBC Urine 0-2 /hpf (0-2); Specific Grav Ur 1.016 (1.001-1.035); Squamous Epithelial Cell Urine Rare /hpf (Few); Urobilinogen Urine Negative mg/dL (<2.0); WBC Urine 0-3 /hpf
[2020-05-04 22:37] VITALS: BP 143/87; PULSE 87; RESP 17; O2SAT 96
[2020-05-04] MEDS: ACETAMINOPHEN 325 MG TABLET 650 MG PO (22:37)
[2020-05-04 23:15] VITALS: BP 130/76; PULSE 92; RESP 18; TEMP 36.2; O2SAT 97; BMI 20.2
--- NOTE | 2020-05-04 23:43 | ADMGEN ---
This patient, Olivia Horn, was admitted to 3 [facility] Room 322-01 at 2304. Patient/family oriented to hospital policies and general routines including ID bracelet, bed and alarms, visiting hours, pain management, procedures, bathroom and other care routines, personal items, smoking policy, room service/diet, and visiting hours. Valuables list has been completed. Information on how to activate the Rapid Response Team has been discussed. Patient/Family are encouraged to report perceived risks to care and to ask questions if they do not understand what they are told or what they should do.
--- NOTE | 2020-05-04 23:48 | PM.IMHP ---
H&P: HPI History of Present Illness Chief complaint: Combative behavior at the senior living. Narrative: This is an 80 year old female with known chronic diastolic heart failure, Chronic renal failure stage 3, Atrial flutter/fibrillation on chronic Eliquis therapy who presented to the hospital with a complaint of hallucinations and combative behavior at the senior living today. Apparently the patient was seeing snakes in her room and attempted to hit the staff. The patient has been on Keflex after being diagnosed with a recent culture proven UTI. She was evaluated in the ER and apparently was refusing to answer the questions of the ER provider. The patient was admitted to the hospital for encephalopathy. On my encounter with the patient she is alert, oriented x 4 and answering all of my questions appropriately. She admits that she has had numerous recent falls and currently has her right wrist in a cast secondary to a fracture. The patient has no complaints on my encounter with her and she denies any fevers, chills, coughing, sore throat, headache, blurry vision, chest pain, shortness of breath, abdominal pain, dysuria, hematuria, nausea, vomiting, diarrhea, rectal bleeding or LE edema. Review of Systems Review of Systems: All systems reviewed & are unremarkable except as noted in HPI and below PMFSH Past Medical History Medical History Acute respiratory failure with hypoxia Anxiety Aortic stenosis Severe Atrial flutter Burst fracture of lumbar vertebra Chronic diastolic heart failure Chronic renal failure, stage 3 (moderate) Congestive heart failure Mixed Coronary artery disease Depression DVT prophylaxis Foot fracture, right History of basal cell carcinoma History of stent insertion of renal artery Hyperlipidemia Hypertension Hypokalemia Hypothyroidism Hypoxemia Influenza A Myocardial infarction Osteoporosis PAF (paroxysmal atrial fibrillation) Cardioverted Persistent atrial fibrillation Pneumonia Renal artery stenosis Occluded right renal artery Surgical History Surgical History H/O hysterectomy for benign disease History of cardiac catheterization History of renal stent Hx of CABG Hx of cholecystectomy Family History Family History Mother Heart failure Hypertension Father Heart failure Hypertension Sibling Heart failure Diabetes mellitus Sibling Heart failure Sibling Alzheimer disease Social History Social History Social History: She still continues to live at [facility]. She is she had 5 children and was a homemaker.She is a full code Smoking status: Never smoker Tobacco type: cigarettes Second hand tobacco smoke exposure: Yes Alcohol intake: never Substance use: never Substance use type: does not use Additional living arrangements comments: [facility] Gender identity (if verbalized by the patient): Female Spiritual care concerns: No Agree to blood products: Yes Meds Home Medications and Allergies Home Medications Medication Instructions Recorded Confirmed Type levothyroxine 88 mcg PO DAILY 09/08/19 05/04/20 History simvastatin 20 mg PO HS 09/08/19 05/04/20 History Eliquis 2.5 mg PO BID 11/11/19 05/04/20 History furosemide 40 mg PO DAILY 11/11/19 05/04/20 History Milk Of Magnesia Concentrated 30 ml PO Q2-6H PRN 05/04/20 05/04/20 History acetaminophen 500 mg PO Q6H PRN 05/04/20 05/04/20 History ascorbic acid (vitamin C) 1 g PO DAILY 05/04/20 05/04/20 History cephalexin [Keflex] 500 mg PO QID 05/04/20 05/04/20 History lidocaine 1 patch TOPICAL DAILY 05/04/20 05/04/20 History losartan 50 mg PO DAILY 05/04/20 05/04/20 History metoprolol tartrate 12.5 mg PO Q12H 05/04/20 05/04/20 Histor
[2020-05-05] VITALS (7 sets, daily range): BP systolic 124–132; BP diastolic 71–78; PULSE 80–104; RESP 16–18; TEMP 36.3–36.5; O2SAT 97–99
[2020-05-05] MEDS: METOPROLOL TARTRATE 12.5 MG TABLET PO ×3 (01:23→21:30)
[2020-05-05] MEDS: SIMVASTATIN 20 MG TABLET PO ×2 (01:23→21:24)
[2020-05-05] MEDS: APIXABAN 2.5 MG TABLET PO ×3 (01:23→19:25)
[2020-05-05] MEDS: ACETAMINOPHEN 500 MG TABLET PO ×2 (03:27→21:23)
[2020-05-05 06:29] LABS: Basophils Absolute Auto 0.1 K/mm3 (0.0-0.1); Basophils Percent Auto 0.7 % (0.2-1.2); Eosinophils Absolute Auto 0.2 K/mm3 (0-0.3); Eosinophils Percent Auto 2.8 % (0-4.4); Hematocrit 34.5 % (37.0-47.0); Hemoglobin 10.4 g/dL (12.0-15.0); Immature Granulocyte Absolute 0.02 K/mm3 (0.00-0.031); Immature Granulocyte Percent A 0.3 % (0-0.5); Lymphocytes Absolute Auto 0.86 K/mm3 (0.9-3.2); Mean Corpuscular HGB Conc 30.1 g/dl (32-36); Mean Corpuscular Hemoglobin 29.7 pg (26-34); Mean Corpuscular Volume 98.6 fl (80-100); Mean Platelet Volume 10.3 fl (7.4-10.4); Monocytes Absolute Auto 0.8 K/mm3 (0.1-0.6); Monocytes Percent Auto 10.7 % (2.6-8.5); Neutrophils Absolute Auto 5.3 K/mm3 (1.3-6.7); Neutrophils Percent Auto 73.5 % (45.5-73.1); Platelet Count Result 235 k/mm3 (150-375); Red Cell Distribution Width 18.6 % (11.5-14.5); White Blood Count 7.2 K/mm3 (4.5-10.0)
[2020-05-05] MEDS: CEPHALEXIN 250 MG CAPSULE PO ×3 (06:29→21:24)
[2020-05-05] MEDS: LEVOTHYROXINE SODIUM 88 MCG TABLET PO (06:29)
[2020-05-05 06:42] LABS: Blood Urea Nitrogen 27 mg/dL (7-17); Calcium 8.1 mg/dL (8.4-10.2); Carbon Dioxide 26 mmol/L (22-30); Chloride 103 mmol/L (98-107); Estimated CRCL calculation 26 ml/min; Estimated Glomerular Filt Rate 43; Glucose 122 mg/dL (65-105); Potassium 3.6 mmol/L (3.4-5.0); Sodium 137 mmol/L (137-145)
[2020-05-05] MEDS: ASCORBIC ACID 500 MG TABLET 1000 MG PO (08:35)
[2020-05-05] MEDS: MULTIVITAMINS /C LUTEIN (CENTRUM SILVER) TABLET *BKC 1 TAB PO (08:36)
[2020-05-05] MEDS: LOSARTAN POTASSIUM 50 MG TABLET PO (08:36)
[2020-05-05] MEDS: FUROSEMIDE 40 MG TABLET PO (08:36)
[2020-05-05] MEDS: LIDOCAINE 5% PATCH 1 PATCH TOPICAL (08:47)
--- NOTE | 2020-05-05 10:22 | PM.IMPN ---
Progress Note: A&P Assessment and Plan (1) Hallucination, visual: Code(s): R44.1 - Visual hallucinations Status: Acute Assessment and Plan: Patient brought in from sn[facility] per the reports because she was seeing snakes in her room and attempting to hit [place] staff. No issues with hallucinations or combative behaviors today. CT brain - per ER provider showed no acute process, final report is pending. (2) Chronic diastolic heart failure: Code(s): I50.32 - Chronic diastolic (congestive) heart failure Status: Chronic Assessment and Plan: Appears compensated. Continue home medications. (3) PAF (paroxysmal atrial fibrillation): Code(s): I48.0 - Paroxysmal atrial fibrillation Status: Chronic Assessment and Plan: Rate controlled on home amiodarone. On systemic anticoagulation with Eliquis. (4) Hypertension: Qualifiers: Hypertension type: essential hypertension Qualified Code(s): I10 - Essential (primary) hypertension Code(s): I10 - Essential (primary) hypertension Status: Chronic Assessment and Plan: Last BP 124/71. Maintained on home Cozaar, metoprolol, lasix. Monitor BP and adjust treatment as needed. (5) Hypothyroidism: Qualifiers: Hypothyroidism type: acquired Qualified Code(s): E03.9 - Hypothyroidism, unspecified Code(s): E03.9 - Hypothyroidism, unspecified Status: Chronic Assessment and Plan: Continue home levothyroxine. (6) Hyperlipidemia: Qualifiers: Hyperlipidemia type: unspecified Qualified Code(s): E78.5 - Hyperlipidemia, unspecified Code(s): E78.5 - Hyperlipidemia, unspecified Status: Chronic Assessment and Plan: Home statin therapy. (7) Transaminitis: Code(s): R74.0 - Nonspecific elevation of levels of transaminase and lactic acid dehydrogenase [LDH] Status: Chronic Assessment and Plan: Chronic based on review of previous labs. Bili is normal. No abdominal pain. (8) UTI (urinary tract infection): Qualifiers: Hematuria presence: without hematuria Urinary tract infection type: acute cystitis Qualified Code(s): N30.00 - Acute cystitis without hematuria Code(s): N39.0 - Urinary tract infection, site not specified Status: Acute Assessment and Plan: Records show she is currently being treated with oral Keflex started 05/01 at the [facility] for UTI. UA is clear now but she can continue Keflex to complete the course. (9) Chronic kidney disease, stage 3: Code(s): N18.3 - Chronic kidney disease, stage 3 (moderate) Status: Acute Assessment and Plan: Baseline creatinine appears between 1.3 to 1.7 on review of old labs. Cr at baseline. Will monitor. Subjective Date/time seen: 05/05/20 10:00 Interval history: Ms. Horn is an 80yo F admitted due to combative behavior at the snf. It was noted she had recently began treatment with oral Keflex at the snf for UTI. She is sleeping and wakes to answer some of my questions but not all. Review of systems is limited but she is able to appropriately answer orientation questions. Review of Systems Review of Systems: ROS unobtainable: Yes unobtainable due to medical condition (Decreased cooperation) Exam Narrative: Exam Narrative: General: Elderly female resting in bed in no acute distress. HEENT: Normocephalic, scattered ecchymosis to right frontal area, EOMI, oral mucosa moist. Cardiovascular: Rate is normal, rhythm is irregular. Respiratory: Lungs clear to auscultation all hanley. Non-labored breathing. Tolerating room air. Abdomen: Soft, non-tender, non-distende
[2020-05-05] MEDS: AMIODARONE HCL 200 MG TABLET PO (14:19)
[2020-05-05] MEDS: VENLAFAXINE HCL 75 MG TABLET PO (14:20)
[2020-05-05] MEDS: ALPRAZolam 0.25 MG TABLET PO (17:45)
--- NOTE | 2020-05-05 19:38 | PC.NURSE ---
Pt became agitated this afternoon approx 1700. Staff attempted deescalation, began having pt one on one with bed side sitter.Prn Xanax 0.25mg po was given. Pt is resting now and is much more calm.
[2020-05-06 06:00] VITALS: BP 141/81; PULSE 87; RESP 16; TEMP 36.7; O2SAT 94
[2020-05-06] MEDS: LEVOTHYROXINE SODIUM 88 MCG TABLET PO (06:21)
[2020-05-06] MEDS: CEPHALEXIN 250 MG CAPSULE PO (06:22)
[2020-05-06] MEDS: ACETAMINOPHEN 500 MG TABLET PO ×2 (06:22→21:23)
[2020-05-06 06:35] LABS: Blood Urea Nitrogen 19 mg/dL (7-17); Calcium 8.2 mg/dL (8.4-10.2); Carbon Dioxide 27 mmol/L (22-30); Chloride 102 mmol/L (98-107); Estimated CRCL calculation 35 ml/min; Estimated Glomerular Filt Rate 60; Glucose 104 mg/dL (65-105); Magnesium 1.8 mg/dL (1.6-2.3); Potassium 3.2 mmol/L (3.4-5.0); Sodium 135 mmol/L (137-145)
[2020-05-06 08:00] VITALS: PULSE 87; RESP 16; O2SAT 94
[2020-05-06] MEDS: MULTIVITAMINS /C LUTEIN (CENTRUM SILVER) TABLET *BKC 1 TAB PO (08:34)
[2020-05-06] MEDS: ASCORBIC ACID 500 MG TABLET 1000 MG PO (08:34)
[2020-05-06] MEDS: AMIODARONE HCL 200 MG TABLET PO (08:35)
[2020-05-06] MEDS: FUROSEMIDE 40 MG TABLET PO (08:36)
[2020-05-06] MEDS: APIXABAN 2.5 MG TABLET PO ×2 (08:36→15:25)
[2020-05-06] MEDS: LOSARTAN POTASSIUM 50 MG TABLET PO (08:37)
[2020-05-06] MEDS: METOPROLOL TARTRATE 12.5 MG TABLET PO ×2 (08:37→21:23)
[2020-05-06] MEDS: CLOPIDOGREL BISULFATE 75 MG TABLET PO (08:38)
[2020-05-06] MEDS: POTASSIUM CHLORIDE 20 MEQ TABLET.ER PO (08:38)
[2020-05-06] MEDS: ALPRAZolam 0.25 MG TABLET PO (08:42)
[2020-05-06] MEDS: LIDOCAINE 5% PATCH 1 PATCH TOPICAL (09:06)
[2020-05-06] MEDS: VENLAFAXINE HCL XR 75 MG CAP.ER.24H PO (09:06)
[2020-05-06] MEDS: POTASSIUM CHLORIDE 20 MEQ TABLET 40 MEQ PO (09:06)
--- NOTE | 2020-05-06 09:26 | PM.IMPN ---
Progress Note: A&P Assessment and Plan (1) Hallucination, visual: Code(s): R44.1 - Visual hallucinations Status: Acute Assessment and Plan: Patient brought in from [facility] per the reports because she was seeing snakes in her room and attempting to hit [place] staff. No issues with hallucinations or combative behaviors today. CT brain shows no acute findings. Seems she would benefit from psych follow up. Just waiting on COVID testing to discharge her back to [facility]. Can discharge 05/06/20 if COVID is negative depending on how late [place] will take her back. (2) Anxiety and depression: Code(s): F41.9 - Anxiety disorder, unspecified; F32.9 - Major depressive disorder, single episode, unspecified Status: Acute Assessment and Plan: Resume her home valium today. She got agitated yesterday 1700 per nursing then calmed down after dose of Xanax. She wants to get back on her valium today since she has taken it for years. Stable today. (3) Chronic diastolic heart failure: Code(s): I50.32 - Chronic diastolic (congestive) heart failure Status: Chronic Assessment and Plan: Appears compensated. Continue home regimen with beta-blockade and lasix. (4) PAF (paroxysmal atrial fibrillation): Code(s): I48.0 - Paroxysmal atrial fibrillation Status: Chronic Assessment and Plan: Rate controlled on home amiodarone. On systemic anticoagulation with Eliquis. (5) Hypertension: Qualifiers: Hypertension type: essential hypertension Qualified Code(s): I10 - Essential (primary) hypertension Code(s): I10 - Essential (primary) hypertension Status: Chronic Assessment and Plan: Last BP 138/80. Maintained on home Cozaar, metoprolol, lasix. Monitor BP and adjust treatment as needed. (6) Hypothyroidism: Qualifiers: Hypothyroidism type: acquired Qualified Code(s): E03.9 - Hypothyroidism, unspecified Code(s): E03.9 - Hypothyroidism, unspecified Status: Chronic Assessment and Plan: Continue home levothyroxine. (7) Hyperlipidemia: Qualifiers: Hyperlipidemia type: unspecified Qualified Code(s): E78.5 - Hyperlipidemia, unspecified Code(s): E78.5 - Hyperlipidemia, unspecified Status: Chronic Assessment and Plan: Home statin therapy. (8) Transaminitis: Code(s): R74.0 - Nonspecific elevation of levels of transaminase and lactic acid dehydrogenase [LDH] Status: Chronic Assessment and Plan: Chronic based on review of previous labs. Bili is normal. No abdominal pain. (9) UTI (urinary tract infection): Qualifiers: Urinary tract infection type: acute cystitis Hematuria presence: without hematuria Qualified Code(s): N30.00 - Acute cystitis without hematuria Code(s): N39.0 - Urinary tract infection, site not specified Status: Acute Assessment and Plan: Records show she was treated oral Keflex at the [facility] for UTI. (10) Chronic kidney disease, stage 3: Code(s): N18.3 - Chronic kidney disease, stage 3 (moderate) Status: Acute Assessment and Plan: Stable. Cr 0.9 today and baseline appears between 1.3 to 1.7 on review of old labs. Subjective Date/time seen: 05/06/20 09:15 Interval history: Ms. Horn is an 80yo F admitted due to combative behavior at the correction. It was noted she had recently began treatment with oral Keflex at the [facility] for UTI. She is awake, alert and cooperative today. No issues with behavior today. She denies chest pain or shortness of breath. No cough. Tolerating oral intake without
[2020-05-06 14:00] VITALS: BP 138/80; PULSE 85; RESP 16; TEMP 36.7; O2SAT 95
[2020-05-06] MEDS: diazePAM 5 MG TABLET 10 MG PO ×2 (15:25→21:23)
[2020-05-06 19:46] VITALS: BP 142/86; PULSE 100; RESP 16; TEMP 36.6; O2SAT 90
[2020-05-06 20:02] LABS: SARS-CoV-2 RNA PCR Negative
[2020-05-06 21:23] VITALS: PULSE 100
[2020-05-06] MEDS: SIMVASTATIN 20 MG TABLET PO (21:23)
[2020-05-07 06:00] VITALS: BP 155/85; PULSE 74; RESP 16; TEMP 36.6; O2SAT 92
[2020-05-07] MEDS: ACETAMINOPHEN 500 MG TABLET PO (06:29)
[2020-05-07] MEDS: LEVOTHYROXINE SODIUM 88 MCG TABLET PO (06:29)
[2020-05-07 06:43] LABS: Hematocrit 33.5 % (37.0-47.0); Hemoglobin 10.6 g/dL (12.0-15.0)
--- NOTE | 2020-05-07 06:57 | PM.DS ---
DS: Admitting Diagnosis Admitting Diagnosis Admitting Diagnosis: Visual hallucinations DS: Discharge Diagnosis Discharge Diagnosis (1) Acute metabolic encephalopathy: Code(s): G93.41 - Metabolic encephalopathy Status: Acute Assessment and Plan: -----initial altered mental status likely due to combination of dehydration, UTI, antibiotics, and pain medication. Would consider decreasing pain medication as much as possible. She had no additional hallucinations while hospitalized and was back to her normal condition. (2) Hallucination, visual: Code(s): R44.1 - Visual hallucinations Status: Resolved Assessment and Plan: The patient is alert and oriented x 4 and back to baseline. She is not hallucinating and currently is not combative. (3) Chronic diastolic heart failure: Code(s): I50.32 - Chronic diastolic (congestive) heart failure Status: Chronic Assessment and Plan: Compensated. Monitor Is and Os, daily weights. (4) Hypertension: Qualifiers: Hypertension type: essential hypertension Qualified Code(s): I10 - Essential (primary) hypertension Code(s): I10 - Essential (primary) hypertension Status: Chronic Assessment and Plan: Continue home medications (5) Hypothyroidism: Qualifiers: Hypothyroidism type: acquired Qualified Code(s): E03.9 - Hypothyroidism, unspecified Code(s): E03.9 - Hypothyroidism, unspecified Status: Chronic Assessment and Plan: Levothyroxine adjusted. See below (6) Hyperlipidemia: Qualifiers: Hyperlipidemia type: unspecified Qualified Code(s): E78.5 - Hyperlipidemia, unspecified Code(s): E78.5 - Hyperlipidemia, unspecified Status: Chronic Assessment and Plan: Continue home medications (7) PAF (paroxysmal atrial fibrillation): Code(s): I48.0 - Paroxysmal atrial fibrillation Status: Chronic Assessment and Plan: Continue Eliquis therapy. Rate controlled at this time. Continue beta mansi. (8) Transaminitis: Code(s): R74.0 - Nonspecific elevation of levels of transaminase and lactic acid dehydrogenase [LDH] Status: Chronic Assessment and Plan: Chronic. Ammonia normal. Hepatitis screen negative (9) UTI (urinary tract infection): Qualifiers: Hematuria presence: without hematuria Urinary tract infection type: acute cystitis Qualified Code(s): N30.00 - Acute cystitis without hematuria Code(s): N39.0 - Urinary tract infection, site not specified Status: Acute Assessment and Plan: Continue oral keflex [facility] the [facility] for [facility]TI and complete course. (10) Elevated serum free T4 level: Code(s): R79.89 - Other specified abnormal findings of blood chemistry Status: Acute Assessment and Plan: Patient's T4 is 3.12 and TSH is undetectable. She is on 88 mcg levothyroxine. She was discharged before this lab came back and I called the [facility] and spoke to her nurse. She is to hold levothyroxine for 1 week and restart at 50 mcg thereafter. She should get a TSH in 6 weeks. Nursing staff read this back. Likely the cause of her anxiety and slight tachycardia. No tremors or evidence of thyroid storm on exam. DS: Summary Hospital Course Reason for hospitalization: Hallucinations, combativeness Hospital Course: Patient is an 80-year-old female who was recently diagnosed with a UTI who presented emergency room for combativeness and hallucinations. Temperature 97.4?, pulse 90, respiratory rate 18, blood pressure 137/85, pulse ox 99 on room air. White count within normal limits. Slightly elevated kidney function with a BUN of 31 and creatinine 1.5. Chest x-ray showed cardiomegaly with mild infiltrate/atelectasis in lower lungs. Patient had no cough or shortness of breath. CT head showed no acute process. EKG showed AFib, which is chronic and she is
[2020-05-07 06:59] LABS: Blood Urea Nitrogen 12 mg/dL (7-17); Calcium 8.6 mg/dL (8.4-10.2); Carbon Dioxide 31 mmol/L (22-30); Chloride 98 mmol/L (98-107); Estimated CRCL calculation 39 ml/min; Estimated Glomerular Filt Rate > 60; Glucose 144 mg/dL (65-105); Magnesium 1.7 mg/dL (1.6-2.3); Sodium 134 mmol/L (137-145)
--- NOTE | 2020-05-07 09:26 | WPDCDIQUERY2 ---
CDI Query Clarification Request - EDP documented, question component of metabolic encephalopathy with recent UTI on Keflex as well as component of narcotic med and Valium . - Hallucinations,visual documented by hospitalist Please clarify the cause/suspected cause for the symptom of visual hallucinations.
[2020-05-07 09:58] LABS: Ammonia < 9 umol/L (9-30)
[2020-05-07 10:00] VITALS: BP 153/102; PULSE 108; RESP 16; O2SAT 92
[2020-05-07] MEDS: POTASSIUM CHLORIDE 20 MEQ TABLET PO (10:02)
[2020-05-07] MEDS: ASCORBIC ACID 500 MG TABLET 1000 MG PO (10:02)
[2020-05-07] MEDS: VENLAFAXINE HCL XR 75 MG CAP.ER.24H PO (10:03)
[2020-05-07] MEDS: FUROSEMIDE 40 MG TABLET PO (10:03)
[2020-05-07 10:04] VITALS: PULSE 108
[2020-05-07] MEDS: AMIODARONE HCL 200 MG TABLET PO (10:04)
[2020-05-07] MEDS: MULTIVITAMINS /C LUTEIN (CENTRUM SILVER) TABLET *BKC 1 TAB PO (10:04)
[2020-05-07] MEDS: METOPROLOL TARTRATE 12.5 MG TABLET PO (10:04)
[2020-05-07] MEDS: CLOPIDOGREL BISULFATE 75 MG TABLET PO (10:04)
[2020-05-07] MEDS: APIXABAN 2.5 MG TABLET PO (10:05)
[2020-05-07] MEDS: POTASSIUM CHLORIDE 20 MEQ TABLET.ER PO (10:05)
[2020-05-07] MEDS: LOSARTAN POTASSIUM 50 MG TABLET PO (10:05)
[2020-05-07] MEDS: LIDOCAINE 5% PATCH 1 PATCH TOPICAL (10:06)
[2020-05-07] MEDS: diazePAM 5 MG TABLET 10 MG PO (10:06)
[2020-05-07 10:48] LABS: Thyroid Stimulating Hormone Reflex < 0.015 uIU/mL (0.465-4.68)
[2020-05-07 10:49] LABS: Hepatitis B Surface Antigen Negative (Negative)
[2020-05-07 10:55] LABS: HAV RESULT Negative (Negative); Hepatitis B Core IgM Result Negative (Negative)
[2020-05-07 11:07] LABS: Hepatitis C Virus Antibody Negative (Negative)
[2020-05-07 12:23] LABS: Free T4 Free Thyroxine Reflex 3.12 ng/dL (0.78-2.19)
== END 2020-05-07 10:40 | DRG 71 ==
LOC: ANHED 22:48 → ANH3MEDSUR 22:50
PROVIDERS: Physician Assistant; Admitting Provider Family Medicine; Emergency Provider Emergency Medicine; PCP Internal Medicine; Visit Provider Physician Assistant
DX: G93.41 Metabolic encephalopathy (principal); N39.0 Urinary tract infection, site not specified; I13.0 Hypertensive heart and chronic kidney disease with heart failure and stage 1 through stage 4 chronic kidney disease, or unspecified chronic kidney disease; I50.32 Chronic diastolic (congestive) heart failure; R44.1 Visual hallucinations; T36.1X5A Adverse effect of cephalosporins and other beta-lactam antibiotics, initial encounter; T50.995A Adverse effect of other drugs, medicaments and biological substances, initial encounter; E86.0 Dehydration; N18.3 Chronic kidney disease, stage 3 (moderate); Z11.59 Encounter for screening for other viral diseases; E03.9 Hypothyroidism, unspecified; I48.0 Paroxysmal atrial fibrillation; I11.0 Hypertensive heart disease with heart failure; E78.5 Hyperlipidemia, unspecified; R74.0 Nonspecific elevation of levels of transaminase and lactic acid dehydrogenase [LDH]; R79.89 Other specified abnormal findings of blood chemistry; F41.9 Anxiety disorder, unspecified; F32.9 Major depressive disorder, single episode, unspecified; I35.0 Nonrheumatic aortic (valve) stenosis; I25.10 Atherosclerotic heart disease of native coronary artery without angina pectoris; M81.0 Age-related osteoporosis without current pathological fracture; R00.0 Tachycardia, unspecified; I70.1 Atherosclerosis of renal artery; Z85.828 Personal history of other malignant neoplasm of skin; I25.2 Old myocardial infarction; Z79.01 Long term (current) use of anticoagulants; Z95.1 Presence of aortocoronary bypass graft; Z90.49 Acquired absence of other specified parts of digestive tract
CPT/HCPCS: 36415; 51701; 70450; 71045; 80048; 80053; 80074; 81001; 82140; 83605; 83735; 84439; 84443; 85014; 85018; 85025; 85610; 85730; 87040; 87635; 93005; 99285; A9270; C9803; G0378; U0003

== ENCOUNTER 2020-07-27 10:45 | Observation (INO) | payer MEDICARE, SELFPAY ==
[2020-07-27] VITALS (10 sets, daily range): BP systolic 131–158; BP diastolic 87–112; PULSE 58–97; RESP 16–18; TEMP 36.6; O2SAT 94–100; BMI 22.2
--- NOTE | ~2020-07-27 | CT_ITS ---
EXAMINATION: CT brain wo con DATE: 07/27/2020 12:00 INDICATION: Head injury status post fall. TECHNIQUE: Computed tomography (CT) of the head was performed without intravenous contrast. The dose- length product was 605.33 mGy-cm. Automated exposure control and iterative reconstruction technique w ere employed. COMPARISON: CT dated 05/04/2020 FINDINGS: There is a right frontal scalp hematoma. No underlying skull fracture. Generalized atrophy. There are scattered mild periventricular and subcortical white matter changes, most likely related t o small vessel ischemic disease (microangiopathy). No acute intracranial hemorrhage, infarction, mass or mass effect. IMPRESSION: 1. No acute intracranial abnormality. 2: Chronic age-related findings. Reviewed, dictated and finalized at location A.
--- NOTE | ~2020-07-27 | CT_ITS ---
EXAMINATION: CT cervical spine wo con DATE: 07/27/2020 12:00 INDICATION: Neck pain after fall TECHNIQUE: Computed tomography (CT) of the cervical spine was performed without intravenous contrast. The dose-length product was 114 mGy-cm. Automated exposure control and iterative reconstruction tech nique were employed. COMPARISON: 04/15/2020 FINDINGS: Normal cervical alignment. There is disc narrowing and endplate degenerative change at C5-6 and C6-7. There is multilevel uncovertebral and facet hypertrophy. Odontoid process within normal li mits. No acute fracture or traumatic malalignment. No significant paraspinal soft tissue abnormality. Odontoid process within normal limits. There is multinodular goiter of the thyroid gland. There is m ild levocurvature of the cervical spine. Lung apices are unremarkable. IMPRESSION: 1. No acute abnormality of the cervical spine. 2: Moderate cervical spondylosis. Reviewed, dictated and finalized at location A.
--- NOTE | 2020-07-27 11:30 | ECG_ITS ---
Measurements Intervals [place] Rate: 90 P: TN: 0 QRS: -46 QRSD: 153 T: 171 QT: 419 QTc: 515 Interpretive Statements ATRIAL FLUTTER/TACHYCARDIA LEFT AXIS DEVIATION LEFT BUNDLE BRANCH BLOCK ST-T WAVE ABNORMALITY IN LATERAL LEADS- CONSIDER ISCHEMIA ABNORMAL ECG Electronically Signed On 07-27-2020 17:00:49 CDT by Reinaldo Crowell D.O.
--- NOTE | 2020-07-27 11:33 | ED.FALL ---
HPI - Fall General Chief Complaint: Fall Stated Complaint: fall Time Seen by Provider: 07/27/20 11:03 Source: patient Mode of arrival: EMS Limitations: no limitations History of Present Illness HPI Narrative: Patient is an 80-year-old female brought in by EMS due to a ground-level fall at home. Patient states that she fell hit her head on the floor denies any LOC, denies neck pain, denies back pain, chest pain or any extremity pain. Pt doesn't know why she fell. Patient denies any symptoms prior to the fall. Patient states her pain level currently is mild, frontal head. Related Data Home Medications Medication Instructions Recorded Confirmed levothyroxine 88 mcg PO DAILY 09/08/19 05/04/20 simvastatin 20 mg PO HS 09/08/19 05/04/20 Eliquis 2.5 mg PO BID 11/11/19 05/04/20 furosemide 40 mg PO DAILY 11/11/19 05/04/20 Complete Multivitamin-Mineral 1 tablet PO DAILY 05/04/20 05/04/20 Milk Of Magnesia Concentrated 30 ml PO Q2-6H PRN 05/04/20 05/04/20 acetaminophen 500 mg PO Q6H PRN 05/04/20 05/04/20 ascorbic acid (vitamin C) 1 g PO DAILY 05/04/20 05/04/20 lidocaine 1 patch TOPICAL DAILY 05/04/20 05/04/20 losartan 50 mg PO DAILY 05/04/20 05/04/20 metoprolol tartrate 12.5 mg PO Q12H 05/04/20 05/04/20 amiodarone 200 mg PO DAILY 05/05/20 05/05/20 clopidogrel 75 mg PO DAILY 05/05/20 05/05/20 potassium chloride 20 meq PO DAILY 05/05/20 05/05/20 venlafaxine 75 mg PO DAILY 05/05/20 05/05/20 Allergies Allergy/AdvReac Type Severity Reaction Status Date / Time amlodipine [From Norvasc] Allergy Unknown Unknown Verified 07/27/20 11:12 mirtazapine [From Remeron] Allergy Unknown Unknown Verified 07/27/20 11:12 risedronate sodium Allergy Unknown Unknown Verified 07/27/20 11:12 [From Actonel] cinnamon Allergy Unknown Verified 07/27/20 11:12 garlic Allergy Unknown Verified 07/27/20 11:12 prochlorperazine Allergy Unknown Verified 07/27/20 11:12 Sulfa (Sulfonamide Allergy Unknown Verified 07/27/20 11:12 Antibiotics) Review of Systems Review of Systems: All systems reviewed & are unremarkable except as noted in HPI and below Constitutional: Constitutional: Denies body ache(s), Denies chills, Denies excessive sweating, Denies fatigue, Denies fever(s), Denies headache(s), Denies lethargy, Denies malaise, Denies weakness and Denies weight loss Eyes: Eyes: Denies blurry vision, Denies change in vision and Denies loss of vision ENT: Denies dizziness, Denies ear discharge, Denies headache(s), Denies lip swelling, Denies epistaxis, Denies nasal congestion, Denies neck pain, Denies throat swelling and Denies tongue swelling Cardiovascular: Cardiovascular: Denies chest pain, Denies chest pain at rest, Denies chest pain with activity, Denies diaphoresis, Denies rapid heart rate, Denies edema, Denies irregular heart rhythm, Denies lightheadedness, Denies palpitations, Denies dyspnea and Denies dyspnea on exertion Respiratory: Respiratory: Denies chest congestion, Denies cough, Denies hemoptysis, Denies dyspnea and Denies dyspnea on exertion Gastrointestinal: Gastrointestinal: Denies abdominal pain, Denies melena, Denies hematochezia, Denies diarrhea, Denies nausea, Denies vomiting and Denies hematemesis Musculoskeletal: Musculoskeletal: Denies abnormal gait, Denies deformity, Denies joint swelling, Denies limited range of motion, Denies neck pain and Denies numbness Neurologic: Denies Abnormal speech present, Denies abnormal gait, Denies confusion, Denies dizziness, Denies headache(s), Denies focal weakness, Denies loss of vision, Denies numbness, Denies Other visual disturbances, Denies Sensory deficit (Neuro) and Denies weakness Psychiatric: Psychiatric: Denies confusion, Denies depression, Denies auditory hallucinations, Denies homicidal ideation and Denies suicidal ideation Endocrine: Endocrine: Denies cold intolerance, Denies excessive sweating, Denies fatigue, Denies heat intolerance and Denies palpitations Hematologic/Lymphatic: Hematologic/Lym
[2020-07-27 12:00] LABS: Basophils Percent Auto 0.3 % (0.2-1.2); Eosinophils Percent Auto 0.5 % (0-4.4); Hematocrit 36.4 % (37.0-47.0); Hemoglobin 11.4 g/dL (12.0-15.0); Immature Granulocyte Absolute 0.04 K/mm3 (0.00-0.031); Immature Granulocyte Percent A 0.5 % (0-0.5); Lymphocytes Absolute Auto 0.78 K/mm3 (0.9-3.2); Lymphocytes Percent Auto 10.3 % (18.3-44.2); Mean Corpuscular HGB Conc 31.3 g/dl (32-36); Mean Corpuscular Hemoglobin 28.7 pg (26-34); Mean Corpuscular Volume 91.7 fl (80-100); Mean Platelet Volume 9.9 fl (7.4-10.4); Monocytes Absolute Auto 0.6 K/mm3 (0.1-0.6); Monocytes Percent Auto 8.4 % (2.6-8.5); Neutrophils Absolute Auto 6.1 K/mm3 (1.3-6.7); Nucleated Red Blood Cells Perc 0.3 % (0.0-0.2); Platelet Count Result 244 k/mm3 (150-375); Red Blood Count 3.97 M/mm3 (4.2-5.4); White Blood Count 7.6 K/mm3 (4.5-10.0)
[2020-07-27 12:05] LABS: Add Urine Microscopic? YES; Appearance Urine Clear (Clear); Bacteria Urine Trace /hpf; Bilirubin Urine Negative (Negative); Blood Urine Negative (Negative); Color Urine Yellow (Yellow); Glucose Urine UA Negative (Negative); Ketones Urine Negative (Negative); Leukocyte Esterase Ur Negative LEU/UL (Negative); Mucus Urine Rare /lpf; Nitrate Urine Negative (Negative); Protein Urine 2+ mg/dL (Negative); RBC Urine 0-2 /hpf (0-2); Specific Grav Ur 1.013 (1.001-1.035); Urobilinogen Urine Negative mg/dL (<2.0); WBC Urine 0-3 /hpf
[2020-07-27] MEDS: ACETAMINOPHEN 325 MG TABLET 650 MG PO (12:08)
[2020-07-27 12:10] LABS: Anion Gap 10 mmol/L (8-16); Blood Urea Nitrogen 27 mg/dL (7-17); Calcium 8.5 mg/dL (8.4-10.2); Carbon Dioxide 22 mmol/L (22-30); Chloride 99 mmol/L (98-107); Estimated CRCL calculation 23 ml/min; Estimated Glomerular Filt Rate 36; Glucose 169 mg/dL (65-105); Potassium 4.3 mmol/L (3.4-5.0); Sodium 131 mmol/L (137-145)
[2020-07-27] MEDS: LACTATED RINGERS 1,000 ML 1000 ML IV CONT (13:48)
--- NOTE | 2020-07-27 15:36 | ADMGEN ---
This patient, Olivia Horn, was admitted to Medical Room 246-. Patient/family oriented to hospital policies and general routines including ID bracelet, bed and alarms, visiting hours, pain management, procedures, bathroom and other care routines, personal items, smoking policy, room service/diet, and visiting hours. Valuables list has been completed. Information on how to activate the Rapid Response Team has been discussed. Patient/Family are encouraged to report perceived risks to care and to ask questions if they do not understand what they are told or what they should do.
[2020-07-27] MEDS: LACTATED RINGERS 1,000 ML 90 ML IV CONT (17:02)
[2020-07-27] MEDS: NAPROXEN 500 MG TABLET PO (17:28)
--- NOTE | 2020-07-27 18:00 | PC.NURSE ---
Called [facility] to verify patients medication list 4 times. Spoke with the RN on that unit each time in regards to her medications, to verify that the list we received was correct.
--- NOTE | 2020-07-27 20:44 | PM.IMHP ---
H&P: HPI History of Present Illness Date/Time: 07/27/20 20:44 Chief complaint: ACUTE KIDNEY INJURY Narrative: Olivia Horn is a 80 year old female who resides at [facility]. The patient has had multiple falls in the past. She resides home alone. The patient came in today due to ground level fall. She fell and hit her head but did not lose consciousness. She has a hematoma to the frontal part of her head. Her lips are dry. Her creatinine is 1.4. It looks like she may have chronic renal failure with a creatinine anywhere from 1.[address] up to 1.9. Her head CT was read as no acute intracranial abnormality chronic age-related findings. It looks like patient is on Plavix but I do not see where she is on any blood thinners anymore. Her urine is negative. CT of the cervical spine was read as no acute abnormality of the cervical spine. Moderate cervical spondylosis. The patient was started on IV fluids. Date of service 07/27/2020 Review of Systems Review of Systems: All systems reviewed & are unremarkable except as noted in HPI and below Constitutional: Constitutional: Reports as per HPI and Reports no additional constitutional complaints Eyes: Eyes: Reports as per HPI and Reports no additional eye complaints ENT: Reports system reviewed and no additional complaints, except as documented and Reports Normal hearing present Cardiovascular: Cardiovascular: Reports no additional cardiovascular complaints Respiratory: Respiratory: Reports no additional respiratory complaints and Reports no additional respiratory complaints Gastrointestinal: Gastrointestinal: Reports as per HPI and Reports no additional gastrointestinal complaints Musculoskeletal: Musculoskeletal: Reports no additional musculoskeletal complaints Integumentary/Breasts: Skin/Breast: Reports system reviewed and no additional complaints, except as docu and Reports as per HPI Neurologic: Reports system reviewed and no additional complaints, except as documented, Reports as per HPI and Reports Normal hearing present Psychiatric: Psychiatric: Reports no additional psychiatric complaints and Reports as per HPI Endocrine: Endocrine: Reports no additional endocrine complaints Hematologic/Lymphatic: Hematologic/Lymphatic: Reports no additional hematologic/lymphatic complaints Allergic/Immunologic: Allergic/Immunologic: Reports no additional allergic/immunologic complaints [facility] Past Medical History Medical History (Updated 07/27/20 @ 20:48 by Deysi Saenz NP) Acute metabolic encephalopathy Acute respiratory failure with hypoxia Anxiety Aortic stenosis Severe Atrial flutter Burst fracture of lumbar vertebra Chronic diastolic heart failure Chronic renal failure, stage 3 (moderate) Congestive heart failure Mixed Coronary artery disease Depression DVT prophylaxis Foot fracture, right Hallucination, visual History of basal cell carcinoma History of stent insertion of renal artery Hyperlipidemia Hypertension Hypokalemia Hypothyroidism Hypoxemia Influenza A Left wrist fracture Myocardial infarction Osteoporosis PAF (paroxysmal atrial fibrillation) Cardioverted Persistent atrial fibrillation Pneumonia Renal artery stenosis Occluded right renal artery UTI (urinary tract infection) Surgical History Surgical History H/O hysterectomy for benign disease History of cardiac catheterization History of renal stent Hx of CABG Hx of cholecystectomy Family History Family History Mother Heart failure Hypertension Father Heart failure Hypertension Sibling Heart failure Diabetes mellitus Sibling Heart failure Sibling Alzheimer disease Social History Social History (Updated 07/27/20 @ 20:49 by Deysi Saenz NP) Social History: She still continues to live at [facility]. She
[2020-07-27] MEDS: METOPROLOL TARTRATE 12.5 MG TABLET PO (21:32)
[2020-07-27] MEDS: hydrALAZINE HCL 25 MG TABLET PO (21:32)
[2020-07-27] MEDS: diazePAM (*CRX) 5 MG TABLET 10 MG PO (21:32)
[2020-07-27] MEDS: ACETAMINOPHEN 500 MG TABLET PO (21:39)
[2020-07-28] VITALS (15 sets, daily range): BP systolic 134–157; BP diastolic 88–105; PULSE 63–107; RESP 14–18; TEMP 36.3–36.7; O2SAT 95–96
[2020-07-28] MEDS: LIDOCAINE 5% PATCH 1 PATCH TOPICAL (00:43)
[2020-07-28] MEDS: LACTATED RINGERS 1,000 ML 90 ML IV CONT ×2 (04:01→17:02)
[2020-07-28] MEDS: ACETAMINOPHEN 500 MG TABLET PO ×2 (04:01→10:45)
[2020-07-28 06:02] LABS: Basophils Percent Auto 0.5 % (0.2-1.2); Eosinophils Absolute Auto 0.2 K/mm3 (0-0.3); Hematocrit 34.5 % (37.0-47.0); Hemoglobin 10.9 g/dL (12.0-15.0); Immature Granulocyte Absolute 0.05 K/mm3 (0.00-0.031); Immature Granulocyte Percent A 0.6 % (0-0.5); Lymphocytes Absolute Auto 1.03 K/mm3 (0.9-3.2); Lymphocytes Percent Auto 12.8 % (18.3-44.2); Mean Corpuscular HGB Conc 31.6 g/dl (32-36); Mean Corpuscular Hemoglobin 28.5 pg (26-34); Mean Corpuscular Volume 90.3 fl (80-100); Mean Platelet Volume 9.8 fl (7.4-10.4); Monocytes Absolute Auto 0.8 K/mm3 (0.1-0.6); Monocytes Percent Auto 9.7 % (2.6-8.5); Neutrophils Percent Auto 74.4 % (45.5-73.1); Nucleated Red Blood Cells Perc 0.4 % (0.0-0.2); Platelet Count Result 226 k/mm3 (150-375); Red Blood Count 3.82 M/mm3 (4.2-5.4)
[2020-07-28 06:15] LABS: Alanine Aminotransferase 78 U/L (4-35); Albumin Level 3.1 g/dL (3.5-5.1); Alkaline Phosphatase 173 U/L (38-126); Anion Gap 7 mmol/L (8-16); Aspartate Amino Transferase 59 U/L (14-36); Blood Urea Nitrogen 25 mg/dL (7-17); Calcium 8.5 mg/dL (8.4-10.2); Carbon Dioxide 22 mmol/L (22-30); Chloride 102 mmol/L (98-107); Estimated Glomerular Filt Rate 39; Glucose 142 mg/dL (65-105); Magnesium 1.6 mg/dL (1.6-2.3); Potassium 4.7 mmol/L (3.4-5.0); Sodium 131 mmol/L (137-145)
[2020-07-28] MEDS: LEVOTHYROXINE SODIUM 25 MCG TABLET PO (06:29)
[2020-07-28] MEDS: hydrALAZINE HCL 25 MG TABLET PO ×3 (06:29→18:05)
[2020-07-28] MEDS: CLOPIDOGREL BISULFATE 75 MG TABLET PO (08:08)
[2020-07-28] MEDS: AMIODARONE HCL 200 MG TABLET PO (08:08)
[2020-07-28] MEDS: ATORVASTATIN 10 MG TABLET PO (08:08)
[2020-07-28] MEDS: ASCORBIC ACID 500 MG TABLET 1000 MG PO (08:08)
[2020-07-28] MEDS: VENLAFAXINE HCL 75 MG TABLET PO (08:08)
[2020-07-28] MEDS: THERAPEUTIC MULTIVITAMINS/MINERALS TAB (*BKC) 1 TABLET PO (08:08)
[2020-07-28] MEDS: METOPROLOL TARTRATE 12.5 MG TABLET PO (08:09)
--- NOTE | 2020-07-28 13:35 | PM.IMPN ---
Progress Note: A&P Assessment and Plan (1) Acute on chronic kidney failure: Code(s): N17.9 - Acute kidney failure, unspecified; N18.9 - Chronic kidney disease, unspecified Status: Acute Assessment and Plan: Baseline appears to be 1.1-1.3. At presentation, creatinine was 1.4. Acute increase felt to be secondary to dehydration as patient had poor p.o. intake. Improved with gentle IV fluids and Cr is 1.3 today. Discontinue IV fluids to avoid fluid overload given history of CHF as patient has been adequately rehydrated and tolerating PO intake hold furosemide Monitor renal function closely. Renally dose medications and avoid nephrotoxic agents. (2) Chronic diastolic heart failure: Code(s): I50.32 - Chronic diastolic (congestive) heart failure Status: Chronic Assessment and Plan: Patient appears euvolemic at this time and is clinically compensated. discontinue IV fluids as above continue metoprolol resume losartan (3) Anxiety and depression: Code(s): F41.9 - Anxiety disorder, unspecified; F32.9 - Major depressive disorder, single episode, unspecified Status: Acute Assessment and Plan: Mood is stable at this time continue venlafaxine and diazepam (4) Head injury, acute: Qualifiers: Encounter type: initial encounter Qualified Code(s): S09.90XA - Unspecified injury of head, initial encounter Code(s): S09.90XA - Unspecified injury of head, initial encounter Status: Acute Assessment and Plan: She has a right small frontal scalp hematoma as evident on head CT and on exam. Head CT was negative for any acute abnormalities and no intracranial hemorrhage. She is at her baseline mental status. No additional workup is required (5) Hypothyroidism: Qualifiers: Hypothyroidism type: acquired Qualified Code(s): E03.9 - Hypothyroidism, unspecified Code(s): E03.9 - Hypothyroidism, unspecified Status: Chronic Assessment and Plan: TSH is undetectable and free T4 is elevated. Hold Levothyroxine. I suspect she will no longer require this medication as she is on a very low dose at this time. Plan to repeat in 4-6 weeks and consider dose adjustment as needed per PCP (6) Hyperlipidemia: Qualifiers: Hyperlipidemia type: unspecified Qualified Code(s): E78.5 - Hyperlipidemia, unspecified Code(s): E78.5 - Hyperlipidemia, unspecified Status: Chronic Assessment and Plan: continue atorvastatin (7) PAF (paroxysmal atrial fibrillation): Code(s): I48.0 - Paroxysmal atrial fibrillation Status: Chronic Assessment and Plan: Rate is controlled. she is not on any long-term anti coagulants, likely due to her significant fall risk Continue metoprolol and amiodarone (8) Hypertension: Qualifiers: Hypertension type: essential hypertension Qualified Code(s): I10 - Essential (primary) hypertension Code(s): I10 - Essential (primary) hypertension Status: Chronic Assessment and Plan: blood pressures reviewed today and elevated with diastolic in the 90-100s. Continue metoprolol and hydralazine Resume losartan (9) Frequent falls: Code(s): R29.6 - Repeated falls Status: Acute Assessment and Plan: patient reports that she has had several falls at home recently. Most recently, she lost her footing and tripped. She denies dizziness or lightheadedness. She has been transitioned from independent living to assisted living. Begin PT and OT; recommendations are appreciated Continue fall precautions (10) Hyponatremia: Code(s): E87.1 - Hypo-osmolality and hyponatremia Status: Acute Assessment and Plan: Sodium mildly decreased at 131 and remaining stable. Probably secondary to dehydration. Monitor BMP Subjective Date/time seen: 07/28/20
[2020-07-28] MEDS: ACETAMINOPHEN 325 MG TABLET 650 MG PO (16:58)
[2020-07-28] MEDS: LOSARTAN POTASSIUM 50 MG TABLET PO (17:02)
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
[2020-07-28] MEDS: diazePAM (*CRX) 5 MG TABLET 10 MG PO (18:26)
[2020-07-28] MEDS: LORazepam INJ (*CRX) 2 MG/ML VIAL 0.5 MG IV PUSH (22:03)
[2020-07-28] MEDS: METOPROLOL TARTRATE INJ 5 MG/5 ML VIAL 2.5 MG IV PUSH (22:39)
[2020-07-29] VITALS (8 sets, daily range): BP systolic 156–164; BP diastolic 92–95; PULSE 75–105; RESP 18; TEMP 36.3; O2SAT 95–96
[2020-07-29] MEDS: LIDOCAINE 5% PATCH 1 PATCH TOPICAL (00:33)
[2020-07-29] MEDS: ACETAMINOPHEN 325 MG TABLET 650 MG PO ×2 (00:36→09:50)
[2020-07-29] MEDS: LACTATED RINGERS 1,000 ML 90 ML IV CONT (04:06)
[2020-07-29] MEDS: hydrALAZINE HCL 25 MG TABLET PO (06:21)
[2020-07-29 07:57] LABS: Alanine Aminotransferase 77 U/L (4-35); Albumin Level 3.3 g/dL (3.5-5.1); Alkaline Phosphatase 183 U/L (38-126); Anion Gap 12 mmol/L (8-16); Aspartate Amino Transferase 59 U/L (14-36); Bilirubin,Total 1.1 mg/dL (0.2-1.3); Blood Urea Nitrogen 19 mg/dL (7-17); Calcium 8.5 mg/dL (8.4-10.2); Carbon Dioxide 21 mmol/L (22-30); Chloride 97 mmol/L (98-107); Estimated Glomerular Filt Rate 60; Glucose 203 mg/dL (65-105); Sodium 130 mmol/L (137-145)
[2020-07-29] MEDS: diazePAM (*CRX) 5 MG TABLET 10 MG PO (08:39)
[2020-07-29] MEDS: VENLAFAXINE HCL 75 MG TABLET PO (08:39)
[2020-07-29] MEDS: CLOPIDOGREL BISULFATE 75 MG TABLET PO (08:40)
[2020-07-29] MEDS: METOPROLOL TARTRATE 50 MG TAB PO (08:40)
[2020-07-29] MEDS: LOSARTAN POTASSIUM 50 MG TABLET PO (08:40)
[2020-07-29] MEDS: ATORVASTATIN 10 MG TABLET PO (08:40)
[2020-07-29] MEDS: THERAPEUTIC MULTIVITAMINS/MINERALS TAB (*BKC) 1 TABLET PO (08:40)
[2020-07-29] MEDS: ASCORBIC ACID 500 MG TABLET 1000 MG PO (08:40)
[2020-07-29] MEDS: AMIODARONE HCL 200 MG TABLET PO (08:41)
--- NOTE | 2020-07-29 12:49 | PM.DS ---
DS: Admitting Diagnosis Admitting Diagnosis Admitting Diagnosis: ACUTE KIDNEY INJURY DS: Discharge Diagnosis Discharge Diagnosis (1) Acute on chronic kidney failure: Code(s): N17.9 - Acute kidney failure, unspecified; N18.9 - Chronic kidney disease, unspecified Status: Acute Assessment and Plan: Baseline appears to be 1.1-1.3. At presentation, creatinine was 1.4. Acute increase felt to be secondary to dehydration as patient had poor p.o. intake. Improved with gentle IV fluids and Cr was 0.9 at time of discharge. PO intake improved. Lasix was decreased to 20 mg daily. (2) Chronic diastolic heart failure: Code(s): I50.32 - Chronic diastolic (congestive) heart failure Status: Chronic Assessment and Plan: Patient appears euvolemic at this time and is clinically compensated. IV fluids administered cautiosly given diastolic dysfunction. Continue metoprolol and losartan. Lasix decreased to 20 mg daily. (3) Anxiety and depression: Code(s): F41.9 - Anxiety disorder, unspecified; F32.9 - Major depressive disorder, single episode, unspecified Status: Acute Assessment and Plan: Continue diazepam and venlafaxine. (4) Head injury, acute: Qualifiers: Encounter type: initial encounter Qualified Code(s): S09.90XA - Unspecified injury of head, initial encounter Code(s): S09.90XA - Unspecified injury of head, initial encounter Status: Acute Assessment and Plan: Secondary to ground level fall. She has a small right frontal scalp hematoma as evident on head CT and on exam. Head CT was negative for any acute abnormalities and no intracranial hemorrhage. She was occasionally confused, but per her daughters, she is at her baseline mental status. (5) Hypothyroidism: Qualifiers: Hypothyroidism type: acquired Qualified Code(s): E03.9 - Hypothyroidism, unspecified Code(s): E03.9 - Hypothyroidism, unspecified Status: Chronic Assessment and Plan: TSH is undetectable and free T4 is elevated. Levothyroxine was discontinue. I suspect she will no longer require this medication as she is on a very low dose of 25 mcg. At last hospitalization in May 2020, TSH was also undetectable. Levothyroxine has been decreased since that time. This may be contributing to her anxiety. No tremors or evidence of thyroid storm on exam. Plan to repeat in 4-6 weeks and consider dose adjustment as needed per PCP. (6) Hyperlipidemia: Qualifiers: Hyperlipidemia type: unspecified Qualified Code(s): E78.5 - Hyperlipidemia, unspecified Code(s): E78.5 - Hyperlipidemia, unspecified Status: Chronic Assessment and Plan: Continue atorvastatin (7) PAF (paroxysmal atrial fibrillation): Code(s): I48.0 - Paroxysmal atrial fibrillation Status: Chronic Assessment and Plan: Rate controlled. She is not on any long-term anti coagulants, likely due to her significant fall risk. Continue metoprolol and amiodarone (8) Hypertension: Qualifiers: Hypertension type: essential hypertension Qualified Code(s): I10 - Essential (primary) hypertension Code(s): I10 - Essential (primary) hypertension Status: Chronic Assessment and Plan: Blood pressures reviewed daily and diastolic pressures became elevated, which may be due to IV fluids for REGGIE in setting of diastolic dysfunction. Lasix resumed. Continue metoprolol, hydralazine, and losartan. Recommend monitoring BP at [place]. (9) Frequent falls: Code(s): R29.6 - Repeated falls Status: Acute Assessment and Plan: Patient reports that she has had several falls recently. She resides in assisted living. Most recent fall was mechanical as she reports losing her footing and tripped, causing her to hit her head. Seen by PT and OT during her stay. She will continue home health therapy at [facility]. Fall p
[2020-07-29 18:02] LABS: SARS-CoV-2 RNA PCR Negative
== END 2020-07-29 13:17 | disposition home health service (06) ==
LOC: ANHED 13:33 → ANH2MED 13:55
PROVIDERS: Nurse Practitioner; Physician Assistant; Admitting Provider Family Medicine; Emergency Provider Emergency Medicine; PCP Family Medicine; Visit Provider Internal Medicine
DX: N17.9 Acute kidney failure, unspecified (principal); E87.1 Hypo-osmolality and hyponatremia; E86.0 Dehydration; S00.83XA Contusion of other part of head, initial encounter; Z20.828 Contact with and (suspected) exposure to other viral communicable diseases; I13.0 Hypertensive heart and chronic kidney disease with heart failure and stage 1 through stage 4 chronic kidney disease, or unspecified chronic kidney disease; N18.9 Chronic kidney disease, unspecified; I50.32 Chronic diastolic (congestive) heart failure; E03.9 Hypothyroidism, unspecified; E78.5 Hyperlipidemia, unspecified; F41.8 Other specified anxiety disorders; I48.0 Paroxysmal atrial fibrillation; R29.6 Repeated falls; M47.812 Spondylosis without myelopathy or radiculopathy, cervical region; Z23 Encounter for immunization; W19.XXXA Unspecified fall, initial encounter
CPT/HCPCS: 36415; 70450; 72125; 80048; 80053; 81001; 83735; 85025; 87635; 90471; 90686; 93005; 96361; 96374; 96375; 97161; 97165; 97530; 97535; 99285; A9270; C9803; G0008; G0378; J2060; J7120; U0003

== ENCOUNTER 2020-07-31 12:41 | Emergency (ER) | payer MEDICARE, SELFPAY ==
--- NOTE | ~2020-07-31 | XR_ITS ---
EXAMINATION: XR knee LT min 4V DATE: 07/31/2020 13:48 INDICATION: Left knee pain. TECHNIQUE: 4 views of left knee were obtained. COMPARISON: None. FINDINGS: Bone alignment is normal. No fracture. Joint spaces are well maintained. There is no knee j oint effusion. IMPRESSION: 1. Normal left knee. Reviewed, dictated and finalized at location A. IMPRESSION: 1. Normal left knee.
--- NOTE | ~2020-07-31 | CT_ITS ---
EXAMINATION: CT brain wo con DATE: 07/31/2020 13:08 INDICATION: Headache. Fall. TECHNIQUE: Computed tomography (CT) of the head was performed without intravenous contrast. The mA wa s adjusted according to patient size. Iterative reconstruction technique was employed. The dose-lengt h product was 605.33 mGy-cm. COMPARISON: Head CT 07/27/2020 FINDINGS: There are scattered areas of low attenuation in the cerebral white matter. There is no intr acranial hemorrhage, acute infarction, or abnormal intracranial mass lesion. There is an old lacunar infarct in right caudate nucleus. The ventricles are normal in size. The orbits are normal. There is mild mucosal thickening in the ethmoid sinuses. The mastoid air cells are normal. There is right fron elio scalp soft tissue swelling. There are peripherally calcified masses in the posterior scalp on the left, likely benign. IMPRESSION: 1. 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 2. Extensive nonspecific cerebral white matter disease, which likely represents chronic small vessel ischemic disease. Reviewed, dictated and finalized at location A.
--- NOTE | ~2020-07-31 | XR_ITS ---
XR chest 1V DATE: 07/31/2020 13:48 INDICATION: Shortness of breath, cough. Congestive heart failure. TECHNIQUE: Portable AP chest on 07/31/2020 at 1315 hours COMPARISON: 05/04/2020 portable AP chest at 2132 hours FINDINGS: Status post sternotomy and stent or valve placement. Prominent cardiomegaly. Aortic calcifi cation. There is moderate pulmonary vascular congestion and redistribution. Slight pleural effusions are sugg ested. Mild prominence of the minor fissure. Infiltrate and/atelectasis is suggested primarily in the lower lung zones. Prominent diffuse osteopenia. Surgical clips, right upper quadrant, consistent with cholecystectomy. IMPRESSION: Cardiomegaly, pulmonary vascular congestion, subpleural edema, consistent with mild conge stive heart failure Aortic calcification Mild infiltrates or atelectasis primarily involving the lower lung zones Reviewed, dictated and finalized at location B. IMPRESSION: Cardiomegaly, pulmonary vascular congestion, subpleural edema, cons istent with mild congestive heart failure Aortic calcification Mild infiltrates or atelectasis primarily involving the lower lung zones
--- NOTE | ~2020-07-31 | XR_ITS ---
EXAMINATION: XR femur RT min 2V DATE: 07/31/2020 13:48 INDICATION: Right thigh injury. TECHNIQUE: 2 views of right femur on 4 radiographs were obtained. COMPARISON: None. FINDINGS: There is a comminuted intertrochanteric fracture of proximal right femur. The main distal f racture fragment demonstrates posterior and varus angulation. The right hip and knee joints are daniel l. There are surgical clips in the medial thigh and lower leg. IMPRESSION: 1. Intertrochanteric fracture of proximal right femur. Reviewed, dictated and finalized at location A.
--- NOTE | ~2020-07-31 | CT_ITS ---
EXAMINATION: CT cervical spine wo con DATE: 07/31/2020 13:08 INDICATION: Neck pain. Fall. TECHNIQUE: Computed tomography (CT) of the cervical spine was performed without intravenous contrast. Automated exposure control and iterative reconstruction technique were employed. The dose-length pro duct was 154.30 mGy-cm. COMPARISON: CT cervical spine 07/27/2020, 04/15/2020 FINDINGS: There is a right-sided pleural effusion. There is 3 degrees dextrocurvature of cervical spi ne. There is a burst fracture of T2 with less than 1/5 loss of height and retropulsion of bone 2 mm i nto central spinal canal. There is a chronic compression fracture of T3 superior endplate with less t smith 1/5 loss of height. There is severely decreased disc height at C5-C6 and C6-C7. The following dis c levels are specifically discussed: C2-C3: There is no uncovertebral joint osteoarthritis. There is severe bilateral facet joint osteoart hritis. There is no neural foraminal stenosis. There is no central canal stenosis. C3-C4: There is no uncovertebral joint osteoarthritis. There is moderate right and severe left facet joint osteoarthritis. There is no neural foraminal stenosis. There is no central canal stenosis. C4-C5: There is mild right uncovertebral joint osteoarthritis. There is severe bilateral facet joint osteoarthritis. There is no neural foraminal stenosis. There is no central canal stenosis. C5-C6: There is severe bilateral uncovertebral joint osteoarthritis. There is mild bilateral facet surendra int osteoarthritis. There is mild bilateral neural foraminal stenosis. There is mild central canal st enosis. C6-C7: There is moderate right and severe left uncovertebral joint osteoarthritis. There is moderate bilateral facet joint osteoarthritis. There is mild left neural foraminal stenosis. There is mild kalpesh tral canal stenosis. C7-T1: There is no uncovertebral joint osteoarthritis. There is mild bilateral facet joint osteoarthr itis. There is no neural foraminal stenosis. There is no central canal stenosis. IMPRESSION: 1. Acute T2 burst fracture. 2. Severe cervical spondylosis. 3. Right pleural effusion. Reviewed, dictated and finalized at location A.
--- NOTE | ~2020-07-31 | XR_ITS ---
EXAMINATION: XR hip BI 2V w AP pelvis DATE: 07/31/2020 13:48 INDICATION: Right hip pain. TECHNIQUE: An anteroposterior view of the pelvis and 2 views of each hip were obtained. COMPARISON: None. FINDINGS: There is a comminuted intertrochanteric fracture of proximal right femur. The main distal f racture fragment demonstrates 30 degrees varus angulation, posterior angulation, and 11 mm medial dis placement. The hip joint spaces are normal. There is moderate lumbar spondylosis. There are surgical clips in medial right thigh. A foreign body overlying left inguinal region may be a vascular plug. IMPRESSION: 1. Intertrochanter fracture of proximal right femur. Reviewed, dictated and finalized at location A.
--- NOTE | 2020-07-31 12:49 | ECG_ITS ---
Measurements Intervals [place] Rate: 89 P: ME: 0 QRS: -34 QRSD: 170 T: 146 QT: 451 QTc: 550 Interpretive Statements ATRIAL FIBRILLATION LEFT AXIS DEVIATION LEFT BUNDLE BRANCH BLOCK ABNORMAL ECG Electronically Signed On 07-31-2020 14:22:34 CDT by Reinaldo Crowell D.O.
[2020-07-31 12:50] VITALS: BP 134/89; PULSE 90; RESP 16; TEMP 36.4; O2SAT 97
--- NOTE | 2020-07-31 13:07 | ED.FALL ---
HPI - Fall General Chief Complaint: Extremity Injury, Lower Stated Complaint: FALL/R HIP PAIN Source: family and EMS Mode of arrival: EMS Limitations: altered mental status and dementia History of Present Illness HPI Narrative: This patient is an 80 year old female who presents from [facility] who presents for evaluation after a fall. Patient's daughter states patient has been acting more confused over the past week. They reports patient has been hallucinating about her who has been for years. They states today patient was having nausea and dry heaves. Her granddaughter was assisting patient. She states she turned around and she found patient on the ground. They believe patient may have broken her right hip. Patient states she hurts all over. She has been dealing with frequent falls. She has bruising on her face due to falling a few days ago. She denies numbness or tingling. Related Data Home Medications Medication Instructions Recorded Confirmed acetaminophen 500 mg PO Q6H PRN 05/04/20 07/27/20 ascorbic acid (vitamin C) 1 g PO DAILY 05/04/20 07/27/20 lidocaine 1 patch TOPICAL DAILY PRN 05/04/20 07/27/20 losartan 50 mg PO BID 05/04/20 07/27/20 magnesium hydroxide [Milk of 30 ml PO Q6H PRN #0 05/04/20 07/27/20 Magnesia] metoprolol tartrate 50 mg PO Q12H 05/04/20 07/28/20 amiodarone 200 mg PO DAILY 05/05/20 07/27/20 clopidogrel 75 mg PO DAILY 05/05/20 07/27/20 potassium chloride 20 meq PO DAILY 05/05/20 07/27/20 venlafaxine 75 mg PO DAILY 05/05/20 07/27/20 Daily Multivitamin-Minerals 1 tablet PO DAILY 07/27/20 07/27/20 atorvastatin 10 mg PO DAILY 07/27/20 07/27/20 diazepam 10 mg PO DAILY PRN 07/27/20 07/27/20 diazepam [Valium] 10 mg PO HS 07/27/20 07/27/20 furosemide 20 mg PO DAILY 07/27/20 07/27/20 hydralazine 25 mg PO TID 07/27/20 07/27/20 Allergies Allergy/AdvReac Type Severity Reaction Status Date / Time amlodipine [From Norvasc] Allergy Unknown Unknown Verified 07/27/20 16:02 mirtazapine [From Remeron] Allergy Unknown Unknown Verified 07/27/20 16:02 risedronate sodium Allergy Unknown Unknown Verified 07/27/20 16:02 [From Actonel] cinnamon Allergy Unknown Verified 07/27/20 16:02 garlic Allergy Unknown Verified 07/27/20 16:02 prochlorperazine Allergy Unknown Verified 07/27/20 16:02 Sulfa (Sulfonamide Allergy Unknown Verified 07/27/20 16:02 Antibiotics) Review of Systems Review of Systems: ROS unobtainable: Yes unobtainable due to mental status [facility] Past Medical History Medical History (Updated 08/03/20 @ 04:07 by Windy Elias MD) Acute metabolic encephalopathy Acute respiratory failure with hypoxia Anxiety Aortic stenosis Severe Atrial flutter Burst fracture of lumbar vertebra Chronic diastolic heart failure Chronic renal failure, stage 3 (moderate) Congestive heart failure Mixed Coronary artery disease Depression DVT prophylaxis Foot fracture, right Hallucination, visual History of basal cell carcinoma History of stent insertion of renal artery Hyperlipidemia Hypertension Hypokalemia Hypothyroidism Hypoxemia Influenza A Left wrist fracture Myocardial infarction Osteoporosis PAF (paroxysmal atrial fibrillation) Cardioverted Persistent atrial fibrillation Pneumonia Renal artery stenosis Occluded right renal artery UTI (urinary tract infection) Social History Social History (Updated 07/27/20 @ 20:49 by Deysi Saenz NP) Social History: She still continues to live at [facility]. 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 Smoking status: Never smoker Second hand tobacco smoke exposure: Yes Alcohol intake: never Substance use: never Substance use type: does not use Additional living arrangements comments: [facility] Gender identity (if verbalized by the patient): Female S
[2020-07-31 14:11] LABS: Alveolar/Arterial O2 Gradient 90.2 mmHg; Base Excess ABG -4.2 mEq/l (+/-2.0); Carboxyhemoglobin 1.7 % THb (0-2.0); Fractional Inspired Oxygen 28 %; Methemoglobin ABG 0.3 %THb (0-1.5); Oxygen Content ABG 15.2 %vol (16.0-22.0); Oxygen Saturation ABG 94.1 % (95.0-100.0); Oxyhemoglobin 90.5 % THb (90.0-100.0); PCO2 ABG 33.7 mmHg (35.0-45.0); PO2 ABG 69.7 mmHg (80.0-100.0); PO2 FiO2 Ratio Arterial Blood 2.49 %; Reduced Hemoglobin 7.5 %THb (0-5.0); Total Hemoglobin 11.9 g/dL (12.0-18.0); pH ABG 7.391 (7.350-7.450)
[2020-07-31 14:12] LABS: Device NASAL CANNULA; Modified Allen's Test Pass; Site Drawn LEFT RADIAL
[2020-07-31 14:27] LABS: INR 1.3; Partial Thromboplastin Time 26.9 SECONDS (22.3-36.8); Prothrombin Time 16.1 Seconds (11.1-14.7)
[2020-07-31 14:32] LABS: Basophils Percent Auto 0.3 % (0.2-1.2); Eosinophils Absolute Auto 0.1 K/mm3 (0-0.3); Eosinophils Percent Auto 0.5 % (0-4.4); Hematocrit 35.7 % (37.0-47.0); Hemoglobin 11.4 g/dL (12.0-15.0); Immature Granulocyte Absolute 0.08 K/mm3 (0.00-0.031); Immature Granulocyte Percent A 0.7 % (0-0.5); Lymphocytes Percent Auto 5.5 % (18.3-44.2); Mean Corpuscular HGB Conc 31.9 g/dl (32-36); Mean Corpuscular Hemoglobin 29.5 pg (26-34); Mean Corpuscular Volume 92.5 fl (80-100); Mean Platelet Volume 10.6 fl (7.4-10.4); Monocytes Absolute Auto 0.9 K/mm3 (0.1-0.6); Neutrophils Absolute Auto 9.2 K/mm3 (1.3-6.7); Nucleated Red Blood Cells Perc 0.3 % (0.0-0.2); Platelet Count Result 241 k/mm3 (150-375); Red Blood Count 3.86 M/mm3 (4.2-5.4); Red Cell Distribution Width 18.2 % (11.5-14.5); White Blood Count 10.9 K/mm3 (4.5-10.0)
[2020-07-31 14:40] LABS: Alanine Aminotransferase 90 U/L (4-35); Albumin Level 3.4 g/dL (3.5-5.1); Alkaline Phosphatase 272 U/L (38-126); Anion Gap 11 mmol/L (8-16); Aspartate Amino Transferase 77 U/L (14-36); Bilirubin,Total 1.5 mg/dL (0.2-1.3); Blood Urea Nitrogen 25 mg/dL (7-17); Calcium 8.8 mg/dL (8.4-10.2); Carbon Dioxide 22 mmol/L (22-30); Chloride 100 mmol/L (98-107); Estimated CRCL calculation 24 ml/min; Estimated Glomerular Filt Rate 39; Glucose 159 mg/dL (65-105); Magnesium 1.8 mg/dL (1.6-2.3); Potassium 6.3 mmol/L (3.4-5.0); Sodium 133 mmol/L (137-145)
[2020-07-31 14:57] LABS: Add Urine Microscopic? YES; Appearance Urine Clear (Clear); Bilirubin Urine Negative (Negative); Blood Urine Negative (Negative); Color Urine Yellow (Yellow); Glucose Urine UA Negative (Negative); Ketones Urine Negative (Negative); Leukocyte Esterase Ur Negative LEU/UL (Negative); Nitrate Urine Negative (Negative); Protein Urine 2+ mg/dL (Negative); RBC Urine 0-2 /hpf (0-2); Specific Grav Ur 1.012 (1.001-1.035); Urobilinogen Urine Negative mg/dL (<2.0); WBC Urine 0-3 /hpf
[2020-07-31] MEDS: INSULIN HUMAN REGULAR (*BKC) 100 UNITS/ML 10 UNITS IV PUSH (15:11)
[2020-07-31] MEDS: FUROSEMIDE INJ 40 MG/4 ML VIAL 20 MG IV PUSH (15:12)
[2020-07-31] MEDS: DEXTROSE 50% 25 GM/50 ML SYRINGE IV PUSH (15:12)
[2020-07-31 15:16] VITALS: BP 157/68; PULSE 72; RESP 18; O2SAT 94
[2020-07-31] MEDS: SODIUM BICARBONATE 8.4% 50 MEQ/50 ML VIAL IV PUSH (15:26)
[2020-07-31] MEDS: MORPHINE SULFATE (*CRX) 2 MG/ML INJ IV PUSH (15:26)
[2020-07-31] MEDS: ONDANSETRON INJ 4 MG/2 ML VIAL IV PUSH (15:26)
[2020-07-31] MEDS: CALCIUM GLUC 1,000 MG/NS 50 ML 1,000 MG/50 ML BAG 100 MG IVPB (16:21)
[2020-07-31 17:14] LABS: Potassium 4.7 mmol/L (3.4-5.0)
[2020-07-31 19:34] VITALS: BP 133/78; PULSE 78; RESP 20; O2SAT 99
[2020-07-31] MEDS: LORazepam INJ (*CRX) 2 MG/ML VIAL 1 MG IV PUSH (20:05)
[2020-07-31 20:08] VITALS: BP 123/96; PULSE 100; RESP 18; O2SAT 96
[2020-07-31 21:15] VITALS: BP 112/66; PULSE 70; RESP 18
--- NOTE | 2020-07-31 22:28 | PC.NURSE ---
called [facility] for transport. ETA [id number]
--- NOTE | 2020-07-31 22:28 | PC.NURSE ---
report called to meghan guerra at [facility]. [facility] called for transport
[2020-07-31 23:09] VITALS: BP 117/79; PULSE 73; RESP 16; O2SAT 99
--- NOTE | 2020-07-31 23:21 | PC.NURSE ---
[facility] called to update ETA to 0015 to 0030 Called [facility] to request transport. declined
--- NOTE | 2020-07-31 23:32 | PC.NURSE ---
Called [facility] to request transport. They declined Called [facility] to request transport. They declined. Called [facility] to request transport. Accepted and ETA is drive time from [place].
--- NOTE | 2020-07-31 23:34 | PC.NURSE ---
Assumed care of pt. Report from MILIND Kellogg
[2020-08-01 00:19] VITALS: BP 116/59; PULSE 78; RESP 19; O2SAT 98
== END 2020-08-01 00:19 | disposition short-term general hospital (02) ==
LOC: ANHED 12:50
PROVIDERS: Emergency Provider General Practice; PCP Family Medicine
DX: S22.021A Stable burst fracture of second thoracic vertebra, initial encounter for closed fracture (principal); S72.141A Displaced intertrochanteric fracture of right femur, initial encounter for closed fracture; E87.5 Hyperkalemia; F41.9 Anxiety disorder, unspecified; I35.0 Nonrheumatic aortic (valve) stenosis; I48.92 Unspecified atrial flutter; I13.0 Hypertensive heart and chronic kidney disease with heart failure and stage 1 through stage 4 chronic kidney disease, or unspecified chronic kidney disease; N18.3 Chronic kidney disease, stage 3 (moderate); I25.10 Atherosclerotic heart disease of native coronary artery without angina pectoris; I50.42 Chronic combined systolic (congestive) and diastolic (congestive) heart failure; Z85.828 Personal history of other malignant neoplasm of skin; E78.5 Hyperlipidemia, unspecified; I25.2 Old myocardial infarction; M81.0 Age-related osteoporosis without current pathological fracture; I48.19 Other persistent atrial fibrillation; Z87.440 Personal history of urinary (tract) infections; I44.7 Left bundle-branch block, unspecified; M47.812 Spondylosis without myelopathy or radiculopathy, cervical region; R90.82 White matter disease, unspecified; R29.6 Repeated falls; W19.XXXA Unspecified fall, initial encounter
CPT/HCPCS: 36415; 36600; 70450; 71045; 72125; 73521; 73552; 73564; 80053; 81001; 82375; 82805; 83050; 83735; 84132; 85025; 85610; 85730; 93005; 96365; 96367; 96375; 99285; J0131; J0610; J1815; J1940; J2060; J2270; J2405